=== PATIENT | female | born 1950 | race Caucasian/White ===

== ENCOUNTER 2021-11-21 16:34 | Emergency (ER) | payer MEDICARE, BC, SELFPAY ==
[2021-11-21 16:40] VITALS: BP 145/86; PULSE 80; RESP 20; TEMP 36.4; O2SAT 96; BMI 28.4
[2021-11-21 18:33] VITALS: BP 166/80; PULSE 68; RESP 18; O2SAT 95
--- NOTE | 2021-11-21 19:01 | ED.GENADULT ---
HPI - General Adult General Time Seen by Provider: 19:00 Date Seen: 11/21/21 Chief complaint: Sore Throat Stated complaint: CANNOT BREATHE Time Seen by Provider: 11/21/21 18:39 Source: patient and family History of Present Illness HPI narrative: This 71-year-old female comes in reporting tightness in her throat causing some symptoms of stridor in feeling short of breath. These symptoms began a few hours ago. She has had similar circumstances in the past. Once was a couple years ago and again just last week. I was the doctor that took air for last week and noted that she benefited from racemic epinephrine. She had some stridorous breathing but her lungs were normal. Also last week a CT scan of the soft tissue of the neck was done with contrast showing no obvious findings to explain her symptoms. The patient does not report any fevers. She was discharged with some prescriptions for Protonix and I encouraged use of over counter medicines for treating allergy symptoms. She states she has been taking her medications as prescribed. Related Data Home Medications Medication Instructions Recorded Confirmed albuterol sulfate 90 mcg/actuation 2 inh INHALATION PRN 11/19/21 11/19/21 aerosol inhaler ascorbic acid (vitamin C) 500 mg 500 mg PO DAILY tab 11/19/21 11/21/21 tablet aspirin 81 mg tablet,delayed 81 mg PO QDAY 11/19/21 11/21/21 release budesonide-formoterol HFA 160 2 inh INHALATION BID g 11/19/21 11/21/21 mcg-4.5 mcg/actuation aerosol inhaler calcium carbonate 200 mg calcium 200 mg PO .As Needed PRN 11/19/21 11/21/21 (500 mg) chewable tablet cholestyramine-aspartame 4 gram 4 ea PO DAILY ea 11/19/21 11/19/21 oral powder for susp in a packet fluticasone propionate 50 1 spray INTRANASAL DAILY g 11/19/21 11/19/21 mcg/actuation nasal spray,suspension ibuprofen 200 mg tablet mg PO .Qid Prn 11/19/21 11/19/21 levalbuterol HCl 1.25 mg/3 mL mg INHALATION PRN 11/19/21 11/19/21 solution for nebulization montelukast 10 mg tablet 10 mg PO .Bedtime 11/19/21 11/19/21 potassium chloride 10 mEq 10 meq PO PRN 11/19/21 11/19/21 tablet,extended release(part/cryst) pravastatin 20 mg tablet 20 mg PO .Bedtime tab 11/19/21 11/21/21 triamterene 37.5 1 tab PO DAILY 11/19/21 11/19/21 mg-hydrochlorothiazide 25 mg tablet Allergies Allergy/AdvReac Type Severity Reaction Status Date / Time Cephalosporins Allergy Severe throat Verified 11/18/21 09:56 swelling triamcinolone Allergy Severe throat Verified 11/18/21 09:56 swells shut penicillin V Allergy Mild Hives Verified 11/18/21 09:56 lovastatin Allergy Unknown Hives Verified 11/18/21 09:56 psyllium AdvReac Unknown Verified 11/18/21 09:56 Molds & Smuts Allergy Severe Uncoded 11/18/21 09:56 Erythromycin Allergy Unknown Hives Uncoded 11/18/21 09:56 Review of Systems Status of ROS: Reports: 10 or more systems reviewed and unremarkable except as noted in History and below Narrative: Constitutional: No fevers, no weight gain or loss. Eyes: No discharge. No vision changes. HENT: No congestion, no sore throat, no ear pain. Cardiovascular: No chest pain, no palpitations. Respiratory: No no wheezes, no cough. Tightness in the throat with associated shortness of breath. Gastrointestinal: No abdominal pain, no vomiting, no diarrhea. Genitourinary: No dysuria, no hematuria. Musculoskeletal: Normal range of motion. Skin: No rashes, no pruritis. Neurological: No dizziness, weakness, sensory change, speech change. Endo/Heme/Allergies: No bruising or bleeding. No polydipsia. Pysch: no suicidality, no anxiety, no insomnia. All other systems reviewed and are negative. [facility] Medical History Exacerbation of asthma History of colonic polyps (06/13/10) Surgical History History of cholecystectomy (06/13/10) History of dilation and curettage (06/13/10) Status post cataract extraction Social History Smoking Status: Never smoker Do you use any of these nicotine containing products: None Second hand tobacco smoke exposure: No How often do you have a drink containing alcohol: never AUDIT-C Alcohol total score: 0 Non-prescribed substance use: denies use Exam Narrative: Exam Narrative: Constitutional: Well-developed, well-nourished. HEENT: Normocephalic, atraumatic. Neck: Normal range of motion. Nontender. Supple. Heart: Regular. No murmurs. Normal rate. Intact distal pulses. Lungs: Clear to auscultation. No chest discomfort. No wheezes, rhonchi, or rales. Some mild stridorous breathing. Abdomen: Normal bowel sounds. Nontender. No rebound tenderness. Genitalia: Deferred. Back: No midline tenderness. Normal range of motion. Extremities: Normal range of motion. No injury. Skin: Intact. No rash. Warm. No erythema or pallor. Neurologic: No altered sensation. No weakness. Alert and oriented. Psychiatric: No suicidality. No depression. No insomnia. Some anxiety about her breathing. Nursing notes and vitals signs are reviewed. Const: Vital Signs, click to edit/add: Vital Signs - 24 hr 11/21/21 16:40 11/21/21 18:33 Temperature 97.5 F L Pulse Rate [Right Pulse Oximeter] 80 68 Respiratory Rate 20 18 Blood Pressure [Ri ght Upper Arm] 145/86 H 166/80 H Pulse Oximetry 96 95 Course Course Hospital Course: This patient comes in with some distress with regard to her breathing because of tightness feeling in her neck. Her exam is otherwise rather normal. She received a nebulizer of racemic epinephrine. Vital Signs Vital signs: Initial Vital Signs Temperature 97.5 F L 11/21/21 16:40 Temperature Source Temporal Artery Scan 11/21/21 16:40 Pulse Rate 80 11/21/21 16:40 Respiratory Rate 20 11/21/21 16:40 Blood Pressure 145/86 H 11/21/21 16:40 Blood Pressure Mean 105 11/21/21 16:40 Blood Pressure Position Sitting 11/21/21 16:40 Pulse Oximetry 96 11/21/21 16:40 Oxygen Delivery Method 11/21/21 16:40 Vital Signs Temperature 97.5 F L 11/21/21 16:40 Pulse Rate 80 11/21/21 16:40 Respiratory Rate 20 11/21/21 16:40 Blood Pressure 145/86 H 11/21/21 16:40 Pulse Oximetry 96 11/21/21 16:40 Temperature 97.5 F L 11/21/21 16:40 Pulse Rate 68 11/21/21 18:33 Respiratory Rate 18 11/21/21 18:33 Blood Pressure 166/80 H 11/21/21 18:33 Pulse Oximetry 95 11/21/21 18:33 Medical Decision Making MDM Narrative Medical decision making narrative: This patient comes in with tightness in her breathing as is happened in the past. Her lungs sound clear but she has some straining of her voice and does report some associated anxiety related to these symptoms that are recurrent. She had significant stridor last week and had a full workup. Those results were all reassuring. The patient was improved with epinephrine by a nebulizer last week along with some Ativan. These 2 medicines were administered this week with significant improvement of her symptoms. There certainly is an anxiety component to her symptoms. It given her normal vital signs and exam except for the stridor in her voice and seeing the full workup that was done last week a discussed with the patient about repeating any of these studies. In a process of shared decision making these were declined. The patient does have a follow-up appointment with her primary physician tomorrow. She may benefit from a an upper GI scope for further diagnostic evaluation. She received a prescription for some tablets of Ativan that can be used as needed and directed. Discharge Plan Discharge Clinical Impression: Intermittent stridor Condition: Improved Additional Instructions: Take medication as prescribed. Follow up with MD tomorrow as scheduled. Return if recurrent or worsening symptoms happen. Activity Level: Activity as Tolerated Prescriptions: No Action ibuprofen 200 mg tablet PO .Qid Prn 0RF calcium carbonate 200 mg calcium (500 mg) tablet,chewable 200 mg PO .As Needed PRN0RF ascorbic acid (vitamin C) 500 mg tablet 500 mg PO DAILY 0RF aspirin 81 mg tablet,delayed release (DR/EC) 81 mg PO QDAY 0RF budesonide-formoterol 160-4.5 mcg/actuation HFA aerosol inhaler 2 inh inhalation BID 0RF potassium chloride 10 mEq tablet,ER particles/crystals 10 meq PO PRN0RF cholestyramine-aspartame 4 gram powder in packet 4 ea PO DAILY 0RF fluticasone propionate 50 mcg/actuation spray,suspension 1 spray intranasal DAILY 0RF albuterol sulfate 90 mcg/actuation HFA aerosol inhaler 2 inh inhalation PRN0RF levalbuterol HCl 1.25 mg/3 mL solution for nebulization inhalation PRN0RF pravastatin 20 mg tablet 20 mg PO .Bedtime 0RF montelukast 10 mg tablet 10 mg PO .Bedtime 0RF triamterene-hydrochlorothiazid 37.5-25 mg tablet 1 tab PO DAILY 0RF Rx Instructions: STRENGTH IS 37.5/25 Follow Up/Referrals: Milad Trejo MD [Primary Care Provider] - Stand Alone Forms: [place] Info Instructions
[2021-11-21] MEDS: RACEPINEPHRINE HCL 0.5 ML VIAL.NEB NEB ×2 (19:12→19:57)
[2021-11-21] MEDS: LORazepam 0.5 MG TABLET PO (19:56)
== END 2021-11-21 20:54 ==
PROVIDERS: Emergency Provider Emergency Medicine Emergency Medical Services; PCP Family Medicine
DX: R06.1 Stridor (principal)
CPT/HCPCS: 94640; 99283; 99284; A9270

== ENCOUNTER 2021-12-19 13:44 | Outpatient (CLI) | payer MEDICARE, BC, SELFPAY ==
--- OUTSIDE RECORDS SUMMARY | 2021-11-15 10:05 | XMS_ITS | Continuity of Care Document ---
:1950 Author Care Team Providers Name Role Phone MD Dilshad Trejo Attending Physician MD Dilshad Trejo Primary Care Physician Allergies, Adverse Reactions, Alerts Allergen Type Severity Reaction Last Verified Status Updated Erythromycin Allergy Mild HIVES June Yes Active 2019 Penicillin v Allergy Mild HIVES June Yes Active 2019 Psyllium Adverse Unknown June Yes Active Reaction 2019 Triamcinolone Allergy Severe throat June Yes Active swells shut 2019 Lovastatin Allergy Unknown Hives June Yes Active 2019 Molds & Smuts Allergy Severe February Yes Active 2019 Cephalosporins Allergy Severe THROAT June Yes Activ e SWELLING 2019 Social History Smoking Status Status Start Date End Date Date of Observat ion Ex-smoker (finding) March 3:28pm Observation Status Observation Response Date of Response History provided by Patient June 10, 2019 1 2:00am Where do you live? Own home/apt June 10, 2019 1 2:00am With whom do you live? Spouse June 10 0 12:00am Adult children June 10, 2019 1 2:00am Additional Data Assigned Sex Female Problems Active Problems Medical Problem Onset Date Status History of colon polyps June 13, 2010 Active Asthma June 13, 2010 Active Environmental and seasonal June 13, 2010 Active allergies Obesity with body mass index 30 or Activ e greater Pulmonary nodule Resolved Hyperlipidemia Active Essential hypertension Active Fatty infiltration of liver Active Chronic diarrhea Active Osteopenia Active Diabetes mellitus, type II Active Numbness and tingling of left Active upper extremity Heat exhaustion, unspecified Active vag. hysterectomy without June 13, 2010 Resolved oophorectomy History of dilatation and June 13, 2010 Resolved curettage Removal of nasal polyps June 13, 2010 Resolved Hx of cholecystectomy June 13, 2010 Resolved Knee Scope and Repair Resolved Status post cataract extraction Active Inactive/Resolved Problems Medical Problem Onset Date Status Asthma exacerbation Resolved Medications Medication Status Dose Units Route Directions Qty Days Start End Ins tructions Date Date Albuterol Active 2 PUFF INH Every 4 3 Novembe (Ventolin Hours as r 19, Hfa) 90 Mcg needed 2020 DOSE 11:00am Ascorbic Active 500 MG PO Daily Acid (Vitamin C) 500 Mg TAB Aspirin Active 1 TABLET PO Daily Budesonide-F Active 2 PUFF INH Twice A Day 3 90 Novembe ormoterol r , Fumarate 2020 (Symbicort) 11:00am 160 Mcg/4.5 Mcg INH Calcium Active 500 MG OR As Needed Carbonate (Antacid) (Tums) 500 Mg CHW Cholestyrami Active 4 GM PO Daily 1 Novembe ne Light r , 2020 11:00am Fluticasone Active 1 SPRAY EACH Daily 3 Novembe Propionate NOSTR r , (Nasal) 2020 11:00am Ibuprofen Active 600 MG PO Qid Prn Influenza Active 0.5 ML IM Once 22 February Virus Vacc , Triv Types 2007 A&B 4:52pm (Fluarix) 0.5 Ml INJ Levalbuterol Active 3 MG NEB Every 4 270 Novembe Hcl Hours as r 19, (Xopenex) needed 2020 1.25 Mg/3 Ml 11:00am NEB Metformin Active 750 MG PO Daily 90 Novembe TAKE WI TH Hcl r 19, EVENING MEAL (Metformin 2020 Hcl Er) 750 11:02am Mg TABCR Montelukast Active 10 MG PO Bedtime 90 Novembe Sodium r 19, (Singulair) 2020 10 Mg TAB 11:00am Omeprazole Active 20 MG PO Daily 90 Novembe Magnesium r 19, (Omeprazole) 2020 20 Mg TAB 11:00am Potassium Active 10 MEQ PO Twice A Day 180 Novembe Chloride as needed r 19, Microencaps 2020 (Potassium 11:00am Chloride Er) 10 Meq TAB Pravastatin Active 20 MG PO Bedtime 90 Novembe Sodium r , 2020 11:02am Prednisone Active 20 MG PO Twice A Day 13 1 Tab twice er daily for 5 , days, then 2020 daily for 3 9:16am days. Triamterene/ Active 1 TABLET PO Daily 90 Novembe STR ENGTH IS Hctz r , 37.52020 11:00am Acetaminophe Disconti 1 - 2 TABLET PO Four Times 23 June Ja nuar PRN n/Hydrocodon nued Daily , y e Bitart 2006, (Vicodin) 5 1:31pm 2007 Mg/500 Mg 2:24pm TAB Albuterol Disconti 2 PUFF INH Every 4 (Ventolin nued Hours as r 13th, er Hfa) 90 Mcg needed 2019, DOSE 9:44am 2020 11:00a m Albuterol Disconti 2 PUFF INH Every 4 February (Ventolin nued Hours as 23rd, er Hfa) 90 Mcg needed 2018, DOSE 11:53am 2019 9:44am Albuterol Disconti 2 PUFF INH Every 4 Novemberobe (Ventolin nued Hours as 30, r Hfa) 90 Mcg needed 2017, DOSE 9:21am 2018 11:53a m Albuterol Disconti 2 PUFF INH Every 4 3 November (Ventolin nued Hours as er 7th, 30th, Hfa) 90 Mcg needed 2016 2017 DOSE 2:00pm 9:21am Albuterol Disconti 2 PUFF INH Every 4 3 (Ventolin nued Hours as r 9th, alex Hfa) 90 Mcg needed 2015 11, DOSE 12:52pm 2016 2:00pm Albuterol Disconti 2 PUFF INH Every 4 February (Ventolin nued Hours as 1st, er Hfa) 90 Mcg needed 2015 01, DOSE 4:19pm 2015 12:52p m Albuterol Disconti 2 PUFF INH Every 4 25 May Octobe (Ventolin nued Hours as 19th, r 1st, Hfa) 90 Mcg needed 2014 2014 DOSE 3:40pm 4:19pm Albuterol Disconti 2 PUFF INH Q4-6H Prn 1 Decembe Suryar (Ventolin nued r 6th, y Hfa) 1 Puff 2011, INHA 3:30pm 2014 3:40pm Albuterol Disconti 1 - 2 PUFF INH Every 4-6 1 Decembe Decemb (Ventolin nued Hours as r 2nd, er Hfa) 1 Puff needed 2010 06, INHA 4:07pm 2010 5:41pm Albuterol Disconti 1 - 2 PUFF INH Every 4-6 September (Ventolin nued Hours as 11, er Hfa) 1 Puff needed 2010 06, INHA 3:46pm 2010 4:07pm Albuterol Disconti 90 MCG IN As Needed February 1-2 puffs (Proventil) nued , alex four soheila es 90 Mcg AER 2008, daily, as 9:02pm 2010 needed. Use 6:16pm spacer. Albuterol Disconti 90 MCG IN As Needed December (Proventil) nued , r 1st, 90 Mcg AER 2007 2008 5:30pm 9:02pm Albuterol Disconti 90 MCG IN As Needed October (Proventil) nued , 14th, 90 Mcg AER 2005 2007 4:58pm 1:23pm Albuterol Disconti 90 MCG IN As Needed September (Proventil) nued , , 90 Mcg AER 2005 2005 3:02pm 4:58pm Albuterol Disconti 90 MCG IN As Needed Februa (Proventil) nued ry 90 Mcg AER 2005 2:11pm Albuterol Disconti Februa (Ventolin nued ry Hfa) 90 Mcg , DOSE 2005 2:09pm Azithromycin Disconti 0 PO Daily September BRIE E 500 MG (Zithromax) nued , alex DAY ONE 250 Mg TAB 2010, FOLLOWED BY 3:43pm 2010 250 MG DAILY 9:51am FOR 4 MORE DAYS Azithromycin Disconti 500 MG PO Daily Mayr (Zithromax) nued , y 500 Mg TAB 2006, 3:34pm 2006 2:24pm Budesonide-F Disconti 2 PUFF INH Twice A Day Novem No vemb ormoterol nued , er Fumarate 2019, (Symbicort) 9:44am 2020 160 Mcg/4.5 11:00a Mcg INH m Budesonide-F Disconti 2 PUFF INH Twice A Day 22 February No vemb ormoterol nued , er Fumarate 2019, (Symbicort) 10:54am 2019 160 Mcg/4.5 9:44am Mcg INH Budesonide-F Disconti 2 PUFF INH Twice A Day 1 Oc saurav ormoterol nued y 14, r Fumarate 2020 04, (Symbicort) 12:52pm 2019 160 Mcg/4.5 10:54a Mcg INH m Budesonide-F Disconti 2 PUFF INH Twice A Day 1 February brua ormoterol nued 9, ry Fumarate 2018, (Symbicort) 8:48pm 2019 160 Mcg/4.5 12:52p Mcg INH m Budesonide-F Disconti 2 PUFF INH Twice A Day 1 December obe ormoterol nued , r 9, Fumarate 2018 2018 (Symbicort) 11:18am 8:48pm 160 Mcg/4.5 Mcg INH Calcium/Jing Disconti 2 TAB PO Daily Novemb min D nued er (Calcium , Carbonate/Vi 2020 tamin D) 500 10:27a Mg/200 Unit m TAB Cholecalcife Disconti 2000 UNIT PO Daily November rol (Vitamin nued , D) 2,000 2016 Unit TAB 3:54pm Cholestyrami Disconti 4 GM PO 1-2 Times 90 Decembe Ric h Take other ne nued Daily as r 2nd, , oral (Questran) 4 needed 2010 2012 medica tions Gm POW 4:07pm 4:09pm at least on e hour before this one. Cholestyrami Disconti 4 GM PO 1-3 Times 90 Decembe Dece mb Take other ne nued Daily as r 8th, er oral (Questran) 4 needed 2009 2nd, medica tions Gm POW 2:00pm 2010 at least one 4:07pm hour before this one. Cholestyrami Disconti 4 GM PO 1-3 Times 90 Hcana Decemb Take other ne nued Daily as 29, er oral (Questran) 4 needed 2009 8th, medica tions Gm POW 3:19pm 2009 at least one 2:00pm hour before this one. Cholestyrami Disconti 4 GM PO Daily ne Light nued r 13, er 2020 , 9:44am 2020 11:00a m Cholestyrami Disconti 4 GM PO Daily May ne Light nued , er 2019, 3:40pm 2019 9:44am Clotrimazole Disconti 10 MG PO 5X/Day (Clotrimazol nued r , er e Nathaly) 2019, Mg TROC 9:44am 2020 10:27a m Clotrimazole Disconti 10 MG PO 5X/Day September (Clotrimazol nued , er e Nathaly) 2019, Mg TROC 3:22pm 2019 9:44am Cyclobenzapr Disconti 10 MG PO Bedtime as February emb ine Hcl nued needed , er 2018 9, 10:40am 2019 2:42pm Cyclobenzapr Disconti 10 MG PO Three Times 30 Ja nuar ine Hcl nued A Day er y (Flexeril) , , 10 Mg TAB 2012 2013 2:48pm 8:00am Cyclobenzapr Disconti 10 MG PO Three Times 30 Se ptem ine Hcl nued A Day er 6th, alex (Flexeril) 2012 16, 10 Mg TAB 4:21pm 2012 2:48pm Cyclobenzapr Disconti 10 MG PO Three Times 21 January Sep tem ine Hcl nued A Day , alex (Flexeril) 2012 10, 10 Mg TAB 3:17pm 2012 4:21pm Diphtheria/T Disconti 0.5 ML IM Once May etanus/Acell nu, y Pertussis 2010, (Adacel) 0.5 9:24am 2010 Ml INJ 9:44am Ergocalcifer Disconti 74066 UNIT PO Every 7 May ol (Vitamin nued Days , y D) 50,000 2013, Unt CAP 3:57pm 2014 3:09pm Esomeprazole Disconti 40 MG PO Daily December (Nexium) 40 nued , y Mg CAP 2007, 6:25pm 2008 12:19p m Esomeprazole Disconti 40 MG PO Daily September (Nexium) 40 nued , , Mg CAP 2006 2007 6:43pm 4:32pm Esomeprazole Disconti 40 MG PO Daily September (Nexium) 40 nued y , , Mg CAP 2006 2006 11:42am 6:43pm Esomeprazole Disconti 40 MG PO Daily Octoberua (Nexium) 40 nued , ry Mg CAP 2006 01, 4:58pm 2006 11:42a m Esomeprazole Disconti 40 MG PO Daily 90 August (Nexium) 40 nued , , Mg CAP 2005 2005 5:10pm 4:58pm Esomeprazole Disconti 40 MG PO Daily 90 Februar August (Nexium) 40 nued y , , Mg CAP 2005 2005 10:55am 5:10pm Esomeprazole Disconti 20 MG PO Daily 30 Februar Februa Magnesium nued y , ry (Nexium) 20 2005, Mg CAP 10:51am 2005 10:55a m Esomeprazole Disconti 20 MG PO Daily Februa Magnesium nued ry (Nexium) 20 , Mg CAP 2005 10:51a m Famotidine-C Disconti 1 TAB PO Daily 90 Novembe Novemb alcium nued r 13, er Carbonate-M 2019, (Pepcid 9:44am 2020 Complete) 10 10:27a Mg TAB m Famotidine-C Disconti 1 TAB PO Daily 60 Februar Novemb alcium nued y , er Carbonate-M 2019, (Pepcid 12:32pm 2019 Complete) 10 9:44am Mg TAB Ferrous Disconti 325 MG PO Daily 30 Februar July Sulfate nued y 15, , (Iron 2007 2008 (Ferrous 6:01pm 3:55pm Sulfate)) 325 Mg TAB Fluticasone Disconti 1 SPRAY EACH Daily 3 Novembe Novemb Propionate nued NOSTR r 9, er (Fluticasone 2015, Propionate 12:53pm 2016 (Nasal)) 50 10:12a Mcg/1 [place] m INH Fluticasone Disconti 1 SPRAY EACH Daily 22 February Novemb Propionate nued NOSTR , er (Fluticasone 2015 01, Propionate 4:19pm 2016 (Nasal)) 50 12:53p Mcg/1 [place] m INH Fluticasone Disconti 1 SPRAY EACH Daily 1 Februar Octobe Propionate nued NOSTR y , r 1st, (Fluticasone 2013 2014 Propionate 4:19pm 4:19pm (Nasal)) 50 Mcg/1 [place] INH Fluticasone Disconti 1 SPRAY EACH Daily May Propionate nued NOSTR 14th, 15th, (Fluticasone 2013 2013 Propionate 3:18pm 12:54p (Nasal)) 50 m Mcg/1 [place] INH Fluticasone Disconti 1 SPRAY EACH Daily 1 Decembe Januar Propionate nued NOSTR r 17th, y (Fluticasone 2012 14, Propionate 2:25pm 2013 (Nasal)) 50 3:18pm Mcg/1 [place] INH Fluticasone Disconti 1 SPRAY EACH Daily 1 Decembe Decemb Propionate nued NOSTR r 6th, er (Fluticasone 2011, Propionate 3:30pm 2012 (Nasal)) 50 2:25pm Mcg/1 [place] INH Fluticasone Disconti Februa Propionate nued ry (Flonase) 50 22nd, Mcg/1 [place] 2005 JOSE 2:09pm Fluticasone Disconti 1 SPRAY EACH Daily 3 Novembe Novemb Propionate nued NOSTR r 13th, er (Nasal) 2019, 9:44am 2020 11:00a m Fluticasone Disconti 1 SPRAY EACH Daily 3 Februar Novemb Propionate nued NOSTR y 10th, er (Nasal) 2019 13, 1:40pm 2019 9:44am Fluticasone Disconti 1 SPRAY EACH Daily 3 November Februa Propionate nued NOSTR 30th, ry (Nasal) 2017 10th, 9:21am 2019 1:34pm Fluticasone Disconti 1 SPRAY EACH Daily 3 Novembe Chana Propionate nued NOSTR r 28th, 30th, (Nasal) 2016 2017 10:12am 9:21am Fluticasone Disconti 1 SPRAY NA Daily 30 Decembe Decemb Propionate nued r 2nd, er (Nasal) 2010 06, (Flonase 4:07pm 2010 Nasal [place]) 5:42pm 50 Mcg/[place] JOSE Fluticasone Disconti 1 SPRAY NA Daily 30 Februar Decemb Propionate nued y 23rd, er (Nasal) 2010 06, (Flonase 11:29am 2010 Nasal [place]) 4:07pm 50 Mcg/[place] JOSE Fluticasone Disconti 1 SPRAY NA Daily 25 May Februa Propionate nued , ry (Nasal) 2009, (Flonase 2:38pm 2010 Nasal [place]) 11:29a 50 Mcg/[place] m JOSE Fluticasone Disconti 1 SPRAY NA Daily 25 May Januar Propionate nued , y (Nasal) 2009, (Flonase 8:31am 2009 Nasal [place]) 2:38pm 50 Mcg/[place] JOSE Fluticasone Disconti 1 SPRAY NA Daily 1 Novembe Januar Propionate nued r 1st, y (Nasal) 2007, (Flonase 7:01pm 2009 Nasal [place]) 8:31am 50 Mcg/[place] JOES Fluticasone Disconti 1 SPRAY NA Daily 90 Novem Novemb Propionate nued r 1st, er (Nasal) 2007 05, (Flonase 7:01pm 2007 Nasal [place]) 7:01pm 50 Mcg/[place] JOSE Fluticasone Disconti 1 SPRAY NA Daily Octoberobe Propionate nued , r (Nasal) 2005, (Flonase 4:58pm 2007 Nasal [place]) 3:18pm 50 Mcg/[place] JOSE Fluticasone Disconti 1 SPRAY NA Daily September Propionate nued , , (Nasal) 2005 2005 (Flonase 3:02pm 4:58pm Nasal [place]) 50 Mcg/[place] JOSE Fluticasone Disconti 1 SPRAY NA Daily Februa Propionate nued ry (Nasal) , (Flonase 2005 Nasal [place]) 2:11pm 50 Mcg/[place] JOSE Fluticasone- Disconti 1 PUFF INH Twice A Day 3 November ar Salmeterol nued , y (Advair 2017, Diskus 9:21am 2019 250/50) 250 8:20am Mcg/50 Mcg INH Fluticasone- Disconti 1 PUFF INH Twice A Day [address] Salmeterol nued , (Advair 2018 2018 Diskus 2:58pm 9:44am 500/50) 500 Mcg/50 Mcg INH Fluticasone- Disconti 1 PUFF INH Twice A Day 3 Ju ly Salmeterol nued er , (Advair 2016 2017 Diskus 2:00pm 9:21am 250/50) 250 Mcg/50 Mcg INH Fluticasone- Disconti 1 PUFF INH Twice A Day 3 Novembe Se ptem Salmeterol nued r 9th, alex (Advair 2015 11, Diskus 12:55pm 2016 250/50) 250 2:00pm Mcg/50 Mcg INH Fluticasone- Disconti 1 PUFF INH Twice A Day 1 February No vemb Salmeterol nued 1st, er (Advair 2015 01, Diskus 4:19pm 2015 250/50) 250 12:55p Mcg/50 Mcg m INH Fluticasone- Disconti 1 PUFF INH Twice A Day 1 May Oc saurav Salmeterol nued 19th, r 1st, (Advair 2014 2014 Diskus 3:33pm 4:19pm 250/50) 250 Mcg/50 Mcg INH Fluticasone- Disconti 1 PUFF INH Twice A Day 1 [facility] nuar Salmeterol nued r 6th, y (Advair 2011, Diskus 3:30pm 2014 250/50) 250 3:33pm Mcg/50 Mcg INH Fluticasone- Disconti 1 INHALAT IN Twice A Day 1 [facility] Salmeterol nued ION r 2nd, y (Advair 2010, Diskus 5:41pm 2013 250/50) 250 8:00am Mcg/50 Mcg INH Fluticasone- Disconti 1 INHALAT IN Twice A Day 1 [facility] Salmeterol nued ION r 2nd, er (Advair 2010 06, Diskus 4:07pm 2010 250/50) 250 5:41pm Mcg/50 Mcg INH Fluticasone- Disconti 1 INHALAT IN Twice A Day 1 September cemb Salmeterol nued ION 11th, er (Advair 2010 06, Diskus 3:43pm 2010 250/50) 250 4:07pm Mcg/50 Mcg INH Fluticasone- Disconti 1 INHALAT IN Twice A Day 1 September Salmeterol nued ION er 11th, (Advair 2010 Diskus 2008 3:43pm 250/50) 250 8:07am Mcg/50 Mcg INH Fluticasone- Disconti 1 INHALAT IN Twice A Day 1 September Begin if PFM Salmeterol nued ION y 9th, 3rd, readings (Advair 2006 2006 decreasing. Diskus 11:42am 4:01pm 250/50) 250 Mcg/50 Mcg INH Glucosamine- Disconti 1 CAP PO Daily Decemb Chondroitin nued er (Joint Pain 2nd, Formula) 2010 Cap CAP 3:40pm Glucosamine/ Disconti 3 TAB PO Daily Novemb Chondroitin nued er (Glucosamine , Chondroitin) 2020 TAB 10:27a m Hydrocortiso Disconti 0.2 % EX Twice A Day 28 September Lela mb Use sparingly ne Valerate nued 17th, er until le sions ([place]ort) 2006 12, clear. 0.2 % CRE 6:42pm 2006 3:39pm Influenza A Disconti 0.5 ML IM Once 1 Novembe Novemb (H1n1) nued r 10th, er Monoval 2009 02, Vaccine 9:23am 2008 (Influenza A 9:31am (H1n1) Vaccine) INJ Influenza Disconti 0.7 ML IM Once 1 Novem Novemb Virus Vac nued r 9th, er Split High 2020 01, (Fluzone 3:27pm 2019 High-Dose Pf 4:04pm 2019 0.7 Ml) 1 Inj INJ Influenza Disconti 0.5 ML IM Once Janem Virus Vacc nued er alex Triv Types , , A&B 2008 2008 (Fluarix) 8:25am 8:28am 0.5 Ml INJ Influenza Disconti 0.5 ML IM Once Februaryobe Virus Vacc nued 10th, r Triv Types 2008 02, A&B 3:48pm 2007 (Fluarix) 3:54pm 0.5 Ml INJ Influenza Disconti 0.5 ML IM Once 1 Novembe Octobe Virus Vacc nued r 10th, r Triv Types 2005, A&B 9:29am 2005 (Fluarix) 4:23pm 0.5 Ml INJ Influenza Disconti 0.5 ML IM Once 1 Novembe Novemb Virus nued r 5th, er Vaccine 2017 09, (Fluzone 9:27am 2017 High-Dose 9:39am (65 Yrs And Older) ) 1 Inj INJ Influenza Disconti 0.5 ML IM Once 22 February Octobe Virus nued 4th, r 4th, Vaccine 2010 2010 (Fluzone Pf 10:15am 10:26a [id number] m (0.5 Ml)) 0.5 Ml INJ Influenza Disconti 0.5 ML IM Once 1 Janem Virus nued er 7th, alex Vaccine 2017 7th, Split 1:36pm 2016 (Fluzone 1:45pm High-Dose (65 Yrs And Older) 2015-) 1 Inj INJ Ketorolac Disconti 60 MG IM Once December Tromethamine nued , , 2012 2012 3:20pm 3:29pm Lansoprazole Disconti October (Prevacid) nued , 30 Mg CAPCR 2005 4:31pm Levalbuterol Disconti 1-2 PUFF INH Every 4-6 1 Februar Febr ua (Xopenex nued Hours as y 21st, ry Hfa) 45 Mcg needed 2013 09, INH 12:03pm 2014 3:01pm Levalbuterol Disconti 1.25 MG NEB Q4-6H Prn 24 Decembe Jose ar (Xopenex) nued r 6th, y 1.25 Mg NEB 2011, 3:30pm 2014 3:47pm Levalbuterol Disconti 1-2 PUFF INH Every 4-6 1 Januar (Xopenex nued Hours as y Hfa) 45 Mcg needed , INH 2014 3:09pm Levalbuterol Disconti 1-2 PUFF INH Every 4-6 1 Decembe Febr ua (Xopenex nued Hours as r 30, ry Hfa) 45 Mcg needed 2012, INH 12:12pm 2013 12:03p m Levalbuterol Disconti 1-2 PUFF INH Q4-6H Prn 1 Decembe Dece mb (Xopenex nued r 6th, er Hfa) 45 Mcg 2011, INH 3:30pm 2012 12:12p m Levalbuterol Disconti 1 - 2 PUFF INH Every 4-6 February em (Xopenex nued Hours 14th, alex Hfa) 45 Mcg 2009, INH 8:44am 2010 6:16pm Levalbuterol Disconti 1 - 2 PUFF INH Every 4-6 22 February Octo be (Xopenex nued Hours 8th, r Hfa) 45 Mcg 2008 14th, INH 3:47pm 2009 8:44am Levalbuterol Disconti 1.25 MG IN As Needed 15 January Octob e (Xopenex nued , r 2nd, Concentrate) 2007 2008 1.25 Mg/0.5 5:30pm 3:55pm Ml NEB Levalbuterol Disconti 1.25 MG IN As Needed 15 January Augus t (Xopenex nued 4th, 15th, Concentrate) 2006 2007 1.25 Mg/0.5 1:29pm 11:23a Ml NEB m Levalbuterol Disconti 1 IN Four Times September (Xopenex nued Daily 3rd, Concentrate) 2006 1.25 Mg/0.5 4:01pm Ml NEB Levalbuterol Disconti 1 - 2 PUFF INH Every 4-6 1 uaseptember (Xopenex nued Hours y 9, 3rd, Hfa) 45 Mcg 2006 2006 INH 11:42am 4:01pm Levalbuterol Disconti 3 MG NEB Every 4 270 Novem Novemb Hcl nued Hours as r 13th, er (Xopenex) needed 2019 19, 1.25 Mg/3 Ml 9:44am 2020 NEB 11:00a m Levalbuterol Disconti 1.25 MG NEB Every 4 270 February Novemb Hcl nued Hours as 14, er (Xopenex) needed 2019 13, 1.25 Mg/3 Ml 12:12pm 2019 NEB 9:44am Levalbuterol Disconti 1.25 MG NEB Every 4 270 May Hcl nued Hours as , r (Xopenex) needed 2019 14, 1.25 Mg/3 Ml 3:48pm 2019 NEB 12:12p m Levalbuterol Disconti 1.25 MG NEB Every 4 100 Julyuar Hcl nued Hours as 15, y (Xopenex) needed 2018, 1.25 Mg/3 Ml 12:39pm 2019 NEB 9:08am Levalbuterol Disconti 1.25 MG NEB Every 4 100 November Hcl nued Hours as , , (Levalbutero needed 2015 2018 l Hcl Neb) 3:11pm 3:02pm 1.25 Mg/3 Ml ML Levalbuterol Disconti 1.25 MG NEB Every 4 February Hcl nued Hours as , (Levalbutero needed 2014 2015 l Hcl Neb) 4:19pm 3:11pm 1.25 Mg/3 Ml ML Levalbuterol Disconti 1.25 MG NEB Every 4 May Octobe Hcl nued Hours as , r , (Levalbutero needed 2014 2014 l Hcl Neb) 3:47pm 4:19pm 1.25 Mg/3 Ml ML Levofloxacin Disconti 750 MG PO Daily August (Levaquin) nu, , 750 Mg TAB 2016 2016 11:28am 3:13pm Levofloxacin Disconti 500 MG PO Daily November (Levaquin) nu, er 500 Mg TAB 2006 12, 2:48pm 2006 3:39pm Levofloxacin Disconti 500 MG PO Daily May (Levaquin) , y 500 Mg TAB 2006, 1:31pm 2006 2:24pm Loperamide Disconti 2 MG PO Daily December Hcl (Imodium nu, A-D) 2 Mg 2012 TAB 2:00pm Lovastatin Disconti 20 mg Oral Daily y 2019 8:20am Lovastatin Disconti 20 MG PO Bedtime November nu, alex 2015 11, 4:13pm 2016 1:32pm Lovastatin Disconti 20 MG PO Bedtime February nued , 2014 4:19pm 4:13pm Lovastatin Disconti 20 MG PO Bedtime 90 Februar Octobe nued y , r , 2014 2014 4:44pm 4:19pm Lovastatin Disconti 10 MG PO Bedtime 30 uar Februa nued y , ry 2014, 9:42am 2014 4:44pm Lovastatin Disconti 10 MG PO Bedtime 90 August Februa nued , ry 2014 04, 11:09am 2014 9:42am Lovastatin Disconti 10 MG PO Bedtime 90 Februar Kendra nued y 2013 3:30pm 11:09a m Lovastatin Disconti 10 MG PO Bedtime 30 Februa nued r , ry 2013 10th, 1:18pm 2013 3:30pm Lovastatin Disconti 10 MG PO Bedtime November Novemb nued , er 2012, 5:13pm 2012 1:18pm Lovastatin Disconti 10 MG PO Bedtime August nued , 2012 3:33pm 5:13pm Lovastatin Disconti 10 MG PO Bedtime August nued , 2012 2:01pm 11:14a m Lovastatin Disconti 10 MG PO Bedtime August nued r , 2011 3:30pm 2:01pm Meloxicam Disconti 7.5 MG PO Daily Octobe (Mobic) 7.5 nued r Mg TAB 2005 3:39pm Methylpredni Disconti 1 TAB PO As Directed September DIRECTED solone nued , , ON PACKAGE (Medrol 2020 2020 Dosepak) 4 1:16pm 3:06pm Mg NAHID Methylpredni Disconti 1 TAB PO As Directed October ar DIRECTED solone nued , y ON PACKAGE (Medrol 2018, Dosepak) 4 2:59pm 2019 Mg NAHID 7:43am Methylpredni Disconti 1 TAB PO As Directed July h DIRECTED solone nued , , ON PACKAGE (Medrol 2018 2018 Dosepak) 4 9:20am 2:31pm Mg NAHID Methylpredni Disconti 0 PO As Directed 30 May Ja nuar TAKE solone nued On Pkg , y DIRECTED ON (Medrol 2006, PACKAGE Dose-Nahid) 4 3:44pm 2007 Mg TAB 2:24pm Methylpredni Disconti 125 MG IM Once 1 Februa solone nued y 5th, ry Sodium 2014 09, Succinate 3:21pm 2014 (Solu-Medrol 3:36pm ) 62.5 Mg/ ML Methylpredni Disconti 125 MG IM Once Mayuar solone nued , y Sodium 2014, Succinate 3:33pm 2014 (Solu-Medrol 3:53pm ) 62.5 Mg/ ML Montelukast Disconti 10 MG PO Bedtime 90 Novem Novemb Sodium nued r 15, er (Singulair) 2021 19, 10 Mg TAB 1:35pm 2020 11:00a m Montelukast Disconti 10 MG PO Bedtime 90 Novem Novemb Sodium nued r 13, er (Singulair) 2019 15, 10 Mg TAB 9:44am 2020 1:35pm Montelukast Disconti 10 MG PO Bedtime 90 [place] Novemb Sodium nued 18, er (Singulair) 2019, 10 Mg TAB 3:38pm 2019 9:44am Montelukast Disconti 10 MG PO Bedtime 90 December Sodium nued , , (Singulair) 2018 2019 10 Mg TAB 10:03am 3:38pm Montelukast Disconti 10 MG PO Bedtime 90 November Sodium nued , (Singulair) 2017 2018 10 Mg TAB 9:21am 10:03a m Montelukast Disconti 10 MG PO Bedtime 90 November Sodium nued er , , (Singulair) 2016 2017 10 Mg TAB 2:00pm 9:21am Montelukast Disconti 10 MG PO Bedtime 90 Decemberem Sodium nued , alex (Singulair) 2016 11, 10 Mg TAB 4:08pm 2016 2:00pm Montelukast Disconti 10 MG PO Bedtime 90 November Sodium nued , (Singulair) 2015 2016 10 Mg TAB 4:13pm 4:08pm [facility]i 10 MG PO Bedtime February Sodium nued , (Singulair) 2014 2015 10 Mg TAB 4:19pm 4:13pm [facility]i 10 MG PO Bedtime Mayobe Sodium nued 19th, r 1st, (Singulair) 2014 2014 10 Mg TAB 3:40pm 4:19pm [facility]i 10 MG PO Bedtime 90 Septemberr Sodium nued , y (Singulair) 2013, 10 Mg TAB 9:18am 2014 3:40pm [facility]i 10 MG PO Bedtime 90 uar September Sodium nued y , , (Singulair) 2013 2013 10 Mg TAB 3:30pm 9:18am [facility]i 10 MG PO Bedtime 90 Chana Februa Sodium nued 31st, ry (Singulair) 2012 10th, 10 Mg TAB 5:11pm 2013 3:30pm [facility]i 10 MG PO Bedtime 90 Februar Chana Sodium nued y , 31, (Singulair) 2012 2012 10 Mg TAB 12:42pm 5:11pm [facility]i 10 MG PO Bedtime 90 Decembe Februa Sodium nued r 6th, ry (Singulair) 2011 6th, 10 Mg TAB 3:30pm 2012 12:42p m [facility] Disconti 10 MG PO Bedtime 90 Novembe Februa Sodium nued r 9th, ry (Singulair) 2011 6th, 10 Mg TAB 12:11pm 2012 12:39p m [facility] Disconti 10 MG PO Bedtime 90 [place] Novemb Sodium nued 7th, er (Singulair) 2011 9th, 10 Mg TAB 12:00pm 2011 12:11p m [facility] Disconti 10 MG PO Bedtime 90 November Sodium nued 28, , (Singulair) 2010 2011 10 Mg TAB 9:36am 12:00p m [facility]conti 10 MG PO Bedtime 90 November Sodium nued , , (Singulair) 2009 2010 10 Mg TAB 3:20pm 9:36am [facility]i 10 MG PO Bedtime 90 November Sodium nued , 29, (Singulair) 2008 2009 10 Mg TAB 10:44am 3:20pm [facility]i 10 MG PO Bedtime 90 November Sodium nued 15, 15, (Singulair) 2008 2008 10 Mg TAB 10:43am 12:11p m Montelukast Disconti 10 MG PO Bedtime 90 December Sodium nued , 15, (Singulair) 2007 2008 10 Mg TAB 6:25pm 10:43a m Montelukast Disconti 10 MG PO Bedtime 90 September Sodium nued 17, , (Singulair) 2006 2007 10 Mg TAB 6:43pm 4:32pm Montelukast Disconti 10 MG PO Bedtime 90 October Sodium nued , , (Singulair) 2005 2006 10 Mg TAB 4:58pm 6:43pm Montelukast Disconti 10 MG PO Bedtime September Sodium nued , (Singulair) 2005 2005 10 Mg TAB 2:32pm 4:58pm Montelukast Disconti October Sodium nued , (Singulair) 2005 10 Mg TAB 4:31pm Montelukast Disconti 10 MG PO Bedtime August Sodium nued , (Singulair) 2005 2005 10 Mg TAB 11:30am 11:31a m Montelukast Disconti 10 MG PO Bedtime 21 September Sodium nued , (Singulair) 2005 10 Mg TAB 11:30a m Multiple Disconti 1 EA PO Daily Vitamin nu y (Multivitami , ns) 2019 8:20am Multiple Disconti 2 EA PO Daily Novemb Vitamins W/ nued er Minerals , (Multivitami 2020 n Gummies 10:27a Adul) m Gummies CHW Omeprazole Disconti 20 MG PO Daily Novemberuar nued , 2009, 12:32pm 2010 8:54am Omeprazole Disconti 20 MG PO Daily September nued , 2008 3:51pm 12:32p m Omeprazole Disconti 20 MG PO Daily May nued 2008 12:19pm 3:51pm Omeprazole Disconti 20 MG PO Daily February Magnesium nued , er (Omeprazole) 2020, 20 Mg TAB 11:08am 2020 11:00a m Pneumococcal Disconti 0.5 ML IM Once December Polyvalent nued , Vaccine 2018 2018 (Pneumovax 11:11am 11:25a 23) 25 m Mcg/0.5 Ml INJ Pneumococcal Disconti 0.5 ML IM Once Polyvalent nued er , alex Vaccine 2017 , (Prevnar 13) 1:35pm 2016 0.5 Ml INJ 1:45pm Potassium Disconti 20 MEQ PO Twice A Day Octoberuar Chloride nued , y (K-Dur) 2018, Meq TABCR 10:13pm 2019 8:20am Potassium Disconti 20 MEQ PO Twice A Day 60 December Chloride nued , 142017 7:31pm 11:38a m Potassium Disconti 10 MEQ PO Twice A Day 180 Novembe Novem b Chloride nued as needed r 13, er Microencaps 2019, (Potassium 9:44am 2020 Chloride Er) 11:00a 10 Meq TAB m Potassium Disconti 10 MEQ PO Twice A Day 60 Februar Novem b Chloride nued as needed y 28, er Microencaps 2019, (Potassium 4:44pm 2019 Chloride Er) 9:44am 10 Meq TAB Potassium Disconti 10 MEQ PO Daily as Februa Chloride nued needed ry Microencaps , (Potassium 2019 Chloride Er) 4:44pm 10 Meq TAB Pravastatin Disconti 10 MG PO Bedtime 135 Novembe Novemb Take 1/2 tab Sodium nued r , er of 20mg (Pravachol) 2019, tablet d aily 20 Mg TAB 9:44am 2020 at HS 10:34a m Pravastatin Disconti 10 MG PO Bedtime 45 December T benjie 1/2 tab Sodium nued , er of 20mg (Pravachol) 2019, tablet d aily 20 Mg TAB 12:51pm 2019 at HS 9:44am Pravastatin Disconti 10 MG PO Bedtime 45 December Take 1/2 tab Sodium nued y , , of 20mg (Pravachol) 2019 2019 tablet d aily 20 Mg TAB 2:49pm 12:51p at HS m Pravastatin Disconti 10 MG PO Bedtime 45 December T benjie 1/2 tab Sodium nued , ry of 20mg (Pravachol) 2018, tablet d aily 20 Mg TAB 10:03am 2019 at HS 2:49pm Pravastatin Disconti 10 MG PO Bedtime 45 November Ta ke 1/2 tab Sodium nued , of 20mg (Pravachol) 2017 2018 tablet d aily 20 Mg TAB 9:21am 10:03a at HS m Pravastatin Disconti 10 MG PO Bedtime 45 November T benjie 1/2 tab Sodium nued er , , of 20mg (Pravachol) 2016 2017 tablet d aily 20 Mg TAB 2:00pm 9:21am at HS Pravastatin Disconti 10 MG PO Bedtime 45 Decembe Septem Take 1/2 tab Sodium nued r 2nd, alex of 20mg (Pravachol) 2015 7th, tablet d aily 20 Mg TAB 8:32am 2017 at HS 2:00pm Prednisone Disconti 20 MG PO Twice A Day 13 Sept Sept em 1 Tab twice nued er alex daily for 5 10th, 16th, days, then 2020 2020 daily for 3 8:21am 9:16am days. Prednisone Disconti 10 MG PO Daily 40 September Take 2 tablets daily in the am with food for 7 days then nued , alex one tablet christen ly. 2021 02, 1:12pm 2020 8:21am Prednisone Disconti 60 MG PO Daily September 60 mg QD for 3 days, then 40 mg QD for 3D, then 20 mg QD nued , for 3 days. T benjie with food. 2020 2020 3:24pm 1:12pm Prednisone Disconti 20 MG PO Twice A Day 10 September take with nued , , food 2020 2020 11:44am 1:16pm Prednisone Disconti 40 MG PO Daily With 13 June Febru a Take 40 mg daily for 5 days and then 60 mg at the start of nued Am Meal , ry an asthma ex acerbation. 2019, 9:38am 2019 10:15a m Prednisone Disconti 10-40 MG PO Daily Ud October 40 MG PO DAILY FOR 4 DAYS, THEN nued , , 20 MG PO DAILY FOR 4 DAYS, THEN 2018 2018 10 MG PO DAILY FOR 4 DAYS. 10:13pm 9:44am Prednisone Disconti 20 MG PO Every 7 July nued Morning , 2018 3:10pm 2:24pm Prednisone Disconti 20 MG PO Twice A Day August nued , 2016 11:28am 3:13pm Prednisone Disconti 10-40 MG PO As Directed 18 Februar Octo be 40 MG PO DAILY FOR 5 DAYS, THEN 20 MG PO DAILY FOR 5 DAYS, nued y , r 1st, THEN 10 MG PO DAILY FOR 5 DAYS. 2014 2014 4:44pm 3:54pm Prednisone Disconti 10-40 MG PO As Directed 18 Februar Febr ua 40 MG PO DAILY FOR 5 DAYS, THEN 20 MG PO DAILY FOR 5 DAYS, nued y , ry THEN 10 MG PO DAILY FOR 5 DAYS. 2014, 3:21pm 2014 4:08pm Prednisone Disconti 20 MG PO Daily as Februa nued needed ry 2014 3:01pm Prednisone Disconti 20 MG PO Daily September 1 tab a day nued , alex for 5 days 2010, prn, for 3:43pm 2010 asthma 9:52am exacerbations Prednisone Disconti 20 MG PO Daily 26 September 1 tab a day nued 11, for 5 days 2010 prn, for 3:43pm asthma exacerbations Prednisone Disconti 20 MG PO Daily February as n eeded for nued , asthma 2008 2009 exacerbation 11:18am 2:35pm only. Prednisone Disconti 20 MG PO Daily Decemberem nued 18, alex 2007 4th, 3:51pm 2007 3:23pm Prednisone Disconti 20 MG PO Daily Decemberem nued 18, alex 2007 4th, 3:53pm 2007 3:23pm Prednisone Disconti 10 MG PO Daily May TAKE 1 0 MG nued , FOR 4 DAYS 2006 AND THEN 5 MG 4:01pm FOR 4 DAYS AND THEN D/C. Ranitidine Disconti 150 MG PO Twice A Day 180 Sept Octo be Hcl nued er r , 2018 10:01a 6:18pm m Ranitidine Disconti 150 MG PO Twice A Day Novemberem Hcl nued , alex 2017, 9:21am 2018 6:18pm Ranitidine Disconti 150 MG PO Twice A Day 180 November Hcl nued er 2016 2:00pm 9:21am Ranitidine Disconti 150 MG PO Twice A Day Novemberem Hcl nued , alex 2015 11, 4:13pm 2016 2:00pm Ranitidine Disconti 150 MG PO Twice A Day February Hcl nued , 2014 4:19pm 4:13pm Ranitidine Disconti 150 MG PO Twice A Day 180 Februar Octo be Hcl nued y , r 2014 9:41am 4:19pm Ranitidine Disconti 150 MG PO Twice A Day 180 August Februa Hcl nued , ry 2013 12th, 3:38pm 2014 9:41am Ranitidine Disconti 150 MG PO Twice A Day 60 May Apri l Hcl nued 15, , 2013 2013 12:13pm 4:04pm Ranitidine Disconti 150 MG PO Twice A Day 60 Februar Apri l Hcl nued y , 2013 2:31pm 3:38pm Ranitidine Disconti 150 MG PO Twice A Day 200 November Januar Hcl (Zantac) nued 26, y 150 Mg CAP 2012, 8:06am 2013 8:00am Ranitidine Disconti 150 MG PO Twice A Day 60 Novembe Jose ar Hcl nued r 19, y 2012, 1:17pm 2013 12:13p m Ranitidine Disconti 150 MG PO Twice A Day 180 July Hcl (Zantac) nued 14, , 150 Mg CAP 2012 2012 3:36pm 8:06am Ranitidine Disconti 150 MG PO Twice A Day 180 Decembe Ric h Hcl (Zantac) nued r 6th, 14th, 150 Mg CAP 2011 2012 3:30pm 3:36pm Ranitidine Disconti 150 MG PO Twice A Day 30 February Dece mb Hcl (Zantac) nued 4th, er 150 Mg CAP 2010 2nd, 10:12am 2010 4:07pm Tetanus-Diph Disconti 0.5 ML IM Once 1 Novem Novemb theria nued r 9, er Toxoids (Td 2019 9, (Tetanus/Dip 3:26pm 2019 htheria 4:03pm Toxoid) 1 Ml INJ Triamterene/ Disconti 1 TABLET PO Daily 90 b STRENGTH IS Hctz nued r 13, er 37.52019, 9:44am 2020 11:00a m Triamterene/ Disconti 1 TABLET PO Daily February STRENGTH IS Hctz nued 14th, er 37.52019, 12:12pm 2019 9:44am Triamterene/ Disconti 1 TABLET PO Daily Novemberobe [facility] IS Hctz nued 6th, r 37.52019, 4:56pm 2019 12:12p m Triamterene/ Disconti 1 TABLET PO Daily 90 November S TRENGTH IS Hctz nued er 6th, 37.10/16 4:56pm 2:16pm Triamterene/ Disconti 1 TABLET PO Daily [address] RENGTH IS Hctz nued , alex 37.10/16, 9:21am 2018 2:16pm Triamterene/ Disconti 1 TABLET PO Daily 90 November S TRENGTH IS Hctz nued er , , 37.10/16 2:00pm 9:21am Triamterene/ Disconti 1 TABLET PO Daily December S TRENGTH IS Hctz nued , alex 37.10/16, 4:08pm 2016 2:00pm Triamterene/ Disconti 1 TABLET PO Daily November ST REN[facility] IS Hctz nued , , 37.10/16 4:13pm 4:08pm Triamterene/ Disconti 1 TABLET PO Daily February S TRENGTH IS Hctz nued , , 37.10/16 10:23am 4:13pm Triamterene/ Disconti 1 TABLET PO Daily 23 March Octobe STRENGTH IS Hctz nued , r 37.10/16, 4:19pm 2014 10:23a m Triamterene/ Disconti 1 TABLET PO Daily December S TRENGTH IS Hctz nued , r , 37.10/16 10:20am 4:19pm Triamterene/ Disconti 1 TABLET PO Daily September ST REN[facility] IS Hctz nued , , 37.10/16 9:35am 10:20a m Triamterene/ Disconti 1 TABLET PO Daily 100 Februar September S TRENGTH IS Hctz nued y , , 37.10/16 9:41am 9:35am Triamterene/ Disconti 1 TABLET PO Daily 100 February Februa STRENGTH IS Hctz nued , ry 37.10/16, 3:41pm 2014 9:41am Triamterene/ Disconti 1 TABLET PO Daily July Octobe ST RENGT IS Hctz nued , r 37.10/16, 1:01pm 2013 3:41pm Triamterene/ Disconti 1 TABLET PO Daily 100 November STR ENGTH IS Hctz nued , , 37.52012 5:12pm 1:01pm Triamterene/ Disconti 1 TABLET PO Daily 90 May S TRENGTH IS Hctz nued , , 37.52012 8:47am 5:12pm Triamterene/ Disconti 1 TABLET PO Daily December S TRENGTH IS Hctz nued , y 37.10/17 2011 15, 11:21am 2012 8:47am Triamterene/ Disconti 1 TABLET PO Daily 90 December STRENGTH IS Hctz nued r , , 37.52010 4:07pm 11:21a m Triamterene/ Disconti 1 TABLET PO Daily September [facility] IS Hctz nued , er 37.10/16, 12:42pm 2010 4:07pm Triamterene/ Disconti 1 TABLET PO Daily 100 September TRENGTH IS Hctz nued y , , 37.52009 11:01am 12:42p m Triamterene/ Disconti 1 CAP PO Daily October Hctz nued , y (Dyazide) 2008, 37.5 Mg/25 5:20pm 2010 Mg CAP 8:54am Triamterene/ Disconti 1 CAP PO Daily October Hctz nued er , (Dyazide) 2008 37.5 Mg/25 2007 5:20pm Mg CAP 12:33pm Triamterene/ Disconti 1 CAP PO Daily May Hctz nued , alex (Dyazide) 2007, 37.5 Mg/25 8:58am 2007 Mg CAP 10:11a m Vitamins W/ Disconti 2 TABLET PO Three Times Silvia lipscomb Lipotropics nued A Day er (Lipocomplex , ) TAB 2020 10:27a m Immunizations Immunization Event Date Not Given Dose Combatant Diver Qualified Lot Vac cine Reason Number Number Informatio n Statement (VIS) Deta il COVID-19 Pfizer July 27, PFIZER-BIONTECH [id number] 2020 COVID-19 Pfizer August 17, PFIZER-BIONTECH [id number] 2020 Influenza February 22 Sanofi Pasteur Inc [id number] 2007 Influenza January 24 GlaxoSmithKline [id number] 2008 Influenza February 25 Sanofi Pasteur [id number] 2010 Influenza January 26 [id number] 2014 Influenza February 24, [id number] 2015 Influenza January 28 Sanofi [id number] 2016 Influenza March 31 SANOFI [id number] 2017 Influenza January 30 [id number] 2018 Influenza April 02 SANOFI [id number] 2019 Prevnar Adult January 23 WYETH [id number] 2016 Pneumovax Adult January 232016 Pneumovax Adult December 23 MERCK 2018 Tetanus/Dipther May 25 ia 2010 Tetanus/Dipther March 26 MASS BIOLO ia 2019 Tdap May 25 Sanofi [id number] (adolescent/bella 2010 lt) Medical Equipment Device Date Implanted Device Details TECNIS IOL April 06, 2020 NOEMY: [id number] Issuing Agency: [facility] Device Id: [id number] Expiration Date: 08-29-25 Serial Number: [id number] TECNIS IOL April 27, 2020 NOEMY: [id number] Issuing Agency: [facility] Device Id: [id number] Expiration Date: 07-30-06 Serial Number: [id number] Advance Directives Advance Directive Response Recorded Date/Time Does Pt have Health Care Yes March 01 8:20am Directive? Has patient completed a Yes April 13 3:28pm Health Care Directive? Insurance Providers Guarantor Maikel Garcia Address [address] [facility] [facility] [address] Contact Info. Home Phone: Payer Policy Id Coverage Id Subscriber's Subscriber Id Effective E xpiration Name Date Date [employer] [id number] [id number] Maikel Nick 2018 Plan of Treatment Future Tests Future scheduled test information is unavailable Pending Tests Pending diagnostic test information is unavailable Future Visits Future appointment information is unavailable Referrals to Other Providers Reason for Referral Start Provider Provider Contact Provider Address Referral Date Information Patient scheduled [place], Work Phone: [facility] with our [place] Maikel DPT [address] [place] [address] rehab clinic on [facility] [address] 03/14/19, at 0815. klm Cervical [place], Work Phone: [facility] paraspinous muscle Maikel DPT [address] [facility] 5 1222 Future Procedures Procedure Name Scheduled Date MT Bilat Mammo Scrn Future Medications Future medication information is unavailable Patient Instructions See Additional Instructions Transient Ischemic Attack (ED) Heat Exhaustion (ED)
--- NOTE | 2021-12-19 14:00 | CRLHL7_ITS ---
For Patients: As a result of the Cures Act, medical imaging exams and procedure reports are released immediately into your electronic medical record. You may view this report before your referring provider. If you have questions, please contact your health care provider. BILATERAL MAMMOGRAM WITH COMPUTER-AIDED DETECTION AND TOMOSYNTHESIS 12/19/2021 TECHNIQUE: CC and MLO views were obtained. These mammographic images have been obtained using full-field digital technique. These mammographic images were interpreted with the benefit of computer-aided detection. Breast Tomosynthesis was used in this interpretation. COMPARISON FILM: 11/08/2020, 03/31/2019, 02/16/2018. FINDINGS: The breasts are heterogeneously dense, which may obscure small masses Possible 1 cm asymmetry LEFT breast 2 o???clock position, 5 cm from the nipple. Negative findings RIGHT breast. IMPRESSION: Possible LEFT breast asymmetry. ASSESSMENT: BI-RADS Category 1: Negative RECOMMENDATION: Recommend CC and MLO spot compression view and 90-degree lateral view. Additionally, ultrasound may be needed during the diagnostic evaluation. The [facility] will contact the patient for follow-up. BI-RADS Category 0: Incomplete - Need Additional Imaging evaluation and/or Prior Mammograms for Comparison Juanita Angela M.D. Diagnostic/Breast Radiologist [email or web address] Transcribed: 9:54 am DW/Dictated by: Juanita Angela MD @ 12/20/2021 8:37:00 AM (Electronically Signed)
== END 2021-12-19 13:45 | disposition home or self-care (01) ==
LOC: MAMMO 13:48
PROVIDERS: PCP Family Medicine; Visit Provider Family Medicine
DX: Z12.31 Encounter for screening mammogram for malignant neoplasm of breast (principal); N63.20 Unspecified lump in the left breast, unspecified quadrant; R92.2 Inconclusive mammogram
CPT/HCPCS: 77063; 77067

== ENCOUNTER 2021-12-24 08:17 | Outpatient (CLI) | payer MEDICARE, BC, SELFPAY ==
--- NOTE | 2021-12-24 08:45 | CRLHL7_ITS ---
For Patients: As a result of the Century Cures Act, medical imaging exams and procedure reports are released immediately into your electronic medical record. You may view this report before your referring provider. If you have questions, please contact your health care provider. DIGITAL DIAGNOSTIC LEFT MAMMOGRAM USING TOMOSYNTHESIS AND COMPUTER-AIDED DETECTION LEFT BREAST ULTRASOUND CLINICAL HISTORY: LEFT breast mass/asymmetry. COMPARISON: 12/19/2021. TECHNIQUE: Digital LEFT mammogram in three projections. Tomosynthesis and CAD utilized. Real-time ultrasound imaging of LEFT breast with imaging documentation. Scanning was performed by both the technologist and the radiologist. BREAST COMPOSITION: The breast is heterogeneously dense, which may obscure small masses. FINDINGS: 3D spot compression CC, 3D spot compression MLO and 3D true lateral LEFT breast mammograms submitted. Benign calcifications are present. Several dense areas are present within the LEFT breast without convincing evidence of architectural distortion. Ovoid density within the upper outer quadrant noted. Targeted sonogram upper outer quadrant performed. Several small simple cysts are present. At 12 o`clock 4 cm from the nipple there is a densely shadowing hypoechoic area measuring 4 x 3 x 4 millimeters at mid depth. An additional subtle focus decreased echogenicity is located within the breast at 2 o`clock 4 cm from the nipple measuring 3 x 3 x 4 millimeters at mid depth. IMPRESSION: Two suspicious foci within the LEFT breast, including 12 o`clock 4 cm from the nipple and 2 o`clock 4 cm from the nipple. RECOMMENDATIONS: Ultrasound-guided core needle biopsy of both lesions. BI-RADS Category 4: Suspicious Results and recommendations discussed with the patient. A lay language report of this examination will be provided to the patient. Dictated by Zach Grier MD @ 12/24/2021 9:51:34 AM jj/Dictated by: Zach Grier MD @ 12/24/2021 9:51:00 AM (Electronically Signed)
--- NOTE | 2021-12-24 09:15 | CRLHL7_ITS ---
For Patients: As a result of the Cures Act, medical imaging exams and procedure reports are released immediately into your electronic medical record. You may view this report before your referring provider. If you have questions, please contact your health care provider. LEFT BREAST ULTRASOUND PLEASE SEE DIGITAL DIAGNOSTIC LEFT MAMMOGRAM PERFORMED SAME DAY CRL:kev angulo/Dictated by: Zach Grier MD @ 12/24/2021 9:51:00 AM (Electronically Signed)
== END 2021-12-24 08:18 | disposition home or self-care (01) ==
LOC: MAMMO 08:18
PROVIDERS: PCP Family Medicine; Visit Provider Family Medicine
DX: R92.8 Other abnormal and inconclusive findings on diagnostic imaging of breast (principal); R92.2 Inconclusive mammogram
CPT/HCPCS: 76642; 77065; G0279

== ENCOUNTER 2021-12-27 08:19 | Outpatient (CLI) | payer MEDICARE, BC, SELFPAY ==
--- NOTE | 2021-12-27 11:00 | CRLHL7_ITS ---
For Patients: As a result of the Cures Act, medical imaging exams and procedure reports are released immediately into your electronic medical record. You may view this report before your referring provider. If you have questions, please contact your health care provider. PLEASE SEE ULTRASOUND-GUIDED LEFT BIOPSY PERFORMED SAME DAY CRL:kev angulo/Dictated by: Zach Grier MD @ 12/27/2021 11:46:00 AM (Electronically Signed)
--- NOTE | 2021-12-27 11:00 | CRLHL7_ITS ---
For Patients: As a result of the Century Cures Act, medical imaging exams and procedure reports are released immediately into your electronic medical record. You may view this report before your referring provider. If you have questions, please contact your health care provider. ULTRASOUND-GUIDED BREAST BIOPSY OF TWO SITES AND POST-BIOPSY DIGITAL MAMMOGRAM FOR BIOPSY MARKER PLACEMENT CLINICAL HISTORY: Two indeterminate lesions LEFT breast. COMPARISON STUDIES: Mammogram and ultrasound 12/24/2021. TECHNIQUE: Real-time ultrasound with image documentation was used for targeting the breast lesions. A spring-loaded biopsy system was used to obtain core tissue samples with a 18 gauge needle. Post-biopsy CC and ML digital mammograms were obtained to document position of the biopsy marker. CONSENT and TIME OUT: The procedure, risks, and alternatives were explained to the patient and a consent was signed. [place] Protocol was followed including pre-procedure verification that relevant information/documentation was available, reviewed and properly matched to the patient; consent accurate and complete; and equipment and supplies available. Time Out was conducted just prior to starting procedure to verify the four required elements: patient identity, correct side/site marked (if applicable), procedure, relevant images/results properly labeled and displayed (if applicable). PROCEDURE: All biopsies were performed in a similar manner. The patient was positioned supine on the ultrasound table. The breast was prepped with ChloraPrep. 8 cc 1 percent lidocaine used for local anesthesia. Core samples were obtained. A sterile metal biopsy clip was placed percutaneously to danuta the lesion position within the breast. The specimens were placed in 10% formalin and sent to the Pathology Department. Pressure was held on the biopsy site until all bleeding subsided. The skin incision was closed with Steri-Strips. An ice pack was positioned over the biopsy site. The patient tolerated the procedure well. Post-biopsy instructions were reviewed with the patient, and a written copy was given to her. SITE A: LATERALITY: LEFT breast 12 o`clock 4 cm from the nipple. LESION: Hypoechoic shadowing lesion measuring 4 x 3 x 4 millimeters. SUSPICION: Medium. NUMBER OF SAMPLES: 6. BIOPSY CLIP SHAPE: Coil. PROXIMITY OF CLIP TO TARGET: Within. SITE B: LATERALITY: LEFT breast 2 o`clock 4 cm from the nipple. LESION: Ill-defined hypoechoic lesion adjacent to a simple cyst measuring 3 x 3 x 4 millimeters. SUSPICION: Low. NUMBER OF SAMPLES: 5. BIOPSY CLIP SHAPE: Ribbon. PROXIMITY OF CLIP TO TARGET: Within. DISTANCE BETWEEN: Sites A and B: 2.7 cm. IMPRESSION: Ultrasound-guided breast biopsy of two sites. When the pathology report is available, an addendum to this report will be made. ACR not applicable Dictated by Zach Grier MD @ 12/27/2021 11:45:49 AM jj/Dictated by: Zach Grier MD @ 12/27/2021 11:45:00 AM ----- ADDENDUM ----- Addendum: Both biopsied lesions are benign and negative for atypia and malignancy. There is evidence of chronic inflammation. This is concordant. Recommend routine annual bilateral screening mammography. Dictated by Zach Grier MD @ Dec 27 2021 11:45AM Signed by:?Zach Grier MD @12/27/2021 12:38:14 PM (Electronically Signed)
== END 2021-12-27 08:20 | disposition home or self-care (01) ==
LOC: US 08:21
PROVIDERS: PCP Family Medicine; Visit Provider Family Medicine
DX: N63.20 Unspecified lump in the left breast, unspecified quadrant (principal); N60.32 Fibrosclerosis of left breast; R92.8 Other abnormal and inconclusive findings on diagnostic imaging of breast
CPT/HCPCS: 19083; 19084; 76942; 77065; 88305; A4648; A4649; G0279

== ENCOUNTER 2022-03-07 11:10 | Outpatient (REF) | payer MEDICARE, BC, SELFPAY ==
--- OUTSIDE RECORDS SUMMARY | 2022-03-07 11:17 | XMS_ITS | Encounter Summary ---
:1950 Author Organization [facility] Address [address] [place] [id number] Care Team Providers Name Role Phone Unavailable Primary Care Provider Unavailable Reason for Visit Outpatient (Routine) - Closed Specialty Diagnoses / Procedures Referred By Contact Refer red To Contact Otorhinolaryngology Citlalli Corley M.D. [address] [place] [phone] Referral ID Status Reason Start Date Expiration Date Visits Requ ested Visits Authorized [id number] Closed 01/03/2022 01/03/2023 1 1 Encounter Details Date Type Department Care Team Description 01/22/2022 Office Visit Department of Camille Arredondo Otorhinolaryngology in Tori Cartwright M.D. Pleomorphic [place], [place] [address] [place] [address] (Primary Dx) [address] [place] [phone] Social History Tobacco Use Types Packs/Day Years Used Date Smoking Tobacco: Former Cigarettes 05/1967 - 01/23/1985 Smokeless Tobacco: Never Comments: I was never a heavy smoker. 1 pack would last a week. Alcohol Use Standard Drinks/Week Comments Not Currently 0 (1 standard drink = 0.6 oz pure alcoho l) Alcohol Habits Answer Date Recorded How often do you have a drink containing alcohol? Monthly or less 12/25/2021 How many drinks containing alcohol do you have on a 1 or 2 12/25/2021 typical day when you are drinking? How often do you have six or more drinks on one Never 12/25/2021 occasion? Comment: Not asked Social Isolation Answer Date Recorded In a typical week, how many times do you More than three soheila es a week 12/25/2021 talk on the phone with family, friends, or neighbors? How often do you get together with friends Once a week 12/25/2021 or relatives? How often do you attend buddhist or Not asked amish services? Do you belong to any clubs or [employer] 12/25/2021 organizations such as buddhist groups, unions, fraBid Nerd or athletic groups, or school groups? How often do you attend meetings of the More than 4 times pe r year 12/25/2021 clubs or organizations you belong to? Are you now , , , 12/25/2021 , never or living with a partner? Physical Activity Answer Date Recorded On average, how many days per week do you engage in moderate 0 days 12/25/2021 to strenuous exercise (like walking fast, running, jogging, dancing, swimming, biking, or other activities that cause a light or heavy sweat)? On average, how many minutes do you engage in exercise at No t asked this level? Stress Answer Date Recorded Do you feel stress - tense, restless, nervous, or anxious, N ot at all 12/25/2021 or unable to sleep at night because your mind is troubled all the time - these days? Financial Resource Strain Answer Date Recorded How hard is it for you to pay for the very basics like Not h tennille at all 12/25/2021 food, housing, medical care, and heating? Intimate Partner Violence Answer Date Recorded Within the last year, have you been afraid of your partner o r No 12/25/2021 ex-partner? Within the last year, have you been humiliated or emotionall y No 12/25/2021 abused in other ways by your partner or ex-partner? Within the last year, have you been kicked, hit, slapped, or No 12/25/2021 otherwise physically hurt by your partner or ex-partner? Within the last year, have you been raped or forced to have any No 12/25/2021 kind of sexual activity by your partner or ex-partner? Food Insecurity Answer Date Recorded Within the past 12 months, you worried that your food would Never true 12/25/2021 run out before you got money to buy more. Within the past 12 months, the food you bought just didn't N ever true 12/25/2021 last and you didn't have money to get more. Transportation Needs Answer Date Recorded In the past 12 months, has lack of transportation kept you f rom No 12/25/2021 medical appointments or from getting medications? In the past 12 months, has lack of transportation kept you f rom No 12/25/2021 meetings, work, or getting things needed for daily living? Housing Stability Answer Date Recorded In the last 12 months, was there a time when you were not ab le No 12/25/2021 to pay the mortgage or rent on time? In the last 12 months, how many places have you lived? 1 12/25/2021 In the last 12 months, was there a time when you did not hav e a No 12/25/[address] sleep or slept in a fci (including now)? Education Answer Date Recorded What is the highest level of school Associate degree: amador herrera, 12/25/2021 you have completed or the highest technical, or vocational p rogram degree you have received? Sex Assigned at Date Recorded Female 12/25/2021 1:18 PM CDT documented as of this encounter Progress Notes Tori Arredondo M.D. - 01/22/2022 11:30 AM CDT SUBJECTIVE CHIEF COMPLAINT / REASON FOR VISIT Ms. Thomas is a 71 y.o. female who returns for oncologic follow-up. 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 Left superficial parotidectomy 2. Facial nerve monitoring 01/03/2022 Biopsy/Pathology FINAL DIAGNOSIS A. Parotid gland, left superficial parotidectomy: Pleomorphic adenoma forms a circumscribed 1.5 x 1.4 x 1.0 cm mass.. Margins are negative for tumor. A single periparotid lymph node is benign. Ms. Thomas has been doing well since our last visit. The patient notes no new head and neck symptoms. OBJECTIVE PHYSICAL EXAMINATION General: 71 y.o. female in no acute distress. Ambulates on and off the exam table without difficulty. Incision: Clean, dry, and intact without signs of erythema or drainage at the time of discharge. Glue removed. Neuro: I/ bilaterally, small area of numbness in the patito-incisional and ear lobe region. DIAGNOSTICS See above for pathology ASSESSMENT / PLAN DIAGNOSIS/PLAN: #1 Adenoma Parotid Pleomorphic It was my pleasure to see Ms. Thomas today. She is healing well postoperatively. I discussed with her risks and warning signs symptoms the look for. We discussed the potential for Velasco's syndrome. Sheshares that she does have some 1st bite syndrome but is not particularly bothersome to her at this time it does get better throughout the meal. I am hopeful that this will dissipate but if not I have asked her to reach out to us. We discussed scar management with hydration with Vaseline. Our plan will be as follows: Follow up as needed documented in this encounter Plan of Treatment Not on filedocumented as of this encounter Visit Diagnoses Diagnosis Adenoma Parotid Pleomorphic - Primary documented in this encounter
--- OUTSIDE RECORDS SUMMARY | 2022-03-07 11:17 | XMS_ITS | Encounter Summary ---
:1950 Author Organization [facility] Address [address] [place] [address] Care Team Providers Name Role Phone Unavailable Primary Care Provider Unavailable Encounter Details Date Type Department Care Team Description 01/03/2022 Surgery [facility] OR Tori Arredondo PAROTIDECTOMY [address] [facility] Humberto Cartwright SUPERFICIAL. [place], [place] [address] [facility] [address] [place], [place] [phone] (Wo rk) Social History Tobacco Use Types Packs/Day Years [...] or relatives? How often do you attend quaker or Not asked lutheran services? Do you belong to any clubs or Yes 12/25/2021 organizations such as quaker groups, unions, fraternal or athletic groups, or school groups? How [...] place to sleep or slept in a prison (including now)? Education Answer Date Recorded What is the highest level of school Associate degree: amador herrera, 12/25/2021 you have completed or the highest technical, or vocational kimberly lyons degree you have received? Sex Assigned at Date Recorded Female 12/25/2021 1:18 PM CDT documented as of this encounter Last Filed Vital Signs Vital Sign Reading Time Taken Comments Blood Pressure 136/78 01/03/2022 12:45 PM CDT Pulse 57 01/03/2022 12:50 PM CDT Temperature 36.6 ??C (97.9 ??F) 01/03/2022 11:25 AM CDT Respiratory Rate 15 01/03/2022 12:50 PM CDT Oxygen Saturation 92% 01/03/2022 12:50 PM CDT Inhaled Oxygen Concentration - - Weight 81.9 kg (180 lb 8.9 oz) 01/03/2022 6:54 AM CDT Height 165.1 cm (5' 5) 01/03/2022 6:54 AM CDT Body Mass Index 30.05 01/03/2022 6:54 AM CDT documented in this encounter Discharge Summaries Citlalli Corley M.D. - 01/03/2022 1:59 PM CDT DISCHARGE SUMMARY BRIEF OVERVIEW Hospital: [facility] Discharge Provider: Tori Arredondo M.D. No primary care provider on file. Primary Care Provider Phone Number: None Primary Care Provider Fax Number: None Admission Date: 01/03/2022 Discharge Date: 01/03/2022 PRINCIPAL DIAGNOSIS Mass Parotid SECONDARY DIAGNOSES Principal Problem: Mass Parotid Active Problems: Hypertension Essential Primary Hyperlipidemia Resolved Problems: * No resolved hospital problems. * Surgery Information This Encounter Past Procedures (01/04/2021 to Today) Date Procedures Providers Location 01/03/2022 PAROTIDECTOMY SUPERFICIAL., MONITORING FACIAL NERVE. Tori Arredondo M.D.Jesus Song M.D.Citlalli Corley M.D.Santhosh Figueroa M.D. RST ROMB OR DISCHARGE DISPOSITION Home or Self Care [1] OUTPATIENT FOLLOW UP For appointment details refer to your Patient Appointment Guide. TEST RESULTS PENDING AT DISCHARGE Pending Labs Order Current Status Surgical Pathology, Frozen Lab Preliminary result DETAILS OF HOSPITAL STAY REASON FOR ADMISSION Mass Parotid HOSPITAL COURSE Mrs. Thomas is s/p superficial parotidectomy on 01/03/2022. She was able to discharge to home on the day of surgery. CONSULTS ORDERED DURING THIS ADMISSION None CONDITION AT DISCHARGE stable Discharge instructions were provided to the patient and caregiver(s). documented in this encounter Medications at Time of Discharge Medication Sig Dispensed Refills Start Date End Date acetaminophen (TYLENOL) 500 Take 2 tablets 0 12/23 mg tablet (1,000 mg total) by mouth every 6 (six) hours as needed for pain. albuterol 90 mcg/actuation 2 sprays qid prn 0 07/2004 inhaler aspirin 81 mg chewable Take 1 tablet daily 0 05/2009 tablet fluticasone propionate 2 puffs bid prn 0 06/03/19 05 (FLONASE) 50 mcg/actuation nasal spray ibuprofen (ADVIL,MOTRIN) Take 3 tablets (600 0 200 mg tablet mg total) by mouth every 6 (six) hours as needed for pain. Take with food. levalbuterol (XOPENEX) 1.25 Inhale. 0 mg/3 mL nebulizer solution LORazepam (ATIVAN) 0.5 mg TAKE ONE TABLET BY 0 tablet MOUTH EVERY 6-8 HOURS NEEDED FOR ANXIETY. montelukast (SINGULAIR) 10 Take 10 mg by mouth 0 10/01/2021 mg tablet at bedtime. oxyCODONE (ROXICODONE) 5 mg Take 1 tablet (5 mg 10 tablet 0 01/03/2022 immediate release total) by mouth tabletIndications: Acute every 4 (four) hours Pain as needed for severe pain or score 7-10 of 10 Indication: Acute Pain. pantoprazole (PROTONIX) 40 Take 40 mg by mouth 0 12/11/2021 mg EC tablet daily. potassium chloride Take 10 mEq by mouth 0 022 (KLOR-CON M) 10 mEq ER 2 (two) times a day tablet as needed. pravastatin (PRAVACHOL) 20 Take 20 mg by mouth 0 11/21/2021 mg tablet at bedtime. Symbicort 160-4.5 Inhale 2 puffs 2 0 10/22/2021 mcg/actuation inhaler (two) times a day. triamterene-hydroCHLOROthia Take 1 tablet by 0 zide (MAXZIDE-25) 37.5-25 mouth daily. mg per tablet documented as of this encounter Progress Notes Patel Grady, Pharm.D., R.Ph. - 01/03/2022 6:23 AM CDT Images from the original note were not included. Admission Medication History Note Adherence issues: No concerns Medication list source: Patient Medication related information: none noted Prior to Admission Medications Med List Status: Pharmacy Complete Set By: Patel Grady, Pharm.D., R.Ph. at 01/03/2022 6:23 AM Taking? Last Dose Informant Start Date End Date LT albuterol 90 mcg/actuation inhaler -- 02/24/05 -- 2 sprays qid prn aspirin 81 mg chewable tablet -- 05/25/09 -- Take 1 tablet daily fluticasone propionate (FLONASE) 50 mcg/actuation nasal spray -- 06/03/04 -- 2 puffs bid prn levalbuterol (XOPENEX) 1.25 mg/3 mL nebulizer solution -- -- -- Inhale. LORazepam (ATIVAN) 0.5 mg tablet -- 11/22/21 -- TAKE ONE TABLET BY MOUTH EVERY 6-8 HOURS NEEDED FOR ANXIETY. montelukast (SINGULAIR) 10 mg tablet -- 10/01/21 -- Take 10 mg by mouth at bedtime. pantoprazole (PROTONIX) 40 mg EC tablet -- 12/11/21 -- Take 40 mg by mouth daily. potassium chloride (KLOR-CON M) 10 mEq ER tablet -- 12/02/21 -- Take 10 mEq by mouth 2 (two) times a day as needed. pravastatin (PRAVACHOL) 20 mg tablet -- 11/21/21 -- Take 20 mg by mouth at bedtime. Symbicort 160-4.5 mcg/actuation inhaler -- 10/22/21 -- Inhale 2 puffs 2 (two) times a day. triamterene-hydroCHLOROthiazide (MAXZIDE-25) 37.5-25 mg per tablet 01/02/2022 12/17/21 -- Take 1 tablet by mouth daily. documented in this encounter OR Notes Op Note - Tori Arredondo M.D. - 01/03/2022 8:27 AM CDT Pre-op Diagnosis Mass Parotid Post-op Diagnosis Mass Parotid A professional nursing assistant actively participated and was necessary for one or more of the following: opening,exposure and visualization during the case, maintaining hemostasis, wound closure resulting in its safe and expeditious completion. Findings As expected. Complications None Operative Note Narrative Procedure: 1. Left superficial parotidectomy 2. Facial nerve monitoring Operative report: A modified face lift incision with the posterior limb at the hair line was marked out and injected with 1% lidocaine with 1:100,000 epinephrine. A 4 lead facial monitor was used and functional. An incision was made through the skin and subSMAS flaps were elevated to the anterior aspect of the parotid gland. The mass was identified in the Superficial lobe of parotid (includes tail of parotid). The sternocleidomastoid was exposed and the great auricular nerve was identified and preserved. A ESGS 1+2 -superficial parotidectomy was performed. The superficial temporal vessels were not ligated. The parotid duct was identified and was ligated. The main trunk of the facial nerve was identified, and branches of the facial nerve were identified. All branches were preserved. in removal of the lesion, therewas not any concern for violation of the tumor. To achieve complete resection, no additional structures required resection. The tissue was then sent to pathology for evaluation and was consistent with a pleomorphic adenoma completely excised. At the termination of this portion of the procedure, the facial nerve was intact and stimulatable. The wound bed was irrigated and hemostasis was obtained. A 10 flat channel drain was placed exiting posteriorly toward the hair line and secured with a silk suture. The wound was then closed in layered fashion using 4-0 Vicryl and Dermabond. The patient was then turned back over to anesthesia for recovery and extubation. Jamia Arredondo M.D. documented in this encounter Miscellaneous Notes Result Encounter Note - Citlalli Corley M.D. - 01/08/2022 5:55 PM CDT I have reviewed the final pathology report and the identified diagnosis is consistent with the patient's clinical presentation. Result Encounter Note - Citlalli Corley M.D. - 01/08/2022 5:55 PM CDT I shared the patient's final pathology with her. 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 documented in this encounter Plan of Treatment Scheduled Referrals Name Type Priority Associated Order Schedule Diagnoses Otorhinolaryngology Post Op Outpatient Routine Expected: (clinic) Referral 01/17/2022 (Approximate), Expires: 01/03/2025 documented as of this encounter Procedures Procedure Name Priority Date/Time Associated Comments Diagnosis SURGICAL PATHOLOGY, Routine 01/03/2022 10:24 Mass Parotid Resu lts for this FROZEN LAB AM CDT procedure are i n the results section. MONITORING FACIAL 01/03/2022 7:17 AM Mass Parotid NERVE CDT PAROTIDECTOMY 01/03/2022 7:17 AM Mass Parotid SUPERFICIAL CDT ADULT OXYGEN THERAPY Routine 01/03/2022 6:47 AM CDT documented in this encounter Results Surgical Pathology, Frozen Lab (01/03/2022 10:24 AM CDT) Component Value Ref Test Analysis Performed Pathologis t Range Method Time At Signature 01/08/2022 [facility] 1:03 PM CDT Participated in [facility], 01/08/2022 [facility] the [facility] -Pathology 1:03 PM Interpretation Fellow CDT Report Landen Bradford M.D. 01/08/2022 [facility] electronically 1:03 PM signed by CDT I verify that I have examined all relevant slides/materials for the specimen(s) and rendered or confirmed the diagnosis. Frozen A. Parotid gland, left superficial parotidectomy: 01/08/2022 [facility] Intraoperative Pleomorphic adenoma forming a 1.5 x 1.4 x 1.0 cm mas s. ??The 1:03 PM Report surgical margins are negative. ?? A single intraparotid CDT lymph node is benign. Signed by Landen Bradford M.D. 01/03/2022 3:33 PM Gross Description A. Received fresh labeled left superficial parot id is a 01/08/2022 STMA 6.2 x 5.9 x 1.5 cm portion of parotid gland which is inked 1:03 PM and margins are submitted perpendicularly. ??There is a 1.5 CDT x 1.4 x 1 cm palacios-white solid mass that grossly is confined to the gland, abutting the surgical resection margin. Possible intraparenchymal and periglandular lymph nodes are identified. ??Nurse Sexual Assault tissue submitted for frozen and permanent sections. ??Grossed by Milvia Donovan M.D. -Pathology Resident. Block Summary A Left superficial parotid STMA A1 Mass to margin 1:03 PM A2 Mass to margin-frozen CDT A3 Mass A4 Mass-frozen A5 Possible intraparenchemal lymph nodes 1(A1)-frozen A6 Possible intraparenchemal lymph nodes 1(A2)-frozen A7 Mass 2 Interpretation FINAL DIAGNOSIS 01/08/2022 STMA 1:03 PM A. Parotid gland, left superficial parotidectomy: CDT Pleomorphic adenoma forms a circumscribed 1.5 x 1.4 x 1.0 cm mass.. ??Margins are negative for tumor. ??A single periparotid lymph node is benign. Specimen (Source) Anatomical Collection Method Collection Time Re ceived Time Location / / Volume Laterality Tissue (Neck, 01/03/2022 10:24 Left) AM CDT Narrative This result has an attachment that is no t available. Tori Arredondo M.D. LAB SURG PATH ORDERABLES Performing Organization Address City/State/ZIP Code Phon e Number [facility] - [address] [place], [place] [address] [facility] [place] [address] [facility] [address] documented in this encounter Visit Diagnoses Diagnosis Mass Parotid Hypertension Essential Primary Hyperlipidemia Mass Parotid documented in this encounter Admitting Diagnoses Diagnosis Mass Parotid documented in this encounter Administered Medications Inactive Administered Medications - up to 3 most recent administrations Medication Order MAR Action Action Date Dose Rate Site fentaNYL injection 25 mcg Given 01/03/2022 11:44 AM CDT 25 mcg (SUBLIMAZE) 25 mcg, intravenous, Every 2 min PRN, moderate pain or score 4-6 of 10, severe pain or score 7-10 of 10, Starting on Thu01/03/22 at 0646, PACU (only), Up to maximum total dose of 100 mcg lidocaine-EPINEPHrine 1 %-1:100,000 injection Given 01/04/20 8:01 AM CDT 8 mL (XYLOCAINE W/EPI) As needed, Starting on Thu01/03/22 at 0801, Intra-Op metoprolol tablet 12.5 mg (LOPRESSOR) 12.5 mg, oral, Once as needed, if patien t did not take their last scheduled dose of beta edvin prior to arrival, Starting on Thu01/03/22 at 0643, For 1 dose, Pre-Op, Do not give if patient does not take scheduled beta bl ockers, if patient is receiving intravenous vasopressors or inotropes, if he art rate is less than 50 beats per minute, if systolic blood pres sure is less than 90 mmHg or if diastolic blood pressure is less than 40 mmHg, or if patient has an allergy to metoprolol. sodium chloride 0.9 % injection 10 mL 10 mL, intravenous, As needed, line care , Starting on Thu01/03/22 at 0643, Pre-Op, Peripheral Intravenous Catheter and Rapid Infusion Cat heter, prior to blood sampling, post blood transfusion or post blood samplin g sodium chloride 0.9 % injection 3 mL 3 mL, intravenous, As needed, line care, Starting on Thu01/03/22 at 0643, Pre-Op, Prior to and following infusion and betw een multiple consecutive infusions: sodium chloride 0.9 % injection sodium chloride 0.9 % injection 3 mL 3 mL, intravenous, Every 12 hours scheduled, First dos e on Thu01/03/22 at 0900, Pre-Op, Peripheral Intravenous Catheter and Rapid Infu kacie Catheter, when no infusion to maintain patency documented in this encounter Active and Recently Administered Medications Times are shown in CDT. Scheduled Medication Order 01/01/2022 01/02/2022 01/03/2022 acetaminophen tablet 1,000 mg (TYLENOL) (COMPLETED) 0722 (Given - Provider: Dalia Haywood R.N.) 1,000 mg, oral, Once, On Thu01/03/22 at 0730, For 1 dose, Pre-Op acetaminophen tablet 1,000 mg (TYLENOL) (COMPLETED) 1331 (Given - Provider: Vicky Horne RVanessaNVanessa) 1,000 mg, oral, Once, On Thu01/03/22 at 1345, For 1 dose ibuprofen tablet 600 mg (ADVIL,MOTRIN) (COMPLETED) 1331 (Given - Provider: Vicky Horne R.NVanessa) 600 mg, oral, Once, On Thu01/03/22 at 13 45, For 1 dose, Take with food or milk if GI disturbances occur with use. phenylephrine bolus from bag 100 mcg (SABRINA-SYNEPHRINE) 0645 (Due) 100 mcg, intravenous, Once, On Thu01/03/22 at 0645, For 1 dose, Intra-Op sodium chloride 0.9 % injection 3 mL 0900 (Due) 3 mL, intravenous, Every 12 hours schedu led, First dose on Thu01/03/22 at 0900, Pre-Op, Peripheral Intravenous Catheter and Rapid Infusion Catheter, when no infusion to maintain patency vancomycin in NaCl 0.9% IVPB 1,250 mg (COMPLETED) 0800 (Given - Provider: Leonor Mcclelland R.N.)1100 (Anesthesia Volume Adjustment - Provider: Leonor Mcclelland R.N.) 1,250 mg (rounded from 1,228.5 mg = 15 m g/kg ? 81.9 kg), intravenous, at 175 mL/hr, Administer over 90 Minutes, Once, On Thu01/03/22 at 0730, For 1 dose, Pre-Op, Drug Monitoring Program: Pharmacist to adjust medication dosing based on indica tion and drug clearance factors., Indications: Prophylaxis, surgical, surgery (parotidectomy; allergic to cephalosporins) Continuous Medication Order 01/01/2022 01/02/2022 01/03/2022 lactated ringers 1045 (Due) 20 mL/hr, intravenous, Continuous, Start ing on Thu01/03/22 at 1045, PACU & Post-Op lactated ringers 1045 (Due) 20 mL/hr, intravenous, Continuous, Start ing on Thu01/03/22 at 1045, PACU & Post-Op phenylephrine 80 mcg/mL in NaCl 0.9% 250 mL infusion (CANCELED) 0814 (New Bag - Provider: Leonor Mcclelland R.N.)0932 (Rate/Dose Change - Provider: Leonor Mcclelland R.N.)0943 (Rate/Dose Change - Provider: Leonor Mcclelland R.N.)1028 (Rate/Dose Change - Provider: Leonor Mcclelland R.N.) 0-1 mcg/kg/min ? 82 kg (0-61.5 mL/hr), intravenous, Continuous, Starting on Thu01/03/22 at 0645, Intra-Op, 20 mg in 250 mL, Patient Type: Standard, initiate at: Other, Rate: Per Provider, Titrate at: O 1101 (Stoppe d - Provider: Leonor Mcclelland R.N.) ther, Titrate: Per Provider, Goal: Other, Goal: Per Provider PRN Medication Order 01/01/2022 01/02/2022 01/03/2022 fentaNYL injection 25 mcg (SUBLIMAZE) 1144 (Given - Provider: Ying Leigh R.N.) 25 mcg, intravenous, Every 2 min PRN, mo derate pain or score 4-6 of 10, severe pain or score 7-10 of 10, Starting on Thu01/03/22 at 0646, PACU (only), Up to maximum total dose of 100 mcg lidocaine-EPINEPHrine 1 %-1:100,000 injection (XYLOCAINE W/EPI) (CANCELED) 08 (Given - Provider: Jesus Song M.D. - Comment: Injected into left neck) As needed, Starting on Thu01/03/22 at 0801, Intra-Op metoprolol tablet 12.5 mg (LOPRESSOR) 12.5 mg, oral, Once as needed, if patien t did not take their last scheduled dose of beta edvin prior to arrival, Starting on Thu01/03/22 at 0643, For 1 dose, Pre-Op, Do not give if patient does not ta ke scheduled beta blockers, if patient i s receiving intravenous vasopressors or inotropes, if heart rate is less than 50 beats per minute, if systolic blood pressure is less than 90 mmHg or if diastolic blood pressure is less than 40 mmHg, or if patient has an allergy to metoprolol. oxyCODONE IR tablet 5 mg (ROXICODONE) 5 mg, oral, Once as needed, moderate abraham n or score 4-6 of 10, severe pain or score 7-10 of 10, Starting on Thu01/03/22 at 1148, For 1 dose, PACU (only) sodium chloride 0.9 % injection 10 mL 10 mL, intravenous, As needed, line care , Starting on Thu01/03/22 at 0643, Pre- Op, Peripheral Intravenous Catheter and Rapid Infusion Catheter, prior to blood sampling, post blood transfusion or post blood sampling sodium chloride 0.9 % injection 3 mL 3 mL, intravenous, As needed, line care, Starting on Thu01/03/22 at 0643, Pre- Op, Prior to and following infusion and between multiple consecutive infusions: sodium chloride 0.9 % injection documented in this encounter
--- OUTSIDE RECORDS SUMMARY | 2022-03-07 11:17 | XMS_ITS | Encounter Summary ---
:1950 Author Organization [facility] Address [address] [place] [id number] Care Team Providers Name Role Phone Unavailable Primary Care Provider Unavailable Reason for Visit Reason Comments Allergy Testing Outpatient (Routine) - Closed Specialty Diagnoses / Procedures Referred By Contact Refer red To Contact Diagnoses Mass Parotid Tori Arredondo M.D. [facility] Procedures Penicillin Skin Test [address] [place] [phone] Referral ID Status Reason Start Date Expiration Date Visits Requ ested Visits Authorized [id number] Closed 12/31/2021 12/31/2022 1 1 Encounter Details Date Type Department Care Team Description 01/01/2022 Clinical Support Division of Allergic Tori Arredondo M.D. [address] [place] [phone] Mass Parotid Diseases in [place] [address] [place] [phone] [place] [address] [place] [phone] Social History Tobacco Use Types Packs/Day Years [...] or relatives? How often do you attend hindu or Not asked mandaen services? Do you belong to any clubs or Yes 12/25/2021 organizations such as hindu groups, unions, fraternal or athletic groups, or [...] place to sleep or slept in a halfway (including now)? Education Answer Date Recorded What is the highest level of school Associate degree: amador herrera, 12/25/2021 you have completed or the highest technical, or vocational [facility] degree you have received? Sex Assigned at Date Recorded Female 12/25/2021 1:18 PM CDT documented as of this encounter Procedure Notes Genesis Medina, RVanessaN. - 01/01/2022 12:45 PM CDTAssociated Order(s): ALI PENICILLIN SKIN TEST Images from the original note were not included. Penicillin and other antibiotic skin test Flowsheet Row Clinical Support from 01/01/2022 in Division of Allergic Diseases in [place], [place] Penicillin and other antibiotics (Prick) P - Prick control 0 H - Histamine 6mg/ml prick 5x5 Wheal, 10x10 Flare 2 - Diluent without preservative (Prick) 0 3 - Benzylpencilloyl (PrePen) (Major determinant) 0 4 - New Mix Penicillin G (Prick) 0 5 - Alkaline Hydrolysis (Prick) (Minor determinant) 0 Cefazolin ordered? Yes 7 - Cefazolin (Prick) 0 Ampicillin ordered? Yes 8 - Ampicillin (Prick) 0 Penicillin and other antibiotics (ID) 2 - Diluent without preservative (ID) 0 3 - Benzylpencilloyl (PrePen) (ID) (Major determinant) 0 4 - New Mix Penicillin G (ID) 0 5 - Alkaline Hydrolysis (ID) (Minor determinant) 0 7 - Cefazolin (ID) 3.3 mg/ml = 0 [33 mg/ml= 0] 8 - Ampicillin (ID) 0 documented in this encounter Plan of Treatment Not on filedocumented as of this encounter Procedures Procedure Name Priority Date/Time Associated Comments Diagnosis ALI PENICILLIN SKIN Routine 01/01/2022 12:45 PM Mass Parotid R esults for this TEST CDT procedure are i n the results section. documented in this encounter Results Penicillin Skin Test (01/01/2022 12:45 PM CDT) Narrative MMODAL - 01/01/2022 12:45 PM CDT [place] ? 01/01/2022 ??1:24 PM Penicillin and other antibiotic skin norma t ?? Flowsheet Row Clinical Support from 01/01 in Division of Allergic Diseases in [place], [facility] a Penicillin and other antibiotics (Prick) ?? P - Prick control 0 H - Histamine 6mg/ml prick 5x5 Wheal, 10 x10 Flare 2 - Diluent without preservative (Prick) 0 3 - Benzylpencilloyl (PrePen) (Major det erminant) 0 4 - New Mix Penicillin G (Prick) 0 5 - Alkaline Hydrolysis (Prick) (Minor d eterminant) 0 Cefazolin ordered? Yes 7 - Cefazolin (Prick) 0 Ampicillin ordered? Yes 8 - Ampicillin (Prick) 0 Penicillin and other antibiotics (ID) ?? 2 - Diluent without preservative (ID) 0 3 - Benzylpencilloyl (PrePen) (ID) (Roma r determinant) 0 4 - New Mix Penicillin G (ID) 0 5 - Alkaline Hydrolysis (ID) (Minor dete rminant) 0 7 - Cefazolin (ID) 3.3 mg/ml = 0 ??[33 m g/ml= 0] 8 - Ampicillin (ID) 0 Tori Arredondo M.D. PROCEDURE/MINOR SURGICAL ORD ERABLES Performing Organization Address City/State/ZIP Code Phon e Number MMOD[place] NA documented in this encounter Visit Diagnoses Diagnosis Mass Parotid documented in this encounter
--- OUTSIDE RECORDS SUMMARY | 2022-03-07 11:17 | XMS_ITS | Encounter Summary ---
:1950 Author Organization [facility] Address [address] [place] [address] Care Team Providers Name Role Phone Unavailable Primary Care Provider Unavailable Reason for Visit Reason Comments OSM Encounter Details Date Type Department Care Team Description 12/23/2021 Clinical Department of ASAD Arredondo Otorhinolaryngology in [place], [place] [address] [facility] [address] [place] [address] [place], [place] [phone] Social History Tobacco Use Types Packs/Day Years Used Date Smoking Tobacco: Never Assessed Alcohol Habits Answer Date Recorded How often [...] or relatives? How often do you attend episcopal or Not asked scientologist services? Do you belong to any clubs or Yes 12/25/2021 organizations such as episcopal groups, unions, fraternal or athletic groups, or [...] place to sleep or slept in a [place] health care facility (including now)? Sex Assigned at Date Recorded Female 12/25/2021 1:18 PM CDT documented as of this encounter Miscellaneous Notes Telephone Encounter - Radha Farnsworth - 12/25/2021 4:12 PM CDT Imaging received and viewable in userfox. Report uploaded to chart and viewable in Document Viewer dated 12/25/2021. Radha Telephone Encounter - Radha Farnsworth - 12/25/2021 8:47 AM CDT Faxed request to [facility] at [phone]. Requested CT imaging from 10/2021. Thanks Radha Telephone Encounter - Zaida Arce - 12/23/2021 4:17 PM CDT Provider patient is scheduled to see: Dr. Arredodno Appointment Date: 12/31/2021 Primary Indication:Parotid Mass 1) Has the Patient had Imaging Completed? Yes If yes, what types of imaging? Select all that apply: CT What are the approximate dates that this imaging was completed? 10/2021 Does the patient/referrer know what facility? Yes If yes, where was the imaging completed (at minimum, the City and State)? [facility] Does the patient/referrer know the phone number? Yes If yes, please provide: [phone] 2) Has the patient had any additional testing/procedures completed, such as Pathology Slides?? Unknown If yes, Select all that apply: None What are the approximate dates that this testing was completed? na Does the patient/referrer know what facility? No If yes, where was the testing completed (at minimum, the City and State)? na Does the patient/referrer know the phone number? Unknown If yes, please provide:NA 3) Did the Providers triage response indicated that Pathology Slides are required for review? No Only CT scan Request for OSM was sent to the following Facilities([place] include the fax number): Had not sent a request As OSM is received, please make sure to note this communication so that everyone is aware of anything that we might still be missing. documented in this encounter Plan of Treatment Not on filedocumented as of this encounter Visit Diagnoses Not on filedocumented in this encounter
--- OUTSIDE RECORDS SUMMARY | 2022-03-07 11:17 | XMS_ITS | Encounter Summary ---
:1950 Author Organization [facility] Address [address] [place] [address] Care Team Providers Name Role Phone Unavailable Primary Care Provider Unavailable Reason for Visit Reason Comments Pre-visit Intake Encounter Details Date Type Department Care Team Description 12/26/2021 Clinical Communication Visit Review in Pr e-visit Intake [address] [id number] Social History Tobacco Use Types Packs/Day Years Used Date Smoking Tobacco: Former Cigarettes Quit : 1984 Smokeless Tobacco: Never Tobacco Cessation: Counseling Given: Not Answered Alcohol Habits Answer Date Recorded How often [...] or relatives? How often do you attend adventist or Not asked shinto services? Do you belong to any clubs or Yes 12/25/2021 organizations such as adventist groups, unions, fraternal or athletic groups, or [...] place to sleep or slept in a care home (including now)? Education Answer Date Recorded What is the highest level of school Associate degree: amador herrera, 12/25/2021 you have completed or the highest technical, or vocational kimberly lyons degree you have received? Sex Assigned at Date Recorded Female 12/25/2021 1:18 PM CDT documented as of this encounter Plan of Treatment Not on filedocumented as of this encounter Visit Diagnoses Not on filedocumented in this encounter
--- OUTSIDE RECORDS SUMMARY | 2022-03-07 11:17 | XMS_ITS | Encounter Summary ---
:1950 Author Organization [facility] Address [address] [place] [address] Care Team Providers Name Role Phone Unavailable Primary Care Provider Unavailable Reason for Referral Outpatient (Routine) - Closed Specialty Diagnoses / Procedures Referred By Contact Refer red To Contact Otorhinolaryngology Citlalli Corley M.D. [address] [place] [address] Referral ID Status Reason Start Date Expiration Date Visits Requ ested Visits Authorized [id number] Closed 01/03/2022 01/03/2023 1 1 Encounter Details Date Type Department Care Team Description 01/03/2022 Hospital Encounter [facility] OR Braeden Arredondo Parotid (Primary Dx); [address] [place] [address] Tori Cartwright M.D. Mass Parotid [place], [place] [address] [place] [phone] [place], [place] [phone] Social History Tobacco Use Types Packs/Day Years [...] or relatives? How often do you attend mosque or Not asked baptist services? Do you belong to any clubs or Yes 12/25/2021 organizations such as mosque groups, unions, fraternal or athletic groups, or [...] place to sleep or slept in a [facility] (including now)? Education Answer Date Recorded What is the highest level of school Associate degree: amador herrera, 12/25/2021 you have completed or the highest technical, or vocational p eloy degree you have received? Sex Assigned at Date Recorded Female 12/25/2021 1:18 PM CDT documented as of this encounter Last Filed Vital Signs Vital Sign Reading Time Taken Comments Blood Pressure 137/75 01/03/2022 1:40 PM CDT Pulse 60 01/03/2022 1:40 PM CDT Temperature 36.5 ??C (97.7 ??F) 01/03/2022 1:40 PM CDT Respiratory Rate 15 01/03/2022 12:50 PM CDT Oxygen Saturation 98% 01/03/2022 1:40 PM CDT Inhaled Oxygen Concentration - - Weight 81.9 kg (180 lb 8.9 oz) 01/03/2022 6:54 AM CDT Height 165.1 cm (5' 5) 01/03/2022 6:54 AM CDT Body Mass Index 30.05 01/03/2022 6:54 AM CDT documented in this encounter Discharge Summaries Citlalli Corley M.D. - 01/03/2022 1:59 PM CDT DISCHARGE SUMMARY BRIEF OVERVIEW Hospital: [facility] Discharge Provider: Tori Arredondo M.D. No primary [...] PAROTIDECTOMY SUPERFICIAL., MONITORING FACIAL NERVE. Tori Arredondo M.D.Schmidtman, Daniel C, M.D.Wallerius, Katherine P, M.D.Goates, Andrew J, M.D. [facility] OR DISCHARGE DISPOSITION Home [...] Mass Parotid Post-op Diagnosis Mass Parotid A commercial assistant actively participated and was necessary for [...] 01/08/2022 [facility] 1:03 PM CDT Participated in Page Rip, 01/08/2022 [facility] -Pathology 1:03 PM Interpretation Fellow CDT Report [...] intraparenchymal and periglandular lymph nodes are identified. ??Feeder Tender tissue submitted for frozen and permanent sections. [...] Organization Address City/State/ZIP Code Phon e Number [facility] - [address] [place], [place] [address] [place] [address] [facility] [address] documented in this encounter Visit Diagnoses Diagnosis Mass Parotid Hypertension Essential Primary Hyperlipidemia documented in this encounter Admitting Diagnoses Diagnosis Mass Parotid documented in this encounter Administered Medications Inactive Administered Medications - up to 3 most recent administrations Medication Order MAR Action Action Date Dose Rate Site acetaminophen tablet 1,000 mg Given 01/03/2022 7:22 AM CDT 1,000 mg (TYLENOL) 1,000 mg, oral, Once, On Thu01/03/22 at 0730, For 1 dose, Pre-Op acetaminophen tablet 1,000 mg (TYLENOL) Given 01/03/2022 1:31 PM CDT 1,000 mg 1,000 mg, oral, Once, On Thu01/03/22 at 1345, For 1 dose fentaNYL injection 25 mcg (SUBLIMAZE) Given 01/03/2022 11:44 AM CDT 25 mcg 25 mcg, intravenous, Every 2 min PRN, moderate pain or score 4-6 of 10, severe pain or score 7-10 of 10, Starting on Thu01/03/22 at 0646, PACU (only), Up to maximum total dose of 100 mcg ibuprofen tablet 600 mg (ADVIL,MOTRIN) Given 01/03/2022 1:31 PM CDT 600 mg 600 mg, oral, Once, On Thu01/03/22 at 1345, For 1 dose, Take with food or milk if GI disturbances occur with use. metoprolol tablet 12.5 mg (LOPRESSOR) 12.5 mg, [...] (COMPLETED) 0722 (Given - Provider: Dalia Haywood RLinnea) 1,000 mg, oral, Once, On Thu01/03/22 at 0730, For 1 dose, Pre-Op acetaminophen tablet 1,000 mg (TYLENOL) (COMPLETED) 1331 (Given - Provider: Vicky Horne R.N.) 1,000 mg, oral, Once, On Thu01/03/22 at 1345, For 1 dose ibuprofen tablet 600 mg (ADVIL,MOTRIN) (COMPLETED) 1331 (Given - Provider: Vicky Horne R.N.) 600 mg, oral, Once, On Thu01/03/22 at [...] lidocaine-EPINEPHrine 1 %-1:100,000 injection (XYLOCAINE W/EPI) (CANCELED) 0801 (Given - Provider: Jesus Song M.D. - [...]
--- OUTSIDE RECORDS SUMMARY | 2022-03-07 11:17 | XMS_ITS | Encounter Summary ---
:1950 Author Organization [facility] Address [address] [place] [address] Care Team Providers Name Role Phone Unavailable Primary Care Provider Unavailable Encounter Details Date Type Department Care Team Description 12/31/2021 Hospital Encounter Department of Tori Arredondo Laboratory Medicine and Humberto Cartwright Pathology, [address] [phone] [place] [address] [place] [address] Social History Tobacco Use Types Packs/Day Years Used Date Smoking Tobacco: Former Cigarettes Quit : 1984 Smokeless Tobacco: Never Alcohol Habits Answer Date Recorded How often [...] or relatives? How often do you attend confucianism or Not asked samaritan services? Do you belong to any clubs or Yes 12/25/2021 organizations such as confucianism groups, unions, fraternal or athletic groups, or [...] PM CDT documented as of this encounter Medications at Time of Discharge [...] per tablet documented as of this encounter Plan of Treatment Not on filedocumented as of this encounter Procedures Procedure Name Priority Date/Time Associated Diagnosis Comme nts CBC WITH Routine 12/31/2021 11:24 AM Mass Parotid Results for this DIFFERENTIAL, B CDT procedure ar e in the results section. BASIC METABOLIC Routine 12/31/2021 11:24 AM Mass Parotid Resul ts for this PANEL, S/P CDT procedure are i n the results section. documented in this encounter Results CBC with Differential, Blood (12/31/2021 11:24 AM CDT) P athologist Signature Hemoglobin 13.5 11.6 - 12/31/2021 DTL 15.0 g/dL 12:08 PM CDT Hematocrit 41.9 35.5 - 12/31/2021 DTL 44.9 % 12:08 PM CDT Erythrocytes 4.75 3.92 - 12/31/2021 DTL 5.13 12:08 PM CDT x10(12)/L MCV 88.2 78.2 - 12/31/2021 DTL 97.9 fL 12:08 PM CDT RBC Distrib Width 12.4 12.2 - 12/31/2021 DTL 16.1 % 12:08 PM CDT Platelet Count 290 157 - 371 12/31/2021 DTL x10(9)/L 12:08 PM CDT Leukocytes 7.5 3.4 - 9.6 12/31/2021 DTL x10(9)/L 12:08 PM CDT Neutrophils 4.31 1.56 - 12/31/2021 DTL 6.45 12:08 PM CDT x10(9)/L Lymphocytes 2.42 0.95 - 12/31/2021 DTL 3.07 12:08 PM CDT x10(9)/L Monocytes 0.51 0.26 - 12/31/2021 DTL 0.81 12:08 PM CDT x10(9)/L Eosinophils 0.16 0.03 - 12/31/2021 DTL 0.48 12:08 PM CDT x10(9)/L Basophils 0.05 0.01 - 12/31/2021 DTL 0.08 12:08 PM CDT x10(9)/L Specimen Anatomical Collection Method Collection Time Receive d Time (Source) Location / / Volume Laterality Blood (Blood, 12/31/2021 11:24 12/31/2021 Venous) AM CDT 11:58 AM CDT Tori Arredondo M.D. LAB BLOOD ADD-ON Performing Organization Address City/State/ZIP Code Phon e Number [facility] - [address] [place] [address] [facility] [place] [address] [facility] [address] [facility] Basic Metabolic Panel (12/31/2021 11:24 AM CDT) P athologist Signature Potassium, S 3.7 3.6 - 5.2 12/31/2021 DTL mmol/L 12:28 PM CDT Sodium, S 141 135 - 145 12/31/2021 DTL mmol/L 12:28 PM CDT Chloride, S 102 98 - 107 12/31/2021 DTL mmol/L 12:28 PM CDT Bicarbonate, S 27 22 - 29 12/31/2021 DTL mmol/L 12:28 PM CDT Anion Gap 12 7 - 15 12/31/2021 DTL 12:28 PM CDT BUN (Blood Urea 10 6 - 21 12/31/2021 DTL Nitrogen), S mg/dL 12:28 PM CDT Creatinine 0.78 0.59 - 12/31/2021 DTL 1.04 mg/dL 12:28 PM CDT eGFR-Non 77 >=60 12/31/2021 DTL Black/ mL/min/BSA 12:28 PM CDT Pakistani Comment: ----ADDITIONAL INFORMATION---- Estimated GFR calculated using the 2009 CKD_EPI creatinine equation. eGFR-Black/ 89 >=60 mL/min/BSA 2021 12:28 PM CDT DTL Comment: ----ADDITIONAL INFORMATION---- Estimated GFR calculated using the 2009 CKD_EPI creatinine equation. Calcium, Total, S 9.4 8.8 - 10.2 mg/dL 12/31/2021 12:2 8 PM CDT DTL Glucose, S 99 70 - 140 mg/dL 12/31/2021 12:28 PM CDT DTL Specimen Anatomical Collection Method Collection Time Receive d Time (Source) Location / / Volume Laterality Blood (Blood, 12/31/2021 11:24 12/31/2021 Venous) AM CDT 12:05 PM CDT Tori Arredondo M.D. LAB BLOOD ADD-ON Performing Organization Address City/State/ZIP Code Phon e Number [facility] - [address] [place], [place] [address] [facility] [place] [address] [facility] [address] documented in this encounter Visit Diagnoses Diagnosis Mass Parotid documented in this encounter Additional Health Concerns Infection Onset Date Last Indicated Resolved Time COVID19 Pending 12/31/2021 12/31/2021 12/31/2021 5:56 PM CDT documented as of this encounter
--- OUTSIDE RECORDS SUMMARY | 2022-03-07 11:17 | XMS_ITS | Encounter Summary ---
:1950 Author Organization [facility] Address [address] [place] [address] Care Team Providers Name Role Phone Unavailable Primary Care Provider Unavailable Encounter Details Date Type Department Care Team Description 12/31/2021 Ancillary Procedure Department of Otorhinolaryngology Social History Tobacco Use Types Packs/Day Years [...] or relatives? How often do you attend yazidi or Not asked taoist services? Do you belong to any clubs or Yes 12/25/2021 organizations such as yazidi groups, unions, fraternal or athletic groups, or [...] highest level of school Associate degree: amador davidrene, 12/25/2021 you have completed or the highest technical, or vocational p eloy degree you have received? Sex Assigned at Date Recorded Female 12/25/2021 1:18 PM CDT documented as of this encounter Plan of Treatment Not on filedocumented as of this encounter Procedures Procedure Name Priority Date/Time Associated Comments Diagnosis OTORHINOLARYNGOLOGY IMAGE Routine 12/31/2021 9:15 Results for this EXAM AM CDT procedure are i n the results section. documented in this encounter Results Direct Laryngoscopy-Otorhinolaryngology Image Exam (12/31/2021 9:15 AM CDT) Specimen (Source) Anatomical Collection Method Collection Time Re ceived Time Location / / Volume Laterality 12/31/2021 9:12 AM CDT Narrative [facility] - 12/31/2021 11:05 AM CDT This order has been created and auto-finalized to support the import of images acquired without order. The clini oscar documentation to support these images can be found on the encounter gary t produced images. Provider Not In System IMG NON RAD IMAGING PROCEDUR ES Performing Organization Address City/State/ZIP Code Phon e Number [facility] NA documented in this encounter Visit Diagnoses Not on filedocumented in this encounter
--- OUTSIDE RECORDS SUMMARY | 2022-03-07 11:17 | XMS_ITS | Encounter Summary ---
:1950 Author Organization [facility] Address [address] [place] [id number] Care Team Providers Name Role Phone Unavailable Primary Care Provider Unavailable Reason for Visit Outpatient (Routine) - Closed Specialty Diagnoses / Procedures Referred By Contact Refer red To Contact Allergy and Immunology Diagnoses Mass Parotid Tori Arredondo, [facility] [address] [place] [id number] Referral ID Status Reason Start Date Expiration Date Visits Requ ested Visits Authorized [id number] Closed 12/31/2021 12/31/2022 1 1 Encounter Details Date Type Department Care Team Description 01/01/2022 Comprehensive Visit Division of Nash [facility]apata Aller gy Drug Initial (Primary Dx); Allergic Diseases [facility] Mass Parotid; in [place] [address] [address] [facility] Allergy Food Initial [place], [place] [address] [place] [id number] [place], [place] [phone] (Work) [phone] Social History Tobacco Use Types Packs/Day Years [...] or relatives? How often do you attend jewish or Not asked methodist services? Do you belong to any clubs or Yes 12/25/2021 organizations such as jewish groups, unions, fraWirescan or athletic groups, or school groups? How [...] place to sleep or slept in a correction (including now)? Education Answer Date Recorded What is the highest level of school Associate degree: amador herrera, 12/25/2021 you have completed or the highest technical, or vocational p rogram degree you have received? Sex Assigned at Date Recorded Female 12/25/2021 1:18 PM CDT documented as of this encounter Consult Notes Nash Zapata M.D. - 01/01/2022 1:30 PM CDT SUBJECTIVE CHIEF COMPLAINT / REASON FOR VISIT Referred by: Tori Arredondo M.D. Gypsy is a 71 y.o. female who I am seeing at the request of Tori Arredondo M.D. who presentsfor evaluation of penicillin unspecified allergy. HISTORY OF PRESENT ILLNESS #1 Penicillin allergy The patient reports an allergy to penicillin unspecified. The patient took the antibiotic by mouth. The reaction occurred 40 years ago. The symptoms of the allergic reaction are hives and no other symptoms consistent with a more severe drug hypersensitivity reaction such as but not limited to DRESS, SJS, AGEP etc. . The symptoms started (time) unknown after consumption/administration of antibiotic. The symptoms resolved (time) > 48 hours. The allergic reaction treatment included diphenhydramine. The patient was evaluated or treated at home. The patient has not taken penicillin unspecified since the original reaction. Cephalosporin use history: The patient does have a history of a cephalosporin allergy. cephalosporin unspecified shortness of breath, wheezing, and she felt that her throat was being choked from the inside. However she did not experience any hives. She does not know what she had taken inregards to the cephalosporin. She had been in the emergency room for an asthma flare and was given galina of some type of cephalosporin. We have reviewed outside records and I could not find it. The patient has not taken a cephalosporin since the penicillin reaction. Past Medical History: Diagnosis Date Anxiety Generalized Disorder 05/25/1987 Asthma NOS 1950 Cataract 10/24/2019 Diabetes Mellitus NOS 05/25/2019 Gallbladder Disorder 10/23/2000 Gastroesophageal Reflux Disease NOS 05/25/2014 Hyperlipidemia 05/25/2014 Hypertension NOS 05/25/2014 Liver Disease 05/25/2014 Migraine Headache 05/25/1987 Osteopenia 5 Pneumonia 05/25/1987 Polyp Colon 05/25/2017 Allergies Allergen Reactions Mold Extracts Anaphylaxis Mold, mildew, smuts Triamcinolone Anaphylaxis and Other (see comments) Cephalosporins Anaphylaxis, Hives, Shortness of breath and Itching Erythromycin Hives and Itching Lovastatin Hives, Itching and Rash Penicillin V Hives, Shortness of breath and Itching Psyllium Hives, Itching and Rash Current Outpatient Medications on File Prior to Visit Medication Sig Dispense Refill albuterol 90 mcg/actuation inhaler 2 sprays qid prn aspirin 81 mg chewable tablet Take 1 tablet daily fluticasone propionate (FLONASE) 50 mcg/actuation nasal spray 2 puffs bid prn levalbuterol (XOPENEX) 1.25 mg/3 mL nebulizer solution Inhale. LORazepam (ATIVAN) 0.5 mg tablet TAKE ONE TABLET BY MOUTH EVERY 6-8 HOURS NEEDED FOR ANXIETY. montelukast (SINGULAIR) 10 mg tablet Take 10 mg by mouth at bedtime. pantoprazole (PROTONIX) 40 mg EC tablet Take 40 mg by mouth daily. potassium chloride (KLOR-CON M) 10 mEq ER tablet Take 10 mEq by mouth 2 (two) times a day as needed. pravastatin (PRAVACHOL) 20 mg tablet Take 20 mg by mouth at bedtime. Symbicort 160-4.5 mcg/actuation inhaler Inhale 2 puffs 2 (two) times a day. triamterene-hydroCHLOROthiazide (MAXZIDE-25) 37.5-25 mg per tablet Take 1 tablet by mouth daily. No current facility-administered medications on file prior to visit. OBJECTIVE There were no vitals taken for this visit. PHYSICAL EXAM Physical Exam ASSESSMENT / PLAN Diagnoses and all orders for this visit: Allergy Drug Initial Mass Parotid - Allergy and Immunology - Penicillin allergy consult (clinic) Allergy Food Initial #1 Personal history of penicillin allergy Penicillin skin test interpretations: The patient's penicillin skin test to the major and minor determinants was negative. The patient's skin test to amoxicillin was negative. The patient's chances of developing an IgE mediated reaction topenicillin is less than 5 percent, which is close to the general population. Our penicillin skin test does not predict for non IgE mediated adverse reactions to penicillins. Discussions: I discussed the penicillin skin test findings with the patient. We discussed the role of an oral challenge to penicillins after negative penicillin skin tests. We discussed the factors to consider in the decision to proceed or defer an oral challenge including the type of allergic reaction to penicillin, history of other drug allergies, co-morbidities such as asthma, time from the original reaction to penicillin, and the clinical need for penicillin currently and in the future. We also discussed therisks, benefits and alternatives to doing an oral challenge to penicillins. After an extensive and robust discussion with patient's questions answered regarding proceeding or deferring an oral challenge to penicillin, we came up with our decision as documented below. The patient's documentation and history does report an adverse reaction to cephalosporins. We discussed that we do not have a skin test that has been validated to completely rule out a cephalosporin allergy. It is encouraging that the patient's cefazolin skin test is negative. I think it important part of the history will be trying to figure out which type of cephalosporins she had received. Moreover the patient has a history of asthma which would predispose her to a higher risk of complications during an oral challenge. In summary, the patient and I discussed their unique clinical situation and the best clinical decision regarding the penicillin allergy and in addition, the role and use of cephalosporins currently andin the future. After all these discussions and questions answered, we came up with the following agreed recommendations. Recommendations: 1. Regarding the oral challenge to penicillins, the patient is willing to take a penicillin. Howevernay would like to take the 1st dose under medical supervision including her primary care provider . 2. May use penicillins BUT avoid cephalosporins 3. She will try to obtain outside records to determine which type of cephalosporin she had received.Until then she would like to avoid. #2 Question food allergies The patient also ask questions in regards to possible food allergies. She reports sometimes eating causing her to have some itchiness of the hands and possible rash. This occurs approximately 3-5 hoursafter consumption. She was not able to identify specific cause of these rashes including identifyingspecific food. Recommendation: 1. I have asked her to keep a food diary. She will record all the food consumption from the point ofher reaction and 6 hours before. I think this will help us determine further whether skin testing orspecific IgE testing to certain foods will be beneficial. I discussed the recommendations and answered all the questions to the best of my ability and the patient expressed understanding and agreement with our plan. Gypsy expressed their understanding and agreement with the plan. I answered all their questions tothe best of my abilities. Total time spent on this patient's case including face to face time but not including time spent on the diagnostic procedure is 25 minutes. The time spent with patient included counseling and discussion and/or coordination of care as described above. Patient Education Ready to learn, no apparent learning barriers were identified; learning preferences include listening. Explained diagnosis and treatment plan; patient expressed understanding of the content. documented in this encounter Plan of Treatment Not on filedocumented as of this encounter Visit Diagnoses Diagnosis Allergy Drug Initial - Primary Mass Parotid Allergy Food Initial documented in this encounter
--- OUTSIDE RECORDS SUMMARY | 2022-03-07 11:17 | XMS_ITS | Encounter Summary ---
:1950 Author Organization [facility] Address [address] [place] [address] Care Team Providers Name Role Phone Unavailable Primary Care Provider Unavailable Reason for Referral Outpatient (Routine) - Closed Specialty Diagnoses / Procedures Referred By Contact Refer red To Contact Diagnoses Tori Trujillo M.D. [facility] Procedures Penicillin Skin Test [address] [place], [place] [phone] Referral ID Status Reason Start Date Expiration Date Visits Requ ested Visits Authorized [id number] Closed 12/31/2021 12/31/2022 1 1 Outpatient (Routine) - Closed Specialty Diagnoses / Procedures Referred By Contact Refer red To Contact Allergy and Immunology Diagnoses Mass Parotid Tori Arredondo [place] M.D. [address] [place] [address] Referral ID Status Reason Start Date Expiration Date Visits Requ ested Visits Authorized [id number] Closed 12/31/2021 12/31/2022 1 1 Outpatient (Routine) - Closed Specialty Diagnoses / Procedures Referred By Contact Refer red To Contact Anesthesiology Diagnoses [place] Parotid Tori Arredondo M.D. [facility] [address] [place] [address] Referral ID Status Reason Start Date Expiration Date Visits Requ ested Visits Authorized [id number] Closed 12/31/2021 12/31/2022 1 1 Outpatient (Routine) - Closed Specialty Diagnoses / Procedures Referred By Contact Refer red To Contact Diagnoses Tori Trujillo M.D. [facility] Procedures ECG 12 Lead [address] [place] [address] Referral ID Status Reason Start Date Expiration Date Visits Requ ested Visits Authorized [id number] Closed 12/31/2021 12/31/2022 1 1 Reason for Visit Outpatient (Routine) - Closed Specialty Diagnoses / Procedures Referred By Contact Refer red To Contact Otorhinolaryngology Diagnoses Krishna Tolentino [facility] [address] [place] [address] Referral ID Status Reason Start Date Expiration Date Visits Requ ested Visits Authorized [id number] Closed 12/17/2021 12/17/2022 1 1 Encounter Details Date Type Department Care Team Description 12/31/2021 Comprehensive Visit Department of Bra[place] Arredondo Otorhinolaryngology in Tori Cartwright [place], [place] [address] [facility] [address] [place] [address] [place], [place] [phone] Social History Tobacco Use Types Packs/Day Years [...] or relatives? How often do you attend latter day or Not asked gnosticist services? Do you belong to any clubs or Yes 12/25/2021 organizations such as latter day groups, unions, fraternal or athletic groups, or [...] documented as of this encounter Consult Notes Citlalli Corley M.D. - 12/31/2021 8:45 AM CDT REF PROVIDER: The patient sought evaluation today by self-referral. The patient was referred for evaluation today by their local shafting worker. SUBJECTIVE CHIEF COMPLAINT/PURPOSE OF VISIT: Left parotid mass HISTORY OF PRESENT ILLNESS: Ms. Thomas is a 71 y.o. year old female with history of asthma, HTN, HLD, who presents for evaluation of a left parotid mass. On November 14, 2021 she was acutely short of breath and was evaluated in herlocal ED. According to the patient, the differential included acute asthma exacerbation versus possible upper airway edema. She improved from a respiratory perspective and is currently at her baseline.Her local ENT performed a mirror exam that, per report, demonstrated evidence of reflux. He started her on Protonix daily with Pepcid before bedtime as well as lifestyle changes. She has an EGD scheduled with local GI on January 10, 2022. During her previous evaluation in the ED for the shortness of breath, she received a CT neck. This demonstrated a 1.4 cm nodule in the left superficial parotid gland. She says she has felt a bump belowher left ear for several years but has not thought anything of it. It has never been painful, it hasnot changed or grown in size, no overlying skin changes. She denies any facial asymmetry or numbness. RISK FACTORS: - Denies prior head or neck cancer. - Denies a history of radiation treatment. - Past smoker: smoked 0.2 packs per day for 16 years, quit 1984. - Denies a history of alcohol use - Denies a history of marijuna use - No personal skin cancer history - Immunosuppression: None - Family history: Negative - Other risk factors: None ROS: The following systems were negative: Constitutional, Skin, Neurologic, Eyes, ENT, CV, Respiratory, GI, , Musculoskeletal, Hematologic, Psych ANTICOAGULATION: Aspirin 81 mg DIAGNOSTICS REVIEW: CT neck 11/14/2021: 1.4 cm nodule in the left superficial parotid gland CURRENT MEDICATIONS: Reviewed and updated in the EMR. ALLERGIES: Allergies Allergen Reactions Mold Extracts Anaphylaxis Mold, mildew, smuts Triamcinolone Anaphylaxis and Other (see comments) Cephalosporins Anaphylaxis, Hives, Shortness of breath and Itching Erythromycin Hives and Itching Lovastatin Hives, Itching and Rash Penicillin V Hives, Shortness of breath and Itching Psyllium Hives, Itching and Rash . PAST MEDICAL HISTORY: No past medical history on file. SURGICAL HISTORY: No past surgical history on file. SOCIAL HISTORY: Social History Socioeconomic History Marital status: Spouse name: Not on file Number of children: Not on file Years of education: Not on file Highest education level: Associate degree: occupational, technical, or vocational program Occupational History Not on file Tobacco Use Smoking status: Former Types: Cigarettes Quit date: 1984 Years since quittin.6 Smokeless tobacco: Never Vaping Use Vaping Use: never used Substance and Sexual Activity Alcohol use: Not on file Drug use: Not on file Sexual activity: Not on file Other Topics Concern Not on file Social History Narrative Not on file Social Determinants of Health Financial Resource Strain: Low Risk Difficulty of Paying Living Expenses: Not hard at all Food Insecurity: No Food Insecurity Worried About Running Out of Food in the Last Year: Never true Ran Out of Food in the Last Year: Never true Transportation Needs: No Transportation Needs Lack of Transportation (Medical): No Lack of Transportation (Non-Medical): No Physical Activity: Unknown Days of Exercise per Week: 0 days Minutes of Exercise per Session: Not on file Stress: No Stress Concern Present Feeling of Stress : Not at all Social Connections: Unknown Frequency of Communication with Friends and Family: More than three times a week Frequency of Social Gatherings with Friends and Family: Once a week Attends Muslim Services: Not on file Active Member of Clubs or Organizations: Yes Attends Club or Organization Meetings: More than 4 times per year Marital Status: Intimate Partner Violence: Not At Risk Fear of Current or Ex-Partner: No Emotionally Abused: No Physically Abused: No Sexually Abused: No Housing Stability: Low Risk Unable to Pay for Housing in the Last Year: No Number of Places Lived in the Last Year: 1 Unstable Housing in the Last Year: No FAMILY HISTORY: No family history on file. OBJECTIVE PHYSICAL EXAM: General: 71 y.o. year old female, in no acute distress. Ambulates on and off the exam table without difficulty. Eyes: EOMI. Ears: Pinna normal, canal patent, TM intact and middle ear space well aerated. Hearing aids bilaterally. Neuro: I/ bilaterally, sensation intact to light touch on the bilaterally. Oral Cavity: no masses or ulcers. Dentition is intact. Tongue protrusion is normal. OP: No masses or ulcers. Bradner tonsilsare present and are 1+. Parotid/Neck: There is a 1 cm mobile, soft, nontender mass in the left tail of parotid. Skin: No rashes or lesions. Nose: Patent, mucosa is moist, no masses, lesions or mucopurulence noted. ULTRA SOUND TECHNICIAN: No masses. Torus tubarius normal. Symmetric fossa of Rosenmuller. PROCEDURE NOTE Procedure: Flexible laryngoscopy, fiberoptic, diagnostic Details: After topical decongestion and anesthesia with lidocaine and afrin, the flexible laryngoscope was inserted on the right side. The nasal cavity, nasopharynx, oropharynx, and hypopharynx were evaluated and normal. The patient tolerated the procedure well. ASSESSMENT / PLAN DIAGNOSIS/PLAN: #1 Mass Parotid It was my pleasure to see Mrs. Thomas and her today. On recent CT neck (11/14/2021) she wasincidentally found to have a 1.4 cm left superficial parotid mass that has not been biopsied. We discussed that 80% of masses in the parotid are benign, the most common of which is pleomorphic adenoma,which does have a risk of becoming malignant. She has a remote smoking history where she smoked 0.2 packs per day for 17 years and quit in 1984. We discussed the benefits and alternatives of obtaining a needle biopsy and the patient is interested in proceeding with surgery. We discussed the risks and benefits of surgery. The risks would include scar formation and the potential for temporary or permanent numbness and facial nerve injury. In the event a neck dissection was necessary, there is a risk of temporary or permanent hypoglossal nerve injury, lingual nerve injury, and accessory nerve injury. We discussed the potential for other neurovascular injury as well as the risk for bleeding, infection and sialocele. We discussed the potential for Velasco's Syndrome, Firsy bitesyndrome and the risk for recurrence despite adequate surgery. She understands that in the event of malignancy there is the potential need for adjuvant therapy as well. Finally, we discussed the possibility of an abdominal dermal fat graft in the event a total parotidectomy were necessary. She will stop her Aspirin 81 mg, which she takes for general prophylaxis, before surgery. Our plan will be as follows: Proceed to the OR on 01/03/22 for left superficial parotidectomy, possible total parotidectomy, possible abdominal fat graft Testing: Pre-op COVID test Medications: None Consults: Allergy testing (hx of penicillin allergy), ALEX PATIENT EDUCATION Ready to learn, no apparent learning barriers were identified; learning preferences include listening. Explained diagnosis and treatment plan; patient expressed understanding of the content. Associated attestation - Tori Arredondo M.D. - 12/31/2021 2:26 PM CDT I personally spent over half of a total 45 minutes face to face with the patient in counseling and discussion and/or coordination of care as described above. #1 Mass Parotid Our plan will be as follows: Proceed to the OR on 01/03/22 for left superficial parotidectomy, possible total parotidectomy, possible abdominal fat graft Testing: Pre-op COVID test Medications: None Consults: Allergy testing (hx of penicillin allergy), ALEX documented in this encounter Plan of Treatment Scheduled Referrals Name Type Priority Associated Order Schedule Diagnoses Preoperative Outpatient Referral Routine Mass Parotid Expected : Evaluation ALEX 12/31/2021 consult (clinic) (Approximat e), Expires: 04/02/2023 Allergy and Outpatient Referral Routine Mass Parotid Expected : Immunology - 12/31/2021 Penicillin allergy (Approxim ate), consult (clinic) Expires: 04/02/2023 documented as of this encounter Results Penicillin Skin Test (01/01/2022 12:45 PM CDT) Narrative MMODAL - 01/01/2022 12:45 PM CDT Genesis Medina R.N. ? 01/01/2022 ??1:24 PM Penicillin and other antibiotic skin norma t ?? Flowsheet Row Clinical Support from 01/01 in Division of Allergic Diseases in [facility] a Penicillin and other antibiotics (Prick) [...] Code Phon e Number MMODAL MMODAL NA SARS Coronavirus 2, Molecular Detection, PCR, Varies Asymptomatic (12/31/2021 1:21 PM CDT) Patholo gist Method Time Signature COVID-19, Swab, 12/31/2021 DTL PCR, Source Nasopharynx 5:55 PM CDT COVID-19, Undetected Undetected 12/31/2021 DTL PCR, Result 5:55 PM CDT Comment: SARS-CoV-2 RNA absent. This result does not rule out COVID-19 in the patient, as the sensitivity of the test depends o n the timing of the specimen collection and quality of the specimen. Result should be correlated with patient's history and clinical presentat ion. ----ADDITIONAL INFORMATION---- This RT-PCR test using the MegaBits SARS-Co V-2 Assay ( [employer].) performed on the MegaBits Two Module System has received Emergency Use Authorization (EUA) by the U.S. Food and Drug Administration, and is modified from the non profit job titles's instructions with a bridging study. Performance characteristics were verifie d by [facility] in a manner consistent with CLIA requirements. Visit the CDC website: https://www.cdc.g ov/coronavirus/ for the most recent guidelines on Dempsey virus testing. Fact Sheet for Healthcare Providers: https://www.fda.gov/media/828829/downloa d Fact Sheet for Patients: https://www.fda.gov/media/249627/downloa d Specimen Anatomical Collection Method Collection Time Receive d Time (Source) Location / / Volume Laterality Varies 12/31/2021 1:21 PM 2 1:47 (Nasopharynx) CDT PM CDT Tori Arredondo M.D. LAB MICROBIOLOGY - GENERAL O ZAHRAERABLES Performing Organization Address City/State/ZIP Code Phon e Number [facility] - [address] [place], [place] [address] [facility] [place] [address] [facility] [address] [facility] ECG 12 Lead (12/31/2021 1:01 PM CDT) athologist Signature Ventricular Rate 75 BPM MUSE ECG/Min AL Interval 170 ms MUSE QRSD Interval 96 ms MUSE QT Interval 394 ms MUSE QTC Interval 439 ms MUSE P [place] 64 degrees MUSE R [place] 95 degrees MUSE T Wave [place] 68 degrees MUSE Specimen Anatomical Collection Method Collection Time Receive d Time (Source) Location / / Volume Laterality 12/31/2021 1:01 PM 1:15 CDT PM CDT Impressions MUSE - 12/31/2021 1:16 PM CDT Sinus rhythm Premature ventricular complexes Rightward axis No previous ECGs available Reviewed by TAMARA Yeung Narrative This result has an attachment that is no t available. Procedure Note Diogo Baires M.D. - 12/31/2021Fo rmatting of this note might be different from the original. IMPRESSION: Sinus rhythm Premature ventricular complexes Rightward axis No previous ECGs available Reviewed by TAMARA Yeung Tori Arredondo M.D. ECG ORDERABLES Performing Organization Address City/State/ZIP Code Phon e Number MUSE MUSE NA CBC with Differential, Blood (12/31/2021 11:24 AM [...] Organization Address City/State/ZIP Code Phon e Number [facility] - [address] [place], [place] [address] [facility] [place] [address] [facility] [address] [facility] Basic Metabolic Panel (12/31/2021 11:24 [...] 12/31/2021 DTL Black/ mL/min/BSA 12:28 PM CDT [place] Comment: ----ADDITIONAL INFORMATION---- Estimated GFR calculated using [...] Organization Address City/State/ZIP Code Phon e Number [facility] - [address] [place], [place] [address] [facility] [place] [address] [facility] [address] documented in this encounter Visit Diagnoses Diagnosis Mass Parotid Mass Parotid documented in this encounter
--- OUTSIDE RECORDS SUMMARY | 2022-03-07 11:17 | XMS_ITS | Encounter Summary ---
:1950 Author Organization [facility] Address [address] [place] [address] Care Team Providers Name Role Phone Unavailable Primary Care Provider Unavailable Encounter Details Date Type Department Care Team Description 01/03/2022 Anesthesia Event RST ROMB MAIN OR Abdoul Swartz M.D. [address] [place] [phone] [place] [address] Leonor Mcclelland R.N. [address] [place] [phone] [place] [address] Anesthesia Record Procedure Summary Procedure Name Responsible Anesthesia Start Anesthesia Stop Anesthesiologist Time Time PAROTIDECTOMY Abdoul Swartz M.D. 01/03/22 0737 01/03/22 1128 SUPERFICIAL. (Left: Neck) Events Date Time Event Comment 01/03/2022 0721 0737 An Start Machine/Equipmen t Checked Infection Precautions Foll owed Procedure/Site Verified NPO Sta tus Verified Supine Standard ASA Mon itors Applied 0742 An Induction 0744 An Intubation 0755 Turnover to Proceduralist 0827 Proc Start 1105 Proc Fin 1109 Turnover to ANE Staff 1116 Airway Removal Criteria Met 1116 Extubation/Airway Removed 1116 an stop data 1128 An End I completed my h andoff to the receiving staff during [facility] we 1. Identified the patient 2. Ident ified the responsible provider 3. Revi ewed the pertinent medical history 4. Discussed the surgical course 5. Review ed intra-op anesthesia management and i ssues during anesthesia 6. Set expectati ons for post-procedure period 7. Allowe d opportunity for questions and ac knowledgement of understanding. Name Total fentanyl injection 50 mcg/mL 50 mcg lidocaine 2% (mg) injection 80 mg propofol 10 mg/mL 200 mg propofol 10 mg/mL infusion 1,887.8 mg succinylcholine 20 mg/mL injection 100 mg phenylephrine 100 mcg/mL injection 50 mcg ePHEDrine PF 5 mg/mL syringe injection 5 mg ondansetron 4 mg/2 mL injection 4 mg remifentaniL 20 mcg/mL in NaCl 0.9% 100 mL infusion (U LTIVA) 3.44 mg vancomycin in NaCl 0.9% IVPB 1,250 mg 1,250 mg phenylephrine 80 mcg/mL in NaCl 0.9% 250 mL infusion 2 .19 mg dexamethasone 4 mg/mL injection 4 mg albuterol HFA inhaler 90 mcg/act 6 puff Lactated Ringers Free Drip 500 mL lactated ringers free drip 700 mL Agents No agents on file. Blood No blood administrations on file. Lines, Drains, and Airways Type Details Placement Removal Wound 01/03/22; 0831; N; 01/03/22 0831 by Incision; Neck; Left; Carleen Mccarthy dermabond R.N. Closed/Suction Drain 01/03/22; 1034; Left; 01/03/22 1034 by Neck; Bulb; (7 flat) Carleen Mccarthy, R.N. Peripheral IV Placement Date: 01/03/22; 01/03/22 0700 by 01/03 1350 by Placement Time: 0700; Lilia Buhcanan A laina D, Catheter Size: 20 G; R.N. Orientation: Right; Location: Hand; Site Prep: Chlorhexidine (Preferred); Technique: Anatomical landmarks (VCR); Inserted by: ROGERIO; Insertion Attempts: 1; Removal Date: 01/03/22; Removal Time: 1350 ETT Placement Date: 01/03/22; 01/03/22 0744 by 01/03 1116 by Placement Time: 0744 Leonor Mcclelland, Leonor Augustin (created via procedure R.N. L, R.N. documentation); Mask Ventilation: Not attempted; Type: Standard ETT; Single Lumen Tube Size: 7 mm; Cuffed: Yes; Location: Oral; Grade View: Grade 1; Insertion Attempts: 1; Placement Verification: Bilateral breath sounds, Positive ETCO2, Symmetrical chest wall movement; Airway Comment: RSI ; Removal Date: 01/03/22; Removal Time: 1116 Peripheral IV Placement Date: 01/03/22; 01/03/22 0748 by 01/03 1350 by Placement Time: 0748; Leonor Mcclelland, Tung puga, Vicky Morrell, Catheter Size: 20 G; R.N. R.N. Orientation: Left; Location: Forearm; Removal Date: 01/03/22; Removal Time: 1350 documented in this encounter Social History Tobacco Use Types Packs/Day Years [...] or relatives? How often do you attend zoroastrianism or Not asked jainism services? Do you belong to any clubs or Yes 12/25/2021 organizations such as zoroastrianism groups, unions, fraternal or athletic groups, or [...] a [place] (including now)? Education Answer Date Recorded What is the highest level of school Associate degree: amador sharon, 12/25/2021 you have completed or the highest technical, or vocational p [place] degree you have received? Sex Assigned at Date Recorded Female 12/25/2021 1:18 PM CDT documented as of this encounter OR Notes Anesthesia Postprocedure Evaluation - Manuel Bee M.D. - 01/03/2022 1:31 PM CDT Patient: Gypys Thomas Procedure Summary Date: 01/03/22 Room / Location: [place] [address] / [facility] in [place], [place] Anesthesia Start: 736 Anesthesia Stop: 1127 Procedures: PAROTIDECTOMY SUPERFICIAL. (Left: Neck) MONITORING FACIAL NERVE. (Left) Diagnosis: Mass Parotid (Mass Parotid [K11.8].) Providers: Tori Arredondo M.D. Responsible Provider: Abdoul Swartz M.D. Anesthesia Type: general ASA Status: 3 Anesthesia Type: general Last vitals Vitals Value Taken Time BP 136/78 01/03/22 1245 Temp Pulse 60 01/03/22 1330 Resp 15 01/03/22 1247 SpO2 98 % 01/03/22 1330 Vitals shown include unvalidated device data. Please reference Vitals flowsheet for most recent vital signs. Anesthesia Post Evaluation Patient Disposition: dismissal Cardiovascular status: hemodynamics (HR & BP) acceptable Respiratory status: patent airway with spontaneous effort Temperature: normothermic Oxygen requirements: room air Level of consciousness: awake Pain score: pain adequately controlled and/or at baseline Post Op nausea/vomiting: none Hydration status: euvolemic Anesthesia Procedure Notes - Leonor Mcclelland R.N. - 01/03/2022 8:04 AM CDT Associated Order(s): Airway Airway Date/Time: 01/03/2022 7:44 AM Performed by: Leonor Mcclelland R.N. Authorized by: Abdoul Swartz M.D. Patient location during procedure: OR / Procedure Area PROCEDURE DETAILS: Mask difficulty assessment: not attempted Final airway type: video laryngoscope Laryngeal Manipulation: no Final best view of glottic structures - Cormack/Lehane Score: grade 1 ETT location: oral VL device: glide scope [place] scope blade size: 3 Adult tube size: 7 Adult ETT distance at teeth/gum: 22 Oral tube type: standard ETT Cuffed: yes Number of attempt to successful placement: 1 Airway confirmation: bilateral breath sounds, positive ETCO2 and bilateral chest rise Other previous techniques attempted: none Additional Comments RSI PRE PROCEDURE DETAILS: Pre evaluation for airway management: procedure Urgency: elective Preop assessment of probable difficulty: no difficulty anticipated Preoxygenation: bag valve mask SEDATION / ANESTHESIA Anesthesia method: anesthesia POST PROCEDURE DETAILS: Procedure outcome: successful Airway event: no complications Anesthesia Preprocedure Evaluation - Abdoul Swartz M.D. - 01/03/2022 7:20 AM CDT Preprocedure Anesthesia & H&P Assessment Procedure Summary Date/Time: 01/03/22 0745 Procedures: PAROTIDECTOMY SUPERFICIAL. (Left: Neck) PAROTIDECTOMY, TOTAL. (Left) NECK DISSECTION. (Left) MONITORING FACIAL NERVE. (Left) HARVEST FAT GRAFT ABDOMEN. (Abdomen) Diagnosis: Mass Parotid [K11.8] Pre-op diagnosis: Mass Parotid [K11.8]. Location: [address] 01 [facility] / [facility] in [place], [place] Providers: Tori Arredondo M.D. Pertinent components of the patient's history including current problem list, medical history, surgical history, family history, social history, medications and allergies were reviewed. Present illnessand pre-op diagnosis were confirmed. The planned surgery / procedure was verified with the patient /legal guardian. The patient's general health condition remains unchanged RELEVANT COMORBID CONDITIONS CV (+) Hypertension Essential Primary RESP (+) Asthma (HCC) GENETICS (+) Hyperlipidemia OBJECTIVE PHYSICAL EXAMINATION Airway (HEENT) Mallampati: I TM Distance: >3 FB Neck ROM: Full Mouth Opening: >3 cm Upper Lip Bite Test Class: I Cardiovascular Rhythm: Regular Rate: Normal Cardiovascular Assessment: cardiovascular normal Functional Capacity: >4 METS Pulmonary Pulmonary Assessment: Clear General / Constitutional Constitutional Assessment: Normal General State of Health:: healthy appearing and calm ASSESSMENT / PLAN ANESTHESIA PLAN ASA: 3 Anesthesia Plan: general Patient seen and allergies reviewed, anesthesia plan and risks discussed directly with patient /legal guardian or through an transport rn. The use of blood products not discussed Approval to Proceed: approved for anesthesia documented in this encounter Plan of Treatment Not on filedocumented as of this encounter Procedures Procedure Name Priority Date/Time Associated Comments Diagnosis LDA ANE ENDOTRACHEAL Routine 01/03/2022 7:44 AM R esults for this AIRWAY CDT procedure are i n the results section. documented in this encounter Results LDA ANE ENDOTRACHEAL AIRWAY (01/03/2022 7:44 AM CDT) Narrative Leonor Mcclelland R.N. - 01/03/2022 7 :44 AM CDT Leonor Mcclelland R.N. ? 01/03/2022 ??8:08 AM Airway Date/Time: 01/03/2022 7:44 AM Performed by: Leonor Mcclelland R.N. Authorized by: Abdoul Swartz M.D. Patient location during procedure: OR / Procedure Area PROCEDURE DETAILS: Mask difficulty assessment: not attempte d Final airway type: video laryngoscope Laryngeal Manipulation: no ?? Final best view of glottic structures - Cormack/Lehane Score: grade 1 ETT location: oral VL device: glide scope [place] scope blade size: 3 Adult tube size: 7 Adult ETT distance at teeth/gum: 22 Oral tube type: standard ETT Cuffed: yes Number of attempt to successful placemen t: 1 Airway confirmation: bilateral breath so unds, positive ETCO2 and bilateral chest rise Other previous techniques attempted: non e Additional Comments RSI ?? PRE PROCEDURE DETAILS: Pre evaluation for airway management: pr ocedure Urgency: elective Preop assessment of probable difficulty: no difficulty anticipated Preoxygenation: bag valve mask SEDATION / ANESTHESIA Anesthesia method: anesthesia POST PROCEDURE DETAILS: ? Procedure outcome: successful ?? Airway event: no complications Abdoul Swartz M.D. ANESTHESIA ORDERABLES documented in this encounter Visit Diagnoses Not on filedocumented in this encounter Administered Medications Inactive Administered Medications - up to 3 most recent administrations Medication Order MAR Action Action Date Dose Rate Site albuterol 90 mcg/actuation Given 01/03/2022 8:15 AM CDT 6 puffs inhaler inhalation, As needed, Starting on Thu01/03/22 at 0815, Anesthesia Intra-op dexAMETHasone injection (DECADRON) Given 01/03/2022 8:14 AM CDT 4 mg intravenous, As needed, Starting on Thu01/03/22 at 0814, Anesthesia Intra-op ePHEDrine (PF) injection Given 01/03/2022 7:50 AM CDT 5 mg intravenous, As needed, Starting on Thu01/03/22 at 0750, Anesthesia Intra-op fentaNYL injection (SUBLIMAZE) Given 01/03/2022 10:35 AM CDT 25 mcg intravenous, As needed, Starting on Thu01/03/22 at 1015, Anesthesia Intra-op Given 01/03/2022 10:15 AM CDT 25 mcg lactated ringers New Bag 01/03/2022 7:42 AM CDT intravenous, Continuous Infusion: Per Instructions PRN, Starting on Thu01/03/22 at 0742, Anesthesia Intra-op lactated ringers New Bag 01/03/2022 7:48 AM CDT intravenous, Continuous Infusion: Per Instructions PRN, Starting on Thu01/03/22 at 0748, Anesthesia Intra-op lidocaine (PF) (cardiac) injection Given 01/03/2022 7:42 AM CDT 80 mg intravenous, As needed, Starting on Thu01/03/22 at 0742, Anesthesia Intra-op ondansetron (PF) injection (ZOFRAN) Given 01/03/2022 10:36 AM CDT 4 mg intravenous, As needed, Starting on Thu01/03/22 at 1036, Anesthesia Intra-op phenylephrine 80 Rate/Dose Change 01/03/2022 10:28 0.1 mcg/kg/min 6.1 5 mL/hr mcg/mL in NaCl 0.9% AM CDT 250 mL infusion 0-1 mcg/kg/min ? 82 kg (0-61.5 mL/hr), intravenous, Continuous, Starting on Thu01/03/22 at 0645, Intra-Op, 20 mg in 250 mL, Patient Type: Standard, initiate at: Other, Rate: Per Provider, Titrate at: Other, Titrate: Per Provider, Goal: Other, Goal: Per Provider Rate/Dose Change 01/03/2022 9:43 AM CDT 0.15 mcg/kg/min 9.225 mL/hr Rate/Dose Change 01/03/2022 9:32 AM CDT 0.1 mcg/kg/min 6.15 mL/hr phenylephrine injection Given 01/03/2022 8:31 AM CDT 50 mcg intravenous, As needed, Starting on Thu01/03/22 at 0831, Anesthesia Intra-op propofol 10 mg/mL infusion Rate/Dose 01/03/2022 75 mcg/kg/min 36.855 (DIPRIVAN) Change 10:39 AM CDT mL/hr intravenous, Continuous Infusion: Per Instructions PRN, Starting on Thu01/03/22 at 0742, Anesthesia Intra-op Rate/Dose Change 01/03/2022 10:24 AM CDT 100 mcg/kg/min 49.14 mL/hr Rate/Dose Change 01/03/2022 8:20 AM CDT 125 mcg/kg/min 61.425 mL/hr propofoL injection (DIPRIVAN) Given 01/03/2022 7:43 AM CDT 200 mg intravenous, As needed, Starting on Thu01/03/22 at 0743, Anesthesia Intra-op remifentaniL 20 mcg/mL in NaCl New Bag 01/03/2022 7:42 AM 0.2 mcg/kg/min 49.14 mL/hr 0.9% 100 mL infusion (ULTIVA) CDT intravenous, Continuous Infusion: Per Instructions PRN, Starting on Thu01/03/22 at 0742, Anesthesia Intra-op succinylcholine (PF) injection (ANECTINE ) Given 01/03/2022 7:44 AM CDT 100 mg intravenous, As needed, Starting on Thu01/03/22 at 0744, Anesthesia Intra-op vancomycin in NaCl 0.9% IVPB 1,250 mg Given 01/03/2022 8:00 AM CDT 1,250 mg 1,250 mg (rounded from 1,228.5 mg = 15 mg/kg ? 81.9 kg), intravenous, at 175 mL/hr, Administer over 90 Minutes, Once, On Thu01/03/22 at 0730, For 1 dose, Pre-Op, Drug Monitoring Program: Pharmacist to adjust medication dosing based on indication and drug clearance factors., Indications: Prophylaxis, surgical, surgery (parotidectomy; allergic to cephalosporins) documented in this encounter
--- OUTSIDE RECORDS SUMMARY | 2022-03-07 11:17 | XMS_ITS | Clinical Summary ---
:1950 Author Organization [facility] Address [address] [place] [address] Care Team Providers Name Role Phone Unavailable Primary Care Provider Unavailable Source Comments Patient records contain information from all sites at [facility]. For routine questions regarding patient records, call [phone] during business hours, M-F 8:00 AM - 5:00 PM Central Time. Record requests for emergency care only can be directed to [phone] at any time.[facility] Allergies Active Allergy Reactions Severity Noted Date Comments Cephalosporins Anaphylaxis, Hives, Shortness Medium 0 of breath, Itching Erythromycin Hives, Itching Medium 08/08/2014 Lovastatin Hives, Itching, Rash Medium 12/26/2021 Mold Extracts Anaphylaxis High 08/08/2014 Mold, mildew, smuts Psyllium Hives, Itching, Rash Medium 05/25/2014 Triamcinolone Anaphylaxis, Other (see High 05/25/1999 comments) Medications Medication Sig Dispensed Refills Start Date End Date Status albuterol 90 2 sprays qid prn 0 02/24/2005 Active mcg/actuation inhaler fluticasone propionate 2 puffs bid prn 0 06/03/2004 Active (FLONASE) 50 mcg/actuation nasal spray aspirin 81 mg chewable Take 1 tablet 0 05/25/2009 Active tablet daily levalbuterol (XOPENEX) Inhale. 0 Active 1.25 mg/3 mL nebulizer solution montelukast (SINGULAIR) Take 10 mg by 0 10/01/2021 Active 10 mg tablet mouth at bedtime. pantoprazole (PROTONIX) Take 40 mg by 0 12/11/2021 Active 40 mg EC tablet mouth daily. potassium chloride Take 10 mEq by 0 12/02/2021 Active (KLOR-CON M) 10 mEq ER mouth 2 (two) tablet times a day as needed. pravastatin (PRAVACHOL) Take 20 mg by 0 11/21/2021 Active 20 mg tablet mouth at bedtime. triamterene-hydroCHLORO Take 1 tablet by 0 2 Active thiazide (MAXZIDE-25) mouth daily. 37.5-25 mg per tablet LORazepam (ATIVAN) 0.5 TAKE ONE TABLET 0 11/22/2021 Active mg tablet BY MOUTH EVERY 6-8 HOURS NEEDED FOR ANXIETY. Symbicort 160-4.5 Inhale 2 puffs 2 0 10/22/2021 Active mcg/actuation inhaler (two) times a day. acetaminophen (TYLENOL) Take 2 tablets 0 01/03/2022 Active 500 mg tablet (1,000 mg total) by mouth every 6 (six) hours as needed for pain. ibuprofen Take 3 tablets 0 01/03/2022 Acti ve (ADVIL,MOTRIN) 200 mg (600 mg total) by tablet mouth every 6 (six) hours as needed for pain. Take with food. oxyCODONE (ROXICODONE) Take 1 tablet (5 10 tablet 0 01/03/2022 Active 5 mg immediate release mg total) by tabletIndications: mouth every 4 Acute Pain (four) hours as needed for severe pain or score 7-10 of 10 Indication: Acute Pain. 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 (Primary Dx) 01/03/2022 Surgery Tim Padilla, PAROTIDECTOMY MARIEL Alberts. Humberto 01/03/2022 Anesthesia Event Abdoul Swartz M.D. Brinkman, Brianna L, R.N. 01/03/2022 Hospital Encounter Braeden Arredondo Paro tid (Primary Dx); Tori Cartwright Mass Mane Paul 01/01/2022 Comprehensive Visit Allergy and Immunology Patrick Zapata Allergy Drug Initial (Primary Dx); Humberto Wheatley Mass Parotid; Allergy Food In itial 01/01/2022 Clinical Support Allergy and Immunology Chay Arredondo ass Parotid Humberto Alberts Jaylin A, R.N. 01/01/2022 Comprehensive Visit Anesthesiology Sid Arredondo ension Essential Primary (Primary Dx); Tori Cartwright, Mass Parotid; Humberto Asthma ([facility]); Abhishek Stroud Preanesthetic M edical Exam Humberto Nick 12/31/2021 Hospital Encounter Laboratory Medicine iTm Padilla Ma ss Parotid Tori Cartwright M.D. 12/31/2021 Ancillary Procedure 12/31/2021 Comprehensive Visit Otorhinolaryngology Chay Arredondo ass Parotid Tori Cartwright M.D. 12/31/2021 Orders Only Allergy and Immunology Nash Zapata gy Ellyn Wheatley M.D. Personal Histor y (Primary Dx) 12/26/2021 Clinical Admitting/Central Pre-visit Intake Communication Scheduling 12/23/2021 Clinical Otorhinolaryngology ASAD Arredondo Communication Tori Cartwright M.D. 12/23/2021 Clinical Admitting/Central Prescheduling Appointme nt Communication Scheduling , Provider 12/17/2021 Community Orders Braeden Mati gissell Jain (Primary Dx) Humberto from Last 3 Months Family History Medical History Relation Name Comments Asthma Father Dano Colon cancer Father Dano 1985 Other cancer Father Dano 1997 Possible stomach/esophage al was cause of Coronary artery disease Father's Brother Sharan 1978 Prostate cancer Father's Brother Sharan 1980 Anxiety disorder Mother Nara Dementia Mother Nara 1996 Other cancer Mother's Sister Dee Stomach cancer Pancreatic cancer Paternal Grandmother Maria A 1979 Relation Name Status Comments Father Dano Father's Brother Sharan Mother Nara Mother's Sister Dee Paternal Grandmother Maria A Social History Tobacco Use Types Packs/Day Years Used Date Smoking Tobacco: Former Cigarettes 05/1967 - 01/23/1985 Smokeless Tobacco: Never Tobacco Cessation: Counseling Given: Not Answered Comments: I was never a heavy smoker. [...] or relatives? How often do you attend jainism or Not asked presybeterian services? Do you belong to any clubs or Yes 12/25/2021 organizations such as jainism groups, unions, fraternal or athletic groups, or [...] place to sleep or slept in a residential (including now)? Education Answer Date Recorded What is the highest level of school Associate degree: amador herrera, 12/25/2021 you have completed or the highest technical, or vocational p eloy degree you have received? Sex Assigned at Date Recorded Female 12/25/2021 1:18 PM CDT Last Filed Vital Signs Vital Sign Reading [...] Mass Index 30.05 01/03/2022 6:54 AM CDT Plan of Treatment Health Maintenance Due Date Last Done Comments Bone Density Scan (Osteoporosis 1950 Screen) CT Colonography 1950 Cologuard 1950 Colonoscopy 1950 Colorectal Cancer Surveillance 1950 Hepatitis C Screening 1950 Lipid (Cholesterol) Screening 1950 Mammogram 1950 Zoster Vaccines (1 of 2) 2001 Depression Screening (Annual 05/25/2021 PHQ-2) COVID-19 Vaccine (5 - Booster for 11/04/2021 09/09/2021, , Pfizer series) 08/17/2020, Additional history exists Influenza Vaccine (#1) 2022 03/04/2021, 04/02/2020, 02/21/2019, Additional history exists Creatinine Level 12/31/2022 12/31/2021 Potassium Level 12/31/2022 12/31/2021 Sodium Level 12/31/2022 12/31/2021 Office Visit for Blood Pressure 01/01/2023 01/01/2022 Check / Re-check Fasting Glucose for Diabetes 12/31/2024 12/31/2021 Screening DTaP,Tdap,and Td Vaccines (3 - Td 04/02/2030 04/02/2020, or Tdap) Pneumococcal vaccine (65+ years) Completed 12/23/2018, 11/2016 Fall Risk Screen (Annual) Completed 01/03/2022 Medical Devices Implanted Type Area Hand Button Splitter Device Shelf Model / Identifier Expiration Serial / Date Lot Breast Implant Breast Breast Implant Description: 2 very small titanium piece s from breast biopsy Procedures Procedure Name Priority Date/Time Associated Comments Diagnosis SURGICAL PATHOLOGY, FROZEN Routine 01/03/2022 10:24 Mass Parot id Results for this LAB AM CDT procedure are i n the results section. LDA ANE ENDOTRACHEAL AIRWAY Routine 01/03/2022 7:44 Results for this AM CDT procedure are i n the results section. MONITORING FACIAL NERVE 01/03/2022 7:17 Mass Parotid AM CDT PAROTIDECTOMY SUPERFICIAL 01/03/2022 7:17 Mass Parotid AM CDT ADULT OXYGEN THERAPY Routine 01/03/2022 6:47 AM CDT ALI PENICILLIN SKIN TEST Routine 01/01/2022 12:45 Mass Parotid Results for this PM CDT procedure are i n the results section. SARS CORONAVIRUS 2, Routine 12/31/2021 1:21 Mass Parotid Resul ts for this MOLECULAR DETECTION, PCR, PM CDT pr ocedure are in VARIES the results section. ECG Routine 12/31/2021 1:01 Mass Parotid Results for this PM CDT procedure are i n the results section. CBC WITH DIFFERENTIAL, B Routine 12/31/2021 11:24 Mass Parotid Results for this AM CDT procedure are i n the results section. BASIC METABOLIC PANEL, S/P Routine 12/31/2021 11:24 Mass Parot id Results for this AM CDT procedure are i n the results section. OTORHINOLARYNGOLOGY IMAGE Routine 12/31/2021 9:15 Results for this EXAM AM CDT procedure are i n the results section. from Last 3 Months Results Surgical Pathology, Frozen Lab (01/03/2022 10:24 AM CDT) Component Value Ref Test Analysis Performed Pathologis t Range Method Time At Signature 01/08/2022 STMA 1:03 PM CDT Participated in [facility], 01/08/2022 [facility] the [facility] -Pathology 1:03 PM Interpretation Fellow CDT Report Landen Bradford M.D. 01/08/2022 [facility] electronically 1:03 PM signed by CDT I [...] intraparenchymal and periglandular lymph nodes are identified. ??Knitting Machine Operator Helper tissue submitted for frozen and permanent sections. [...] Organization Address City/State/ZIP Code Phon e Number [facility] - [address] [place], [place] [address] [place] [address] [facility] [address] LDA ANE ENDOTRACHEAL AIRWAY (01/03/2022 7:44 AM CDT) Narrative Leonor Mcclelland R.N. - 01/03/2022 7 :44 AM CDT Leonor Mcclelland R.N. ? 01/03/2022 ??8:08 AM Airway Date/Time: 01/03/2022 7:44 AM Performed by: Leonor Mcclelland R.N. Authorized by: Sheridan, Abdoul C, M.D. Patient location during procedure: OR / Procedure Area PROCEDURE DETAILS: Mask difficulty assessment: not attempte d Final airway type: video laryngoscope Laryngeal Manipulation: no ?? Final best view of glottic structures - Cormack/Lehane Score: grade 1 ETT location: oral VL device: glide scope Graham scope blade size: 3 Adult tube size: [...] no complications Abdoul Swartz M.D. ANESTHESIA ORDERABLES Penicillin Skin Test (01/01/2022 12:45 PM CDT) Narrative MMODAL - 01/01/2022 12:45 PM CDT Genesis Medina R.N. ? 01/01/2022 ??1:24 PM Penicillin and other antibiotic skin norma t ?? Flowsheet Row Clinical Support from 01/01 in Division of Allergic Diseases in [facility] a Penicillin and other antibiotics (Prick) ?? [...] PROCEDURE/MINOR SURGICAL ORD ERABLES Performing Organization Address City/[facility] Phon e Number MMODAL MMODAL NA SARS Coronavirus 2, Molecular Detection, PCR, Varies Asymptomatic (12/31/2021 1:21 PM CDT) [facility] Method Time Signature COVID-19, Swab, 12/31/2021 DTL [...] ----ADDITIONAL INFORMATION---- This RT-PCR test using the [employer]ends SARS-Co V-2 Assay ( KOALA.CH) performed on the LivBlends Two Module System has received Emergency Use Authorization (EUA) by the U.S. Food and Drug Administration, and is modified from the machine riveter's instructions with a bridging study. Performance characteristics were verifie d by [facility] in a manner consistent with CLIA requirements. Visit the CDC website: https://www.cdc.g ov/coronavirus/ for the most recent guidelines on Dempsey virus testing. Fact Sheet for Healthcare Providers: https://www.fda.gov/media/889664/downloa d Fact Sheet for Patients: https://www.fda.gov/media/861856/downloa d Specimen Anatomical Collection Method Collection Time Receive d Time (Source) Location / / Volume Laterality Varies 12/31/2021 1:21 PM 2 1:47 (Nasopharynx) CDT PM CDT Tori Arredondo M.D. LAB MICROBIOLOGY - GENERAL O RDERABLES Performing Organization Address City/[facility] Phon e Number [facility] - [address] [place], [place] [address] [facility] [place] [address] [facility] [address] ECG 12 Lead (12/31/2021 1:01 PM CDT) athologist Signature Ventricular Rate 75 BPM MUSE ECG/Min UT Interval 170 ms MUSE QRSD Interval 96 ms MUSE QT Interval 394 ms MUSE QTC Interval 439 ms MUSE P [place] 64 degrees MUSE R [place] 95 degrees MUSE T Wave [place] 68 degrees MUSE Specimen Anatomical Collection Method Collection Time Receive d Time (Source) Location / / Volume Laterality 12/31/2021 1:01 PM 2 1:15 CDT PM CDT Impressions MUSE - [...] with Differential, Blood (12/31/2021 11:24 AM CDT) athologist Signature Hemoglobin 13.5 11.6 - 12/31/2021 [...] Organization Address City/State/ZIP Code Phon e Number [facility] - [address] [place] [address] [facility] [place] [address] [facility] 200 [facility] Basic Metabolic Panel (12/31/2021 11:24 AM CDT) [...] 12/31/2021 DTL Black/ mL/min/BSA 12:28 PM CDT Syrian Comment: ----ADDITIONAL INFORMATION---- Estimated GFR calculated using [...] Organization Address City/State/ZIP Code Phon e Number [facility] - [address] [place], [place] [address] [facility] [place] [address] [facility] [address] Direct Laryngoscopy-Otorhinolaryngology Image Exam (12/31/2021 9:15 AM [...] Code Phon e Number IIMS IIMS NA from Last 3 Months Insurance Payer Benefit Plan Subscriber ID Effective Phone Address Typ e / Group Dates MEDICARE MEDICARE A [id number] 2016-Pre [address] [place] [address] [employer] [place] [id number] 2016-Pres [phone] [address]ER X Cost Share BLUE SHIELD BLUE COST ent [phone] [place] [address]
--- OUTSIDE RECORDS SUMMARY | 2022-03-07 11:17 | XMS_ITS | Encounter Summary ---
:1950 Author Organization [facility] Address [address] [place] [address] Care Team Providers Name Role Phone Unavailable Primary Care Provider Unavailable Reason for Visit Outpatient (Routine) - Closed Specialty Diagnoses / Procedures Referred By Contact Refer red To Contact Anesthesiology Diagnoses Mass Parotid Tori Arredondo M.D. [facility] [address] [place] [phone] Referral ID Status Reason Start Date Expiration Date Visits Requ ested Visits Authorized [id number] Closed 12/31/2021 12/31/2022 1 1 Encounter Details Date Type Department Care Team Description 01/01/2022 Comprehensive Visit Preoperative Mark Arredondo M.D. [address] [place] [phone] Hypertension Essential Primary (Primary Dx); Evaluation Center in Abhishek Stroud M.D. [address] [place] [phone] Mass Parotid; [place], [place] Asthma (HCC); [address] [facility] [place]anesthetic [place] [phone] Social History Tobacco Use Types Packs/Day Years [...] or relatives? How often do you attend judaism or Not asked sikh services? Do you belong to any clubs or Yes 12/25/2021 organizations such as judaism groups, unions, fraternal or athletic groups, or [...] place to sleep or slept in a custodial (including now)? Education Answer Date Recorded What is the highest level of school Associate degree: amador herrera, 12/25/2021 you have completed or the highest technical, or vocational p eloy degree you have received? Sex Assigned at Date Recorded Female 12/25/2021 1:18 PM CDT documented as of this encounter Last Filed Vital Signs Vital Sign Reading Time Taken Comments Blood Pressure 109/64 01/01/2022 9:33 AM CDT Pulse 70 01/01/2022 9:33 AM CDT Temperature 35.7 ??C (96.3 ??F) 01/01/2022 9:15 AM CDT Respiratory Rate - - Oxygen Saturation 98% 01/01/2022 9:33 AM CDT Inhaled Oxygen Concentration - - Weight 82 kg (180 lb 12.4 oz) 01/01/2022 9:15 AM CDT Height 164 cm (5' 4.57) 01/01/2022 9:15 AM CDT Body Mass Index 30.49 01/01/2022 9:15 AM CDT documented in this encounter H&P Notes Abhishek Stroud M.D. - 01/01/2022 9:30 AM CDT REASON FOR VISIT: Preoperative Medical Evaluation REFERRING PHYSICIAN: Tori Arredondo M.D. 01/03/2022: PAROTIDECTOMY SUPERFICIAL; Tori Arredondo M.D. Surgery Specific Risk Classification: Low Risk SUBJECTIVE HISTORY OF PRESENT ILLNESS Gypsy Thomas is a 71 y.o. female who is here for preanesthetic medical examination prior to the planned procedure as listed above. The following portions of the patient's history were reviewed and updated as appropriate: allergies,current medications, medical history, social history, surgical history and problem list. REVIEW OF SYSTEMS Constitutional: Positive for fatigue and loss of appetite. Skin: Positive for breast lump. ENT: Positive for persistent hoarse voice. Gastrointestinal: Positive for abdominal (belly) pain or cramping, heartburn and difficulty swallowing. Psychiatric/Behavioral: Positive for feeling nervous, anxious, or on edge in past two weeks. The following systems were negative: Eyes, Respiratory, Cardiovascular, Genitourinary, Hematologic, Musculoskeletal, Neurological Cardiac Risk Scoring: OBJECTIVE OBJECTIVE PHYSICAL EXAMINATION General/Constitutional Constitutional Assessment: Overweight General State of Health: Healthy appearing Airway (HEENT) Mallampati: II TM Distance: >3 FB Neck ROM: Full Mouth Opening: > 3 cm Upper Lip Bite Test: II Dental Assessment: Dentition intact Cardiovascular Rhythm: Regular Rate: Normal Cardiovascular Assessment: Normal Pulmonary Pulmonary Assessment: Clear and non labored Neurological Neurologic Assessment: Alert Musculoskeletal MSK Assessment: Normal Gait: Normal Ambulate with: None Psychiatric Psychiatric Assessment: Calm Dermatology Skin Assessment: normal ASSESSMENT / PLAN Anesthesia: Patient denies previous anesthesia related complications. Airway Hx (aka airway management): nl #1 Mass Parotid Surgery planned #2 Asthma (HCC) Well controlled She will stay on her usual inhalers. Exam is benign #3 Hypertension Essential Primary Good control. We will hold her diuretic the morning of the procedure. ECG yesterday is essentially normal. On a very small K+ supplement and K+ level normal #4 Preanesthetic Medical Exam Anesthesia and monitoring discussed. Lab yesterday normal. OKA Reviewed with patient the Checklist for Surgical Patients [id number]. Written and verbal instructions given on medication management before surgery. RECOMMENDATIONS: Patient medically optimized for planned procedure: Yes Further Recommendations: see above documented in this encounter Plan of Treatment Not on filedocumented as of this encounter Visit Diagnoses Diagnosis Hypertension Essential Primary - Primary Mass Parotid Asthma (HCC) Preanesthetic Medical Exam documented in this encounter
--- OUTSIDE RECORDS SUMMARY | 2022-03-07 11:18 | XMS_ITS | Encounter Summary ---
:1950 Author Organization [facility] Address [address] [place] [address] Care Team Providers Name Role Phone Unavailable Primary Care Provider Unavailable Reason for Referral Outpatient (Routine) - Closed Specialty Diagnoses / Procedures Referred By Contact Refer red To Contact Otorhinolaryngology Diagnoses Mass Parotid Krishna Ma [place] [facility] M.D. [address] [place] [address] Referral ID Status Reason Start Date Expiration Date Visits Requ ested Visits Authorized [id number] Closed 12/17/2021 12/17/2022 1 1 Encounter Details Date Type Department Care Team Description 12/17/2021 [facility], Mass Parotid (Primary AND CLINICS Krishna Jain M.D. Dx) 1999 [facility] [address] [place] [address] [place], [place] [phone] Social History Tobacco Use Types Packs/Day Years [...] or relatives? How often do you attend scientology or Not asked taoist services? Do you belong to any clubs or Yes 12/25/2021 organizations such as scientology groups, unions, fraternal or athletic groups, or [...] place to sleep or slept in a snf (including now)? Sex Assigned at Date Recorded Female 12/25/2021 1:18 PM CDT documented as of this encounter Plan of Treatment Scheduled Referrals Name Type Priority Associated Order Schedule Diagnoses Otolaryngology Referral Outpatient Referral Routine Mass Parot id Expected: 12/17/2021 (Approximate), Expires: 03/19/2023 documented as of this encounter Visit Diagnoses Diagnosis Mass Parotid - Primary documented in this encounter
--- OUTSIDE RECORDS SUMMARY | 2022-03-07 11:18 | XMS_ITS | Encounter Summary ---
:1950 Author Organization [facility] Address [address] [place] [address] Care Team Providers Name Role Phone Unavailable Primary Care Provider Unavailable Reason for Visit Reason Comments Appointment Encounter Details Date Type Department Care Team Description 12/23/2021 Clinical Communication Central Appointment Linda palma Appointment Office in [address] [phone] Social History Tobacco Use Types Packs/Day Years [...] you attend latter day or Not asked confucianism services? Do you belong to any clubs [...] or slept in a correction (including now)? Sex Assigned at Date Recorded Female 12/25/2021 1:18 PM CDT documented as of this encounter Miscellaneous Notes Telephone Encounter - Mariano Arce - 12/23/2021 4:15 PM CDT Disregard my previous message. Patient is scheduled. mariano Telephone Encounter - Benita Lechuga - 12/23/2021 2:41 PM CDT Good afternoon, Mrs. Thomas was referred by her local provider to ENT. When it's possible could she receive a callback to finish the request? Her information has been updated and she can be reached at [phone]. Thank you, [employer] for Referring Providers documented in this encounter Plan of Treatment Not on filedocumented as of this encounter Visit Diagnoses Not on filedocumented in this encounter Additional Health Concerns Infection Onset Date Last Indicated Resolved Time COVID19 Pending 12/31/2021 12/31/2021 12/31/2021 5:56 PM CDT documented as of this encounter
--- OUTSIDE RECORDS SUMMARY | 2022-03-07 11:19 | XMS_ITS | Clinical Summary ---
:1950 Author Organization [employer] [facility] [place] [address] Care Team Providers Name Role Phone Citlalli Roldan MD Primary Care Provider Allergies Active Allergy Reactions Severity Noted Date Comments Cephalosporins Throat Swelling/Closing 08/08/2014 Erythromycin Hives 08/08/2014 Mold Extracts Throat Swelling/Closing 08/08/2014 Penicillin V Hives 08/08/2014 Triamcinolone Throat Swelling/Closing 08/08/2014 Medications Medication Sig Dispensed Refills Start End Date Status Date FLONASE 50 2 puffs bid 1 mdi 5 Active MCG/ACTUATION NASL prn 5 SPRA ADVAIR DISKUS 100 Inhale 1 puff ? 0 Active MCG-50 MCG/DOSE INHL twice daily 5 DSDV for lungs, rinsing mouth after use SINGULAIR 10 MG TAB one tab qd 30 5 Active 5 VENTOLIN 90 2 sprays qid 1 mdi 5 Activ e MCG/ACTUATION prn 5 AEROSOL INHALER RANITIDINE HCL ORAL Take 150 mg by 0 Active mouth 2 times daily. [id number]- Take 3 Tabs by 0 Active VIT C-HYAL ORAL mouth once daily. ASPIRIN (ASPIR-81 Take 81 mg by 0 Active ORAL) mouth once daily. MULTIVIT Take 1 Cap by 0 Active &MINERALS/FERROUS mouth once FUM (MULTI VITAMIN daily. ORAL) TRIAMTERENE-HYDROCHL Take by mouth. 0 Active OROTHIAZID ORAL cholecalciferol Take 2,000 0 Act batsheva (VITAMIN D-3) 2,000 Units by mouth unit capsule once daily. ascorbic acid Take 500 mg by 0 A ctive (VITAMIN C) 500 mg mouth once tablet daily. LEVALBUTEROL Inhale 45 mcg 0 Act batsheva TARTRATE (XOPENEX by mouth. HFA INHL) levalbuterol Inhale 1 Neb 0 Acti ve (XOPENEX) 1.25 mg/3 via a mL nebulizer nebulizer solution every 4 hours if needed. acetaminophen Take 1,000 mg 0 Ac tive (TYLENOL EXTRA by mouth every 2 STRGTH) 500 mg 6 hours if tablet needed. Symbicort 160-4.5 INHALE 2 PUFFS 0 Active mcg/actuation BY MOUTH TWICE 2 (160-4.5 mcg each A DAY actuation) inhaler ibuprofen (ADVIL; Take 600 mg by 0 Active MOTRIN) 200 mg mouth every 6 2 tablet hours if needed. pantoprazole Take 40 mg by 0 Act batsheva (PROTONIX) 40 mg mouth once 2 delayed-release daily. tablet potassium chloride Take 10 mEq by 0 Active (K-DUR, KLOR-CON mouth. 2 M10) 10 mEq tablet pravastatin Take 20 mg by 0 Acti ve (PRAVACHOL) 20 mg mouth at 2 tablet bedtime. lovastatin (MEVACOR) Take 20 mg by 0 02/07 Discontinued 20 mg tablet mouth at 22 (*Medic ation bedtime. adjustment ) Active Problems Problem Noted Date THRUSH 08/30/2004 ASTHMA WITH ACUTE EXACERBATION 07/15/2004 INCONTINENCE STRESS - FEMALE 02/06/2003 HYPERLIPIDEMIA 07/27/2002 EXAMINATION, PREOPERATIVE NEC 11/03/2000 ASTHMA, MILD PERSISTENT 11/03/2000 STATE, FEMALE CLIMACTERIC 11/03/2000 Encounters Date Type Specialty Care Team Description 03/04/2022 Telephone Solo Pollock Proced ure MD 02/07/2022 Office Visit Solo Pollock Consul t (October ED visit - stridor pharyng itis, feels like something is in throat, referre d by ENT) 02/07/2022 Travel 12/27/2021 Lab Requisition Unknown, Doctor 12/27/2021 Lab Requisition Unknown, Doctor from Last 3 Months Immunizations Name Administration Dates Next Due Influenza, IIV3 (Age >=3 years) 04/08/2004, 03/31/2001 Family History Medical History Relation Name Comments Genetic Other mom angina , dad colon ca which was dx at age 60 yrs old. . gr andmother paternal pancreatic ca maternal grandfa ther heart problems also and father asthmatic, Relation Name Status Comments Other Social History Tobacco Use Types Packs/Day Years Used Date Former Smoker 0 Quit: 12/1984 Smokeless Tobacco: Never Used Tobacco Cessation: Counseling Given: Yes Sex Assigned at Date Recorded Not on file COVID-19 Exposure Response Date Recorded In the last 10 days, have you been in contact with No / Unsu re 02/07/2022 1:17 PM CDT someone who was confirmed or suspected to have Coronavirus/COVID-19? Obstetrics History Last Filed Vital Signs Vital Sign Reading Time Taken Comments Blood Pressure 127/67 02/07/2022 1:32 PM CDT Pulse 75 02/07/2022 1:32 PM CDT Temperature 36.4 ??C (97.6 ??F) 08/30/2004 12:00 AM CDT Respiratory Rate 12 11/03/2000 12:00 AM CDT Oxygen Saturation 98% 02/07/2022 1:32 PM CDT Inhaled Oxygen Concentration - - Weight 81.2 kg (179 lb) 02/07/2022 1:32 PM CDT Height 167.6 cm (5' 6) 11/03/2000 12:00 AM CDT Body Mass Index - - Plan of Treatment Upcoming Encounters Date Type Specialty Care Team Description 03/10/2022 Procedure Only Solo Pollock MD [address] Jared borrero CROMWELL MD 5 [phone] (Wo rk) Health Maintenance Due Date Last Done Comments Pneumococcal series for age 65+ (1 1957 - PCV) Tdap 1962 Depression screening for age 12+ 1963 BMI (ht and wt on same day) for 1969 age 18+ Hepatitis C screening for age 1003/05/1969 18-79 Tetanus booster 1971 Zoster (shingles) series for age 1003/05/2001 50+ (1 of 2) Mammogram for age 45-75 02/03/2004 02/02/2003, 07/18/2002, 07/08/2002, Additional history exists Lipids for age 45-75 07/28/2007 07/27/2002, 07/27/2002, 07/06/2002, Additional history exists Colonoscopy through age 75 02/11/2014 02/12/2004 DEXA/DXA scan for age 65+ 2016 Medicare Wellness for age 65+ 2016 COVID-19 vaccine series (5 - 11/04/2021 09/09/2021, 021, Booster for Pfizer series) 08/17/2020, Additiona l history exists Influenza for age 65+ 01/23/2022 04/08/2004, 03/31/2001 Procedures Procedure Name Priority Date/Time Associated Diagnosis Comme nts LAB TRACKING EVENT Routine 12/27/2021 10:50 AM CDT LAB TRACKING EVENT Routine 12/27/2021 10:40 AM CDT PATH BREAST CORE Routine 12/27/2021 10:40 AM Resu lts for this BIOPSY CDT procedure are i n the results section. from Last 3 Months Results LAB TRACKING EVENT (12/27/2021 10:50 AM CDT)Only the most recent of2 results within the time period is included. Specimen Anatomical Collection Method Collection Time Receive d Time (Source) Location / / Volume Laterality Other (Other) Client Collect / 12/27/2021 10:50 2021 8:19 Unknown AM CDT PM CDT Doctor Unknown LAB BILL ONLY Performing Organization Address City/State/ZIP Code Phon e Number [facility] [address] [place] [address] LABORATORY-CENTRAL 1999 LABORATORY PATH BREAST CORE BIOPSY (12/27/2021 10:40 AM CDT) Component Value Ref Test Analysis Performed At [facility] gist Range Method Time Signature Case Report Pathology Report ?Case: [id number] ? 12/30/2021 JAKI Authorizing Provider: ??Unkn own, Doctor ?Collected: ? 12/27/2021 1040 ? 12:06 PM HEAL TH Ordering Location: ? [facility] CENTRAL LAB ?Received: ?12/27/20212025 ? CDT TATIANNA CALI Pathologist: ? Zach Davila MD ? ENTRAL Specimens: ?? A) - Left Emani st Core Ultrasound Biopsy ? LABORATORY ? B) - Left Breast Core Ultrasound Biopsy ? Final A) LEFT BREAST, 12:00, 4 CM FROM NIPPLE, ULTRASOUND- IDED CORE BIOPSY: 12/30/2021 [facility] Electronically Diagnosis 1. Fibrosis, lymphohistiocyt ic inflammation, and foreign-body giant cell reaction with cholesterol clefts, consistent with duct rupture 12:06 PM HEALTH signed by Guerita, 2. Negative for atypia and malignancy CD T LABORATORY-C Chanel Frost MD ENTRAL for Zach Davila B) LEFT BREAST, 2:00, 4 CM FROM NIPPLE, ULTRASOUND-GUIDED CORE BIOPSY: EDUARDO Chin MD on 1. Fibrosi, lymphohistiocyti c inflammation, and foreign-body giant cell reaction with cholesterol clefts, consistent with duct rupture 12/30/2021 at 2. Negative for atypia and malignancy 12:06 PM Comment A-B) This is an image-guided breast biopsy. The pathologic findings should be correlated with radiologic and clinical findings prior to treatment decisions. 12/30/2021 [facility] 12:06 PM HEALTH Case seen in consultation with Dr. Dexter. CDT LABORATORY-C ENTRAL LABORATORY Clinical A) 4 x 3 x 4 mm solid, hypoe choic, indistinct, irregular mass, with shadow, of the left breast at 12:00, 4 cm from the nipple 12/30/2021 [facility] Information 12:06 PM HEALTH B) 3 x 3 x 4 mm solid, hypoe choic, indistinct, irregular mass of the left breast at 2:00, 4 cm from the nipple CDT LABO RATORY-C ENTRAL LABORATORY Gross A) Label: ??Patient's name and Left breast 12:00 12/30/2021 [facility] Description Description: 4 Fibrofatty core biopsies 12:06 PM HEALTH Size: 0.3-0.5 cm in length by 0.2 cm in diameter CDT LABORATORY-C Ink color: Black ENTRAL The specimen is submitted in toto in one cassette. LABORATORY Cold ischemic time: Less gary n 60 minutes, meets current ASCO/CAP guidelines. ?? The specimen was fixed in formalin for a minimum of 6 hours and not longer than 72 hours. B) Label: ??Patient's name and left breast 2:00 Description: 4 Fibrofatty core biopsies Size: 0.2-0.7 cm in length by 0.2 cm in diameter Ink color: Blue The specimen is submitted in toto in one cassette. Cold ischemic time: Less gary n 60 minutes, meets current ASCO/CAP guidelines. ?? The specimen was fixed in formalin for a minimum of 6 hours and not longer than 72 hours. Edgardo Hooks 12/27/2021 9:10 PM Microscopic The final diagnosis is based on microscopic examination of appropriate sections of all specimens. 12/30/2021 RAD[facility] BARAJAS Description 12:06 PM HEALTH A) The presence of black ink is confirmed on tissue sectio ns. CDT LABORATORY-C ENTRAL B) The presence of blue ink is confirmed on tissue sections. LABORATORY Additional 12/30/2021 [facility] Information Interpreted at [facility], Central Laboratory - [address] [place] [address], [place] [address] 12:06 PM HEALTH CDT LABORATORY-C ENTRAL LABORATORY Specimen (Source) Anatomical Collection Method Collection Time Re ceived Time Location / / Volume Laterality Other (Left Breast 12/27/2021 10:40 12/27 8:26 Core Ultrasound AM CDT PM CDT Biopsy) Specimen 12/27/2021 10:50 12/27/2021 8:29 (specimen) (Left AM CDT PM CDT Breast Core Ultrasound Biopsy) Doctor Unknown PATHOLOGY/CYTOLOGY Performing Organization Address City/State/ZIP Code Phon e Number [facility] [address] 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
[2022-03-07 13:06] LABS: SARS PCR* Negative SARS-CoV-2 (Negative)
== END 2022-03-07 11:11 | disposition home or self-care (01) ==
LOC: NPINS 11:10
PROVIDERS: PCP Family Medicine; Visit Provider Internal Medicine Gastroenterology
DX: Z20.822 Contact with and (suspected) exposure to COVID-19 (principal)
CPT/HCPCS: 87635

== ENCOUNTER 2022-03-10 07:50 | Outpatient (CLI) | payer MEDICARE, BC, SELFPAY ==
--- OUTSIDE RECORDS SUMMARY | 2022-03-10 07:52 | XMS_ITS | Clinical Summary ---
:1950 Author Organization [facility] Address [address] [place] [address] Care Team Providers Name Role Phone Unavailable Primary Care Provider Unavailable Source Comments Patient records contain information from all sites at [facility]. For routine questions regarding patient records, call [phone] during business hours, M-F 8:00 AM - 5:00 PM Central Time. Record requests for emergency care only can be directed to [phone] at any time.[facility] Allergies Active Allergy Reactions Severity Noted Date [...] Overview: Added automatically from request for [place] hedii [id number] Hypertension Essential Primary 12/31/2021 Hyperlipidemia 12/31/2021 Asthma 11/03/2000 Encounters Date Type Specialty Care Team Description 01/22/2022 Office Visit Otorhinolaryngology Tim Padilla, Adenoma Parotid Geraldo Alberts M.D. (Primary Dx) 01/03/2022 Surgery Tim Padilla, PAROTIDECTOMY MARIEL Alberts. Humberto 01/03/2022 Anesthesia Event Abdoul Swartz M.D. Brinkman, Brianna L, R.N. 01/03/2022 Hospital Encounter Braeden Arredondo Paro tid (Primary Dx); Tori Cartwright Mass Parotid Humberto 01/01/2022 Comprehensive Visit Allergy and Immunology Patrick Zapata Allergy Drug Initial (Primary Dx); Humberto Wheatley Mass Parotid; Allergy Food In itial 01/01/2022 Clinical Support Allergy and Immunology Chay Arredondo ass Parotid Humberto Alberts Jaylin A, R.N. 01/01/2022 Comprehensive Visit Anesthesiology Sid Arredondo ension Essential Primary (Primary Dx); Tori Cartwright Mass Parotid; Humberto Asthma ([facility]); Abhishek Stroud Preanesthetic M edical Exam Humberto Nick 12/31/2021 Hospital Encounter Laboratory Medicine Tim Padilla Ma ss Parotid Tori Cartwright M.D. [...] Scheduling , Provider 12/17/2021 Community Orders Braeden Ma (Primary Dx) Humberto from Last 3 Months [...] more drinks on one Never 12/25/2021 occasion? Social Isolation Answer Date Recorded In a typical week, how many times do you More than three soheila es a week 12/25/2021 talk on the phone with family, friends, or neighbors? How often do you get together with friends Once a week 12/25/2021 or relatives? How often do you attend rastafarian or Not asked orthodoxy services? Do you belong to any clubs or Yes 12/25/2021 organizations such as rastafarian groups, unions, fraternal or athletic groups, or [...] Completed 01/03/2022 Medical Devices Implanted Type Area Calculus Teacher Device Shelf Model / Identifier Expiration Serial [...] 01/08/2022 [facility] 1:03 PM CDT Participated in [facility], [facility] -Pathology 1:03 PM Interpretation Fellow CDT Report Landen Bradford M.D. 01/08/2022 [facility] electronically 1:03 PM signed by CDT I [...] intraparenchymal and periglandular lymph nodes are identified. ??Petroleum Geologist tissue submitted for frozen and permanent sections. [...] Organization Address City/State/ZIP Code Phon e Number [facility] - [address] [place], [place] [address] [facility] [place] [address] Laboratories-[facility] [address] LDA ANE ENDOTRACHEAL AIRWAY [...] ETT location: oral VL device: glide scope [place] scope blade size: 3 Adult tube size: [...] 01/01 in Division of Allergic Diseases in [place] a Penicillin and other antibiotics (Prick) [...] PROCEDURE/MINOR SURGICAL ORD ERABLES Performing Organization Address City/[facility] Phon e Number MMODAL MMODAL NA SARS Coronavirus 2, Molecular Detection, PCR, Varies Asymptomatic (12/31/2021 1:21 PM CDT) [facility] Method Time Signature COVID-19, Swab, 12/31/2021 DTL [...] ----ADDITIONAL INFORMATION---- This RT-PCR test using the [employer] SARS-Co V-2 Assay ( Socogame) performed on the [employer] Systems Two Module System has received Emergency Use Authorization (EUA) by the U.S. Food and Drug Administration, and is modified from the technical planner's instructions with a bridging study. Performance characteristics were verifie d by [facility] in a manner consistent with CLIA requirements. Visit the CDC website: https://www.cdc.g ov/coronavirus/ for the most recent guidelines on Dempsey virus testing. Fact Sheet for Healthcare Providers: https://www.fda.gov/media/019240/downloa d Fact Sheet for Patients: https://www.fda.gov/media/568834/downloa d Specimen Anatomical Collection Method Collection Time Receive d Time (Source) Location / / Volume Laterality Varies 12/31/2021 1:21 PM 2 1:47 (Nasopharynx) CDT PM CDT Tori Arredondo M.D. LAB MICROBIOLOGY - GENERAL O RDERABLES Performing Organization Address City/[facility] Phon e Number [facility] - [address] [place], [place] [address] [facility] [place] [address] [facility] [address] ECG 12 Lead (12/31/2021 1:01 PM CDT) athologist Signature Ventricular Rate 75 BPM MUSE ECG/Min DE Interval 170 ms MUSE QRSD Interval 96 ms MUSE QT Interval 394 ms MUSE QTC Interval 439 ms MUSE P Ovid 64 degrees MUSE R Ovid 95 degrees MUSE T Wave Ovid 68 degrees MUSE Specimen Anatomical Collection Method [...] Organization Address City/State/ZIP Code Phon e Number [facility] - [address] [place] [address] [facility] [place] [address] [facility] [address] [facility] Basic Metabolic Panel (12/31/2021 11:24 AM [...] 12/31/2021 DTL Black/ mL/min/BSA 12:28 PM CDT Japanese Comment: ----ADDITIONAL INFORMATION---- Estimated GFR calculated using [...] Organization Address City/State/ZIP Code Phon e Number [facility] - [address] [place], [place] [address] [facility] [place] [address] Laboratories[facility] [address] Direct Laryngoscopy-Otorhinolaryngology Image Exam [...] e / Group Dates MEDICARE MEDICARE A [id number] 2016-Pre [address] Medicare [place] [address] BLUE CROSS [place] [id number] 2016-Pres [phone] [address] X Cost Share BLUE SHIELD BLUE COST ent [phone] [place] [address]
--- OUTSIDE RECORDS SUMMARY | 2022-03-10 07:52 | XMS_ITS | Encounter Summary ---
:1950 Author Organization [facility] Address [address] [place] [address] Care Team Providers Name Role Phone Unavailable Primary Care Provider Unavailable Encounter Details Date Type Department Care Team Description 01/03/2022 Anesthesia Event RST ROMB MAIN OR Abdoul Swartz M.D. [address] [place] [address] [phone] [address] [facility] Leonor Mcclelland, RVanessaNVanessa [address] [place] [phone] [place] [phone] Anesthesia Record Procedure Summary [...] h andoff to the receiving staff during [facility] ch we 1. Identified the patient [...] 1034 by Neck; Bulb; (7 flat) Carleen cMcarthy, R.N. Peripheral IV Placement Date: 01/03/22; 01/03/22 0700 by 01/03 1350 by Placement Time: 0700; Lilia Buchanan A laina D, Catheter Size: 20 G; [...] or relatives? How often do you attend temple or Not asked sabianism services? Do you belong to any clubs or Yes 12/25/2021 organizations such as temple groups, unions, fraternal or athletic groups, or [...] place to sleep or slept in a retirement (including now)? Education Answer Date Recorded What is the highest level of school Associate degree: amador herrera, 12/25/2021 you have completed or the highest technical, or vocational p eloy degree you have received? Sex Assigned at Date Recorded Female 12/25/2021 1:18 PM CDT documented as of this encounter OR Notes Anesthesia Postprocedure Evaluation - Manuel Bee M.D. - 01/03/2022 1:31 PM CDT Patient: Gypsy Thomas Procedure Summary Date: 01/03/22 Room / Location: [place] [address] / [facility] in [place], [place] Anesthesia Start: 736 Anesthesia Stop: 1127 [...] Airway Date/Time: 01/03/2022 7:44 AM Performed by: KrystinLeonor osorio R.N. Authorized by: Abdoul Swartz M.D. Patient location during procedure: OR / Procedure Area PROCEDURE DETAILS: Mask difficulty assessment: not attempted Final airway type: video laryngoscope Laryngeal Manipulation: no Final best view of glottic structures - Cormack/Lehane Score: grade 1 ETT location: oral VL device: glide scope [place] scope blade size: 3 Adult tube size: [...] [K11.8] Pre-op diagnosis: Mass Parotid [K11.8]. Location: [address] 01 [facility] / [facility] in [place], [place] Providers: Tori Arredondo M.D. Pertinent components [...] with patient /legal guardian or through an interpreter deaf. The use of blood products not discussed [...] ETT location: oral VL device: glide scope [place] scope blade size: 3 Adult tube size: [...]
--- OUTSIDE RECORDS SUMMARY | 2022-03-10 07:52 | XMS_ITS | Encounter Summary ---
:1950 Author Organization [facility] Address [address] [place] [address] Care Team Providers Name Role Phone Unavailable Primary Care Provider Unavailable Reason for Visit Outpatient (Routine) - Closed Specialty Diagnoses / Procedures Referred By Contact Refer red To Contact Otorhinolaryngology Citlalli Corley M.D. [address] [place] [phone] Referral ID Status Reason Start Date Expiration Date Visits Requ ested Visits Authorized [id number] Closed 01/03/2022 01/03/2023 1 1 Encounter Details Date Type Department Care Team Description 01/22/2022 Office Visit Department of Camille Arredondo Otorhinolaryngology in Tor[place] Cartwright [place]. [place] [address] [place] [address] (Primary Dx) [address] [place] [phone] Social History Tobacco Use Types Packs/Day Years [...] or relatives? How often do you attend mormonism or Not asked yazdanism services? Do you belong to any clubs or Yes 12/25/2021 organizations such as mormonism groups, unions, [employer] or athletic groups, or school groups? How [...] place to sleep or slept in a mcfp (including now)? Education Answer Date Recorded What is the highest level of school Associate degree: amador herrera, 12/25/2021 you have completed or the highest technical, or vocational p oscarram degree you have received? Sex Assigned at [...] single periparotid lymph node is benign. Ms. Drentlaw has been doing well since our last [...]
--- OUTSIDE RECORDS SUMMARY | 2022-03-10 07:53 | XMS_ITS | Encounter Summary ---
:1950 Author Organization [facility] Address [address] [place] [address] Care Team Providers Name Role Phone Unavailable Primary Care Provider Unavailable Reason for Visit Outpatient (Routine) - Closed Specialty Diagnoses / Procedures Referred By Contact Refer red To Contact Anesthesiology Diagnoses Mass Parotid Tori Arredondo M.D. [facility] [address] [place] [phone] Referral ID Status Reason Start Date Expiration Date Visits Requ ested Visits Authorized [id number] Closed 12/31/2021 12/31/2022 1 1 Encounter Details Date Type Department Care Team Description 01/01/2022 Comprehensive Visit Preoperative Mark Arredondo M.D. [address] [place] [address] [phone] Hypertension Essential Primary (Primary Dx); Evaluation Center in Abhishek Stroud M.D. [address] [place] [phone] Mass Parotid; [place], [place] Asthma (HCC); [address] [facility] [place] [phone] Social History Tobacco Use Types Packs/Day Years [...] or relatives? How often do you attend spiritism or Not asked church services? Do you belong to any clubs or Yes 12/25/2021 organizations such as spiritism groups, unions, fraternal or athletic groups, or [...] place to sleep or slept in a assisted (including now)? Education Answer Date Recorded What [...] with patient the Checklist for Surgical Patients [id number]. Written and verbal instructions given on medication management before surgery. RECOMMENDATIONS: Patient medically optimized for planned procedure: Yes Further Recommendations: see above documented in this encounter Plan of Treatment Not on filedocumented as of this encounter Visit Diagnoses Diagnosis Hypertension Essential Primary - Primary Mass Parotid Asthma (HCC) Preanesthetic Medical Exam documented in this encounter
--- OUTSIDE RECORDS SUMMARY | 2022-03-10 07:53 | XMS_ITS | Encounter Summary ---
:1950 Author Organization [facility] Address [address] [place] [address] Care Team Providers Name Role Phone Unavailable Primary Care Provider Unavailable Encounter Details Date Type Department Care Team Description 01/03/2022 Surgery RST [facility] OR Tori Arredondo PAROTIDECTOMY [address] [facility] Humberto Cartwright SUPERFICIAL. [place], [place] [address] [facility] [address] [place], [place] [phone] (Wo rk) Social History Tobacco Use Types [...] or relatives? How often do you attend islam or Not asked caodaism services? Do you belong to any clubs or Yes 12/25/2021 organizations such as islam groups, unions, fraternal or athletic groups, or [...] place to sleep or slept in a group home (including now)? Education Answer Date Recorded [...] PM CDT DISCHARGE SUMMARY BRIEF OVERVIEW Hospital: [facility] Discharge Provider: Tori Arredondo M.D. [...] Sig Dispensed Refills Start Date End Date albuterol 90 mcg/actuation 2 sprays qid prn 0 07/2004 inhaler aspirin 81 mg chewable Take 1 tablet daily 0 05/2009 tablet fluticasone propionate 2 puffs bid prn 0 06/03/19 05 (FLONASE) 50 mcg/actuation nasal spray levalbuterol (XOPENEX) 1.25 Inhale. 0 mg/3 mL nebulizer solution LORazepam (ATIVAN) 0.5 mg TAKE ONE TABLET BY 0 tablet MOUTH EVERY 6-8 HOURS NEEDED FOR ANXIETY. montelukast (SINGULAIR) 10 Take 10 mg by mouth 0 10/01/2021 mg tablet at bedtime. pantoprazole (PROTONIX) 40 Take 40 mg by [...] (MAXZIDE-25) 37.5-25 mouth daily. mg per tablet acetaminophen (TYLENOL) 500 Take 2 tablets 0 12/23 mg tablet (1,000 mg total) by mouth every 6 (six) hours as needed for pain. ibuprofen (ADVIL,MOTRIN) Take 3 tablets (600 0 200 mg tablet mg total) by mouth every 6 (six) hours as needed for pain. Take with food. oxyCODONE (ROXICODONE) 5 mg Take 1 tablet (5 mg 10 tablet 0 01/03/2022 immediate release total) by mouth tabletIndications: Acute every 4 (four) hours Pain as needed for severe pain or score 7-10 of 10 Indication: Acute Pain. documented as of this encounter Progress Notes Patel Grady, Sohail.D., R.Ph. - 01/03/2022 6:23 AM CDT Images [...] Mass Parotid Post-op Diagnosis Mass Parotid A airplane first officer actively participated and was necessary for one [...] 01/08/2022 STMA 1:03 PM CDT [facility] ST[facility] the [facility] -Pathology 1:03 PM [...] intraparenchymal and periglandular lymph nodes are identified. ??Retail Department Reset tissue submitted for frozen and permanent sections. [...] City/State/ZIP Code Phon e Number [facility] - [address] [place], [place] [address] [facility] [place] [address] Laboratories-[facility] [address] documented in this [...] 1331 (Given - Provider: Vicky Horne RVanessaNVanessa) 600 mg, oral, Once, On Thu01/03/22 at [...] Mcclelland R.N.)1100 (Anesthesia Volume Adjustment - Provider: Mary BanksNVanessa) 1,250 mg (rounded from 1,228.5 mg = [...]
--- OUTSIDE RECORDS SUMMARY | 2022-03-10 07:53 | XMS_ITS | Encounter Summary ---
:1950 Author Organization [facility] Address [address] [place] [address] Care Team Providers Name Role Phone Unavailable Primary Care Provider Unavailable Reason for Visit Reason Comments Appointment Encounter Details Date Type Department Care Team Description 12/23/2021 Clinical Communication Central Appointment Linda palma Appointment Office in [facility] [address] [place], [place] [address] Social History Tobacco Use Types Packs/Day Years [...] or relatives? How often do you attend pentecostal or Not asked episcopal services? Do you belong to any clubs or Yes 12/25/2021 organizations such as pentecostal groups, unions, fraternal or athletic groups, or [...] place to sleep or slept in a penitentiary (including now)? Sex Assigned at Date Recorded [...] updated and she can be reached at [phone]. Thank you, Online Services for Referring Providers documented in this encounter Plan of Treatment Not on filedocumented as of this encounter Visit Diagnoses Not on filedocumented in this encounter Additional Health Concerns Infection Onset Date Last Indicated Resolved Time COVID19 Pending 12/31/2021 12/31/2021 12/31/2021 5:56 PM CDT documented as of this encounter
--- OUTSIDE RECORDS SUMMARY | 2022-03-10 07:53 | XMS_ITS | Encounter Summary ---
:1950 Author Organization [facility] Address [address] [place] [address] Care Team Providers Name Role Phone Unavailable Primary Care Provider Unavailable Reason for Visit Reason Comments Allergy Testing Outpatient (Routine) - Closed Specialty Diagnoses / Procedures Referred By Contact Refer red To Contact Diagnoses Mass Parotid Tori Arredondo M.D. [facility] Procedures Penicillin Skin Test [address] [place] [phone] Referral ID Status Reason Start Date Expiration Date Visits Requ ested Visits Authorized [id number] Closed 12/31/2021 12/31/2022 1 1 Encounter Details Date Type Department Care Team Description 01/01/2022 Clinical Support Division of Allergic Tori Arredondo M.D. [address] [place] [phone] Mass Parotid Diseases in [place], [place], RVanessaN. [address] [place] [phone] [place] [address] [place] [phone] Social History Tobacco Use Types Packs/Day [...] or relatives? How often do you attend synagogue or Not asked sabianism services? Do you belong to any clubs or Yes 12/25/2021 organizations such as synagogue groups, unions, fraternal or athletic groups, or [...] place to sleep or slept in a nursing home (including now)? Education Answer Date Recorded What is the highest level of school Associate degree: amador herrera, 12/25/2021 you have completed or the highest technical, or vocational [facility] degree you have received? Sex Assigned at Date Recorded Female 12/25/2021 1:18 PM CDT documented as of this encounter Procedure Notes Genesis [place], RVanessaN. - 01/01/2022 12:45 PM CDTAssociated Order(s): ALI PENICILLIN SKIN TEST Images from the original note were not included. Penicillin and other antibiotic skin test Flowsheet Row Clinical Support from 01/01/2022 in Division of Allergic Diseases in [place], [place] Penicillin and other antibiotics (Prick) P [...] 01/01 in Division of Allergic Diseases in [place], [facility] a Penicillin and other antibiotics (Prick) ?? [...]
--- OUTSIDE RECORDS SUMMARY | 2022-03-10 07:53 | XMS_ITS | Encounter Summary ---
:1950 Author Organization [facility] Address [address] [place] [address] Care Team Providers Name Role Phone Unavailable Primary Care Provider Unavailable Reason for Referral Outpatient (Routine) - Closed Specialty Diagnoses / Procedures Referred By Contact Refer red To Contact Otorhinolaryngology Citlalli Corley M.D. 200 [place] [address] Referral ID Status Reason Start Date Expiration Date Visits Requ ested Visits Authorized [id number] Closed 01/03/2022 01/03/2023 1 1 Encounter Details Date Type Department Care Team Description 01/03/2022 Hospital Encounter RST [facility] MAIN OR Braeden Arredondo Parotid (Primary Dx); 1216 [facility] Tori Cartwright M.D. Mass Parotid [place], [place] [address] [place] [phone] [place], [place] [phone] Social History Tobacco Use Types Packs/Day Years [...] do you attend mormonism or Not asked jewish services? Do you belong to any clubs or Yes 12/25/2021 organizations such as mormonism groups, unions, fraternal or athletic groups, or school groups? How often do you attend meetings of the More than 4 times r year 12/25/2021 clubs or organizations you [...] place to sleep or slept in a alf (including now)? Education Answer Date Recorded What [...] PM CDT DISCHARGE SUMMARY BRIEF OVERVIEW [facility] Discharge Provider: Tori Arredondo M.D. No primary [...] Mass Parotid Post-op Diagnosis Mass Parotid A project assistant actively participated and was necessary for [...] STMA 1:03 PM CDT Participated in [facility], 01/08/2022 STMA the [facility] -Pathology 1:03 PM [...] intraparenchymal and periglandular lymph nodes are identified. ??Jeweler Apprentice tissue submitted for frozen and permanent sections. [...] City/State/ZIP Code Phon e Number [facility] - [address] [place], [place] [address] [place] [address] [facility] [address] documented in this encounter [...]
--- OUTSIDE RECORDS SUMMARY | 2022-03-10 07:53 | XMS_ITS | Encounter Summary ---
:1950 Author Organization [facility] Address [address] [place] [address] Care Team Providers Name Role Phone Unavailable Primary Care Provider Unavailable Reason for Referral Outpatient (Routine) - Closed Specialty Diagnoses / Procedures Referred By Contact Refer red To Contact Otorhinolaryngology Diagnoses Mass Parotid Krishna Ma [place] M.D. [address] [place] [address] Referral ID Status Reason Start Date Expiration Date Visits Requ ested Visits Authorized [id number] Closed 12/17/2021 12/17/2022 1 1 Encounter Details Date Type Department Care Team Description 12/17/2021 [facility], [place] Parotid (Primary AND CLINICS Krishna Jain M.D. Dx) 1999 [facility] [address] [place] [address] [place], [place] [phone] Social History Tobacco Use Types Packs/Day Years [...] or relatives? How often do you attend gnosticist or Not asked adventism services? Do you belong to any clubs or Yes 12/25/2021 organizations such as gnosticist groups, unions, fraternal or athletic groups, or [...] or slept in a fci (including now)? Sex Assigned at Date Recorded [...]
--- OUTSIDE RECORDS SUMMARY | 2022-03-10 07:53 | XMS_ITS | Encounter Summary ---
:1950 Author Organization [facility] Address [address] [place] [address] Care Team Providers Name Role Phone Unavailable Primary Care Provider Unavailable Reason for Visit Outpatient (Routine) - Closed Specialty Diagnoses / Procedures Referred By Contact Refer red To Contact Allergy and Immunology Diagnoses Mass Parotid Tori Arredondo, [facility] Humberto 200 [place] [address] Referral ID Status Reason Start Date Expiration Date Visits Requ ested Visits Authorized [id number] Closed 12/31/2021 12/31/2022 1 1 Encounter Details Date Type Department Care Team Description 01/01/2022 Comprehensive Visit Division of Nash Zapata Aller gy Drug Initial (Primary Dx); Allergic Diseases M.Jaime Mass Parotid; in [place] [address] [address] [facility] Allergy Food Initial [place], [place] [address] [place] [phone] [place], [place] [phone] (Work) [phone] Social History Tobacco Use Types Packs/Day Years [...] or relatives? How often do you attend mandaeism or Not asked denominational services? Do you belong to any clubs or Yes 12/25/2021 organizations such as mandaeism groups, unions, EvaluAgent or athletic groups, or school groups? How [...]
--- OUTSIDE RECORDS SUMMARY | 2022-03-10 07:53 | XMS_ITS | Encounter Summary ---
:1950 Author Organization [facility] Address 200 [place] [address] Care Team Providers Name Role Phone Unavailable Primary Care Provider Unavailable Reason for Referral Outpatient (Routine) - Closed Specialty Diagnoses / Procedures Referred By Contact Refer red To Contact Diagnoses Tori Trujillo M.D. [facility] Procedures Penicillin Skin Test 200 [place] [address] Referral ID Status Reason Start Date Expiration Date Visits Requ ested Visits Authorized [id number] Closed 12/31/2021 12/31/2022 1 1 Outpatient (Routine) - Closed Specialty Diagnoses / Procedures Referred By Contact Refer red To Contact Allergy and Immunology Diagnoses Tori Trujillo [place] M.D. 200 [place] [address] Referral ID Status Reason Start Date Expiration Date Visits Requ ested Visits Authorized [id number] Closed 12/31/2021 12/31/2022 1 1 Outpatient (Routine) - Closed Specialty Diagnoses / Procedures Referred By Contact Refer red To Contact Anesthesiology Diagnoses Braeden Parotid Tori Arredondo M.D. [facility] 200 [place], [place] [phone] Referral ID Status Reason Start Date Expiration Date Visits Requ ested Visits Authorized [id number] Closed 12/31/2021 12/31/2022 1 1 Outpatient (Routine) - Closed Specialty Diagnoses / Procedures Referred By Contact Refer red To Contact Diagnoses Tori Trujillo M.D. [facility] Procedures ECG 12 Lead 200 [place] [phone] Referral ID Status Reason Start Date Expiration Date Visits Requ ested Visits Authorized [id number] Closed 12/31/2021 12/31/2022 1 1 Reason for Visit Outpatient (Routine) - Closed Specialty Diagnoses / Procedures Referred By Contact Refer red To Contact Otorhinolaryngology Diagnoses Krishna Tolentino [facility] Humberto [address] [place] [address] Referral ID Status Reason Start Date Expiration Date Visits Requ ested Visits Authorized [id number] Closed 12/17/2021 12/17/2022 1 1 Encounter Details Date Type Department Care Team Description 12/31/2021 Comprehensive Visit Department of Braeden Arredondo Otorhinolaryngology in Tori Cartwright [place], [place] Humberto 200 [facility] 200 [place] [address] [place], [place] [phone] Social History Tobacco Use Types Packs/Day Years [...] or relatives? How often do you attend sikh or Not asked yarsani services? Do you belong to any clubs or Yes 12/25/2021 organizations such as sikh groups, unions, fraternal or athletic groups, or [...] place to sleep or slept in a senior care (including now)? Education Answer Date Recorded What [...] referred for evaluation today by their local claims technician. SUBJECTIVE CHIEF COMPLAINT/PURPOSE OF VISIT: Left parotid [...] Friends and Family: Once a week Attends Latter-Day Services: Not on file Active Member of [...] is normal. OP: No masses or ulcers. Bluefield tonsilsare present and are 1+. Parotid/Neck: There is a 1 cm mobile, soft, nontender mass in the left tail of parotid. Skin: No rashes or lesions. Nose: Patent, mucosa is moist, no masses, lesions or mucopurulence noted. HAIRSPRING II INSPECTOR: No masses. Torus tubarius normal. Symmetric fossa [...] 01/01 in Division of Allergic Diseases in [facility] a Penicillin and other antibiotics (Prick) ?? [...] ----ADDITIONAL INFORMATION---- This RT-PCR test using the SHADO SARS-Co V-2 Assay ( TCHO.) performed on the SHADO Two Module System has received Emergency Use Authorization (EUA) by the U.S. Food and Drug Administration, and is modified from the set up mold technician's instructions with a bridging study. Performance characteristics were verifie d by [facility] in a manner consistent with CLIA requirements. Visit the CDC website: https://www.cdc.g ov/coronavirus/ for the most recent guidelines on Dempsey virus testing. Fact Sheet for Healthcare Providers: https://www.fda.gov/media/577007/downloa d Fact Sheet for Patients: https://www.fda.gov/media/462423/downloa d Specimen Anatomical Collection Method Collection Time Receive d Time (Source) Location / / Volume Laterality Varies 12/31/2021 1:21 PM 2 1:47 (Nasopharynx) CDT PM CDT Tori Arredondo M.D. LAB MICROBIOLOGY - GENERAL O ZAHRAERABLES Performing Organization Address City/State/ZIP Code Phon e Number [facility] - [address] [place], [place] [address] [facility] [address] [facility] [address] ECG 12 Lead (12/31/2021 1:01 PM CDT) P athologist Signature Ventricular Rate 75 BPM MUSE ECG/Min SC Interval 170 ms MUSE QRSD Interval 96 ms MUSE QT Interval 394 ms MUSE QTC Interval 439 ms MUSE P [place] 64 degrees MUSE R [place] 95 degrees MUSE T Wave [place] 68 degrees MUSE Specimen Anatomical Collection Method [...] Organization Address City/State/ZIP Code Phon e Number [facility] - 200 [place], [place] [address] [place] [address] [facility] 200 [facility] Basic Metabolic Panel (12/31/2021 11:24 AM [...] 12/31/2021 DTL Black/ mL/min/BSA 12:28 PM CDT Prydeinig Comment: ----ADDITIONAL INFORMATION---- Estimated GFR calculated using [...] Organization Address City/State/ZIP Code Phon e Number [facility] - [address] [place], [place] [address] [place] [address] [facility] [address] documented in this encounter Visit Diagnoses Diagnosis Mass Parotid Mass Parotid documented in this encounter
--- OUTSIDE RECORDS SUMMARY | 2022-03-10 07:53 | XMS_ITS | Encounter Summary ---
:1950 Author Organization [facility] Address [address] [place] [address] Care Team Providers Name Role Phone Unavailable Primary Care Provider Unavailable Encounter Details Date Type Department Care Team Description 12/31/2021 Orders Only Division of Allergic Nash Zapata Alle rgy Drug Personal Diseases in [place] (Primary Dx) [address] [place] [phone] Social History Tobacco Use Types Packs/Day Years [...] or relatives? How often do you attend jain or Not asked presybeterian services? Do you belong to any clubs or Yes 12/25/2021 organizations such as jain groups, unions, fraternal or athletic groups, or [...] or slept in a snf (including now)? Education Answer Date Recorded What is the highest level of school Associate degree: amador herrera, 12/25/2021 you have completed or the highest technical, or vocational p eloy degree you have received? Sex Assigned at Date Recorded Female 12/25/2021 1:18 PM CDT documented as of this encounter Plan of Treatment Not on filedocumented as of this encounter Visit Diagnoses Diagnosis Allergy Drug Personal History - Primary documented in this encounter Additional Health Concerns Infection Onset Date Last Indicated Resolved Time COVID19 Pending 12/31/2021 12/31/2021 12/31/2021 5:56 PM CDT documented as of this encounter
--- OUTSIDE RECORDS SUMMARY | 2022-03-10 07:53 | XMS_ITS | Encounter Summary ---
:1950 Author Organization [facility] Address [address] [place] [address] Care Team Providers Name Role Phone Unavailable Primary Care Provider Unavailable Encounter Details Date Type Department Care Team Description 12/31/2021 Hospital Encounter Department of Tori Arredondo Laboratory Medicine and Humberto Cartwright Pathology, [address] [phone] [place] [address] [place] [address] Social History Tobacco Use Types [...] or relatives? How often do you attend holiness or Not asked judaism services? Do you belong to any clubs or Yes 12/25/2021 organizations such as holiness groups, unions, fraternal or athletic groups, or [...] Organization Address City/State/ZIP Code Phon e Number [facility] 200 [place], [place] [address] [facility] [place] [address] [facility] 200 [facility] Basic Metabolic Panel (12/31/2021 11:24 AM [...] 12/31/2021 DTL Black/ mL/min/BSA 12:28 PM CDT Citizen [place] Comment: ----ADDITIONAL INFORMATION---- Estimated GFR calculated using [...] Organization Address City/State/ZIP Code Phon e Number [facility] [address] [place], [place] [address] [facility] [place] [address] [facility] [address] documented in this encounter Visit Diagnoses Diagnosis Mass Parotid documented in this encounter Additional Health Concerns Infection Onset Date Last Indicated Resolved Time COVID19 Pending 12/31/2021 12/31/2021 12/31/2021 5:56 PM CDT documented as of this encounter
--- OUTSIDE RECORDS SUMMARY | 2022-03-10 07:53 | XMS_ITS | Encounter Summary ---
:1950 Author Organization [facility] Address [address] [place] [address] Care Team Providers Name Role Phone Unavailable Primary Care Provider Unavailable Reason for Visit Reason Comments OSM Encounter Details Date Type Department Care Team Description 12/23/2021 Clinical Department of ASAD Arredondo Otorhinolaryngology in Tori Cartwright [place], [place] Humberto 200 [facility] 200 [place] [address] [place], [place] [phone] [address] Social History Tobacco Use Types Packs/Day Years [...] or relatives? How often do you attend druze or Not asked hinduism services? Do you belong to any clubs or Yes 12/25/2021 organizations such as druze groups, unions, fraternal or athletic groups, or [...] or slept in a halfway (including now)? Sex Assigned at Date Recorded Female 12/25/2021 1:18 PM CDT documented as of this encounter Miscellaneous Notes Telephone Encounter - Radha Farnsworth - 12/25/2021 4:12 PM CDT Imaging received and viewable in [facility]. Report uploaded to chart and viewable in Document Viewer dated 12/25/2021. Radha Telephone Encounter - Radha Farnsworth - 12/25/2021 8:47 AM CDT Faxed request to [facility] at [phone]. Request[address] CT imaging from 10/2021. Thanks Radha Telephone Encounter - Zaida Arce - 12/23/2021 4:17 PM CDT Provider patient is scheduled to see: Dr. Arredondo Appointment Date: 12/31/2021 Primary Indication:Parotid Mass 1) Has the Patient had Imaging Completed? Yes If yes, what types of imaging? Select all that apply: CT What are the approximate dates that this imaging was completed? 10/2021 Does the patient/referrer know what facility? Yes If yes, where was the imaging completed (at minimum, the City and State)? [facility] Does the patient/referrer know the phone number? Yes If yes, please provide: [phone] 2) Has the patient had any additional [...] for OSM was sent to the following Facilities(Enma include the fax number): Had not sent a request As OSM is received, please make sure to note this communication so that everyone is aware of anything that we might still be missing. documented in this encounter Plan of Treatment Not on filedocumented as of this encounter Visit Diagnoses Not on filedocumented in this encounter
--- OUTSIDE RECORDS SUMMARY | 2022-03-10 07:53 | XMS_ITS | Encounter Summary ---
:1950 Author Organization [facility] Address [address] [place] [address] Care Team Providers Name Role Phone Unavailable Primary Care Provider Unavailable Reason for Visit Reason Comments Pre-visit Intake Encounter Details Date Type Department Care Team Description 12/26/2021 Clinical Communication Visit Review in Pr e-visit Intake [place], [place] [address] [place], [place] [address] Social History Tobacco Use Types Packs/Day Years [...] do you attend islam or Not asked lutheran services? Do you [...]
--- OUTSIDE RECORDS SUMMARY | 2022-03-10 07:53 | XMS_ITS | Encounter Summary ---
:1950 Author Organization [facility] Address [address] [place] [address] Care Team Providers Name Role Phone Unavailable [...] or relatives? How often do you attend faith or Not asked zoroastrian services? Do you belong to any clubs or Yes 12/25/2021 organizations such as faith groups, unions, fraternal or athletic groups, or [...] place to sleep or slept in a long term (including now)? Education Answer Date Recorded What [...]
--- OUTSIDE RECORDS SUMMARY | 2022-03-10 07:54 | XMS_ITS | Clinical Summary ---
:1950 Author Organization [facility] [place] [address] Care Team Providers Name Role Phone Citlalli Roldan MD Primary Care Provider Allergies Active Allergy Reactions Severity Noted Date Comments Cephalosporins Throat Swelling/Closing 08/08/2014 Erythromycin Hives 08/08/2014 Mold Extracts Throat Swelling/Closing 08/08/2014 Penicillin V Hives 08/08/2014 Triamcinolone Throat Swelling/Closing 08/08/2014 Medications Medication Sig Dispensed Refills Start Date End Date Status FLONASE 50 2 puffs bid prn 1 mdi 5 06/03/2004 Ac tive MCG/ACTUATION NASL SPRA ADVAIR DISKUS 100 Inhale 1 puff ? 0 08/30/2004 Active MCG-50 MCG/DOSE INHL twice daily for DSDV lungs, rinsing mouth after use SINGULAIR 10 MG TAB one tab qd 30 5 02/24/2005 Active VENTOLIN 90 2 sprays qid prn 1 mdi 5 02/24/2005 Active MCG/ACTUATION AEROSOL INHALER RANITIDINE HCL ORAL Take 150 mg by 0 Active mouth 2 times daily. ZOFJADXA-GZT-OGOAHL-VIT Take 3 Tabs by 0 Active C-HYAL ORAL mouth once daily. ASPIRIN (ASPIR-81 ORAL) Take 81 mg by 0 Active mouth once daily. MULTIVIT Take 1 Cap by 0 Active &MINERALS/FERROUS FUM mouth once daily. (MULTI VITAMIN ORAL) TRIAMTERENE-HYDROCHLORO Take by mouth. 0 Active THIAZID ORAL cholecalciferol Take 2,000 Units 0 Active (VITAMIN D-3) 2,000 by mouth once unit capsule daily. ascorbic acid (VITAMIN Take 500 mg by 0 Active C) 500 mg tablet mouth once daily. LEVALBUTEROL TARTRATE Inhale 45 mcg by 0 Active (XOPENEX HFA INHL) mouth. levalbuterol (XOPENEX) Inhale 1 Neb via 0 Active 1.25 mg/3 mL nebulizer a nebulizer every solution 4 hours if needed. acetaminophen (TYLENOL Take 1,000 mg by 0 01/03/2022 Active EXTRA STRGTH) 500 mg mouth every 6 tablet hours if needed. Symbicort 160-4.5 INHALE 2 PUFFS BY 0 10/22/2021 Active mcg/actuation (160-4.5 MOUTH TWICE A DAY mcg each actuation) inhaler ibuprofen (ADVIL; Take 600 mg by 0 01/03/2022 Active MOTRIN) 200 mg tablet mouth every 6 hours if needed. pantoprazole (PROTONIX) Take 40 mg by 0 12/11/2021 Active 40 mg delayed-release mouth once daily. tablet potassium chloride Take 10 mEq by 0 12/02/2021 Active (K-DUR, KLOR-CON M10) mouth. 10 mEq tablet pravastatin (PRAVACHOL) Take 20 mg by 0 11/21/2021 Active 20 mg tablet mouth at bedtime. Active Problems Problem Noted Date THRUSH 08/30/2004 [...] Assigned at Date Recorded Not on file Obstetrics History Last Filed Vital Signs Vital [...] Only Solo Pollock MD [address] [place] [address] (Wo rk) Health Maintenance Due [...] 09/09/2021, 021, Booster for Pfizer series) 08/17/2020, [place] l history exists Influenza for age 65+ [...] Organization Address City/State/ZIP Code Phon e Number [facility] [address] [place] [address] LABORATORY-CENTRAL 2000 LABORATORY PATH BREAST CORE BIOPSY (12/27/2021 10:40 AM CDT) Component Value Ref Test Analysis Performed At [facility] gist Range Method Time Signature Case Report Pathology Report ?Case: [id number] ? 12/30/2021 [facility] Authorizing Provider: ??Unkn own, Doctor ?Collected: ? 12/27/2021 1040 ? 12:06 PM HEAL TH Ordering Location: ? L CENTRAL LAB ?Received: ?12/27/20212025 ? CDT TATIANNA LUKE-Dilshad Pathologist: ? Zach Davila MD ? ENTRAL Specimens: ?? A) - Left [address] st Core Ultrasound Biopsy ? LABORATORY ? [...] confirmed on tissue sections. LABORATORY Additional 12/30/2021 IRENEINA Information Interpreted at [facility] Laboratory, Central Laboratory - [address], [place] [address] 12:06 PM HEALTH CDT LABORATORY-C ENTRAL LABORATORY Specimen (Source) Anatomical Collection Method Collection Time Re ceived Time Location / / Volume Laterality Other (Left Breast 12/27/2021 10:40 12/27 8:26 Core Ultrasound AM CDT PM CDT Biopsy) Specimen 12/27/2021 10:50 12/27/2021 8:29 (specimen) (Left AM CDT PM CDT Breast Core Ultrasound Biopsy) Doctor Unknown PATHOLOGY/CYTOLOGY Performing Organization Address City/State/ZIP Code Phon e Number [facility] [address] [place] [address] LABORATORY-CENTRAL 1999 LABORATORY from Last 3 Months Insurance Payer Benefit Plan / Subscriber ID Effective Dates Phone Addre ss Type Group BLUE CROSS MR AMANDA LEWIS [id number] 2016-Present [address] [address] [place] AMANDA [place], [place] MR [place] ONLY [phone] Gypsy Garcia Personal/Family Self 1950 [address] (Home) [phone] [place], [place] (Work) [address] Care Teams Silk Screen Layout Drafter Relationship Specialty Start Date End Date Citlalli Roldan MD PCP - General Internal Medicine 08/05/141999 [place] [address]
== END 2022-03-10 07:51 | disposition home or self-care (01) ==
LOC: OP CLINIC 07:50
PROVIDERS: PCP Family Medicine; Visit Provider Internal Medicine Gastroenterology
DX: R10.13 Epigastric pain (principal); K22.89 Other specified disease of esophagus; K44.9 Diaphragmatic hernia without obstruction or gangrene; R12 Heartburn
CPT/HCPCS: 43239; 88305; J2250; J3010

== ENCOUNTER 2022-04-09 10:11 | Outpatient (CLI) | payer MEDICARE, BC, SELFPAY ==
--- OUTSIDE RECORDS SUMMARY | 2022-04-09 10:19 | XMS_ITS | Encounter Summary ---
:1950 Author Organization [facility] Address [address] [place] [address] Care Team Providers Name Role Phone Unavailable Primary Care Provider Unavailable Encounter Details Date Type Department Care Team Description 01/03/2022 Orders Only RST [facility]B [facility] OR Citlalli Corley, [address] [place], [place] [address] [phone] [phone] [place] [address] [place], [place] [phone] (Wo rk) Social History Tobacco Use Types [...] or relatives? How often do you attend samaritan or Not asked lutheran services? Do you belong to any clubs or Yes 12/25/2021 organizations such as samaritan groups, unions, fraternal or athletic groups, or [...]
--- OUTSIDE RECORDS SUMMARY | 2022-04-09 10:19 | XMS_ITS | Encounter Summary ---
:1950 Author Organization [facility] Address 200 [place] [address] Care Team Providers Name Role Phone Unavailable Primary Care Provider Unavailable Encounter Details Date Type Department Care Team Description 01/03/2022 Surgery RST [facility] OR Tori Arredondo PAROTIDECTOMY 1216 [facility] Humberto Cartwright SUPERFICIAL. [place], [place] 200 [facility] [address] [place], [place] [phone] (Wo rk) Social History Tobacco Use Types [...] or relatives? How often do you attend orthodox or Not asked lutheran services? Do you belong to any clubs or Yes 12/25/2021 organizations such as orthodox groups, unions, fraternal or athletic groups, or [...] place to sleep or slept in a detention (including now)? Education Answer Date Recorded What [...] PM CDT DISCHARGE SUMMARY BRIEF OVERVIEW Hospital: [facility] Discharge Provider: Tori Arredondo M.D. No primary [...] NERVE. Tori Arredondo M.D.Jesus Song M.D.Citlalli Corley M.D.Goates, Andrew J, M.D. RST ROMB OR [...] (FLONASE) 50 mcg/actuation nasal spray levalbuterol (XOPENEX) Inhale. 0 1.25 mg/3 mL nebulizer solution LORazepam (ATIVAN) 0.5 mg TAKE ONE TABLET BY 0 tablet MOUTH EVERY 6-8 HOURS NEEDED FOR ANXIETY. montelukast (SINGULAIR) 10 Take 10 mg by mouth 0 10/01/2021 mg tablet at bedtime. pantoprazole (PROTONIX) 40 Take 40 mg by mouth 0 12/11/2021 mg EC tablet daily. potassium chloride Take 10 mEq by 0 12/02/2021 (KLOR-CON M) 10 mEq ER mouth 2 (two) times tablet a day as needed. pravastatin (PRAVACHOL) 20 Take 20 mg by mouth 0 11/21/2021 mg tablet at bedtime. Symbicort 160-4.5 Inhale 2 puffs 2 0 10/22/2021 mcg/actuation inhaler (two) times a day. triamterene-hydroCHLOROthi Take 1 tablet by 0 azide (MAXZIDE-25) 37.5-25 mouth daily. mg per tablet acetaminophen (TYLENOL) Take 2 tablets 0 01/04/20 500 mg tablet (1,000 mg total) by mouth every 6 (six) hours as needed for pain. ibuprofen (ADVIL,MOTRIN) Take 3 tablets (600 0 200 mg tablet mg total) by mouth every 6 (six) hours as needed for pain. Take with food. oxyCODONE (ROXICODONE) 5 TAKE 1 TABLET BY 10 tablet 0 01/0301/03/2023 mg immediate release MOUTH EVERY FOUR tablet HOURS NEEDED FOR PAIN documented as of this encounter Progress Notes Patel Grady Pharm.D., R.Ph. - 01/03/2022 6:23 AM CDT [...] Mass Parotid Post-op Diagnosis Mass Parotid A first aid trainer actively participated and was necessary for one [...] Participated in [facility], 01/08/2022 [facility] -Pathology 1:03 PM [...] intraparenchymal and periglandular lymph nodes are identified. ??Information Technology Teacher tissue submitted for frozen and permanent sections. [...] [facility] - [address] [place], [place] [address] [facility] [place] [address] Laboratories-[facility] [address] documented in [...] (COMPLETED) 1331 (Given - Provider: Vicky Horne RLinnea) 1,000 mg, oral, Once, On Thu01/03/22 at 1345, For 1 dose ibuprofen tablet 600 mg (ADVIL,MOTRIN) (COMPLETED) 1331 (Given - Provider: Vicky Horne RLinnea) 600 mg, oral, Once, On Thu01/03/22 at [...]
--- OUTSIDE RECORDS SUMMARY | 2022-04-09 10:19 | XMS_ITS | Encounter Summary ---
:1950 Author Organization [facility] Address [address] [place] [address] Care Team Providers Name Role Phone Unavailable Primary Care Provider Unavailable Reason for Visit Outpatient (Routine) - Closed Specialty Diagnoses / Procedures Referred By Contact Refer red To Contact Otorhinolaryngology Citlalli Corley M.D. [address] [place] [phone] Referral ID Status Reason Start Date Expiration Date Visits Requ ested Visits Authorized [id number] Closed 01/03/2022 01/03/2023 1 1 Encounter Details Date Type Department Care Team Description 01/22/2022 Office Visit Department of Camille Arredondo Otorhinolaryngology in Tori Cartwright M.D. [place], [place] [address] [place] [address] (Primary Dx) [address] [place] [phone] Social History Tobacco Use Types Packs/Day Years [...] do you attend rastafarian or Not asked presybeterian services? Do you belong to any clubs or Clandestine Development 12/25/2021 organizations such as rastafarian groups, unions, fraPikhub or athletic groups, or school groups? How [...]
--- OUTSIDE RECORDS SUMMARY | 2022-04-09 10:19 | XMS_ITS | Encounter Summary ---
:1950 Author Organization [facility] Address [address] [place] [address] Care Team Providers Name Role Phone Unavailable Primary Care Provider Unavailable Encounter Details Date Type Department Care Team Description 01/03/2022 Anesthesia Event RST ROMB MAIN OR Abdoul Swartz M.D. [address] [place] [phone] [place] [address] Leonor Mcclelland, RVanessaNVanessa [address] [place] [phone] [place] [phone] Anesthesia Record Procedure Summary [...] h andoff to the receiving staff during [facility] we 1. Identified the patient 2. [...] N; 01/03/22 0831 by Incision; Neck; Left; Calreen Mccarthy dermabshon R.N. Closed/Suction Drain 01/03/22; 1034; Left; 01/03/22 [...] Location: Forearm; Removal Date: 01/03/22; Removal Time: 135 documented in this encounter Social History Tobacco [...] or relatives? How often do you attend shinto or Not asked jehovah's witness services? Do you belong to any clubs or Yes 12/25/2021 organizations such as shinto groups, unions, fraternal or athletic groups, or [...] place to sleep or slept in a usp (including now)? Education Answer Date Recorded What is the highest level of school Associate degree: mikoelliot herrera, 12/25/2021 you have completed or the highest technical, or vocational p eloy degree you have received? Sex Assigned at Date Recorded Female 12/25/2021 1:18 PM CDT documented as of this encounter OR Notes Anesthesia Postprocedure Evaluation - Manuel Bee M.D. - 01/03/2022 1:31 PM CDT Patient: Gypsy Tohmas Procedure Summary Date: 01/03/22 Room / Location: [place] [address] / [facility] in [place], [place] Anesthesia Start: 736 Anesthesia Stop: 1127 [...] ETT location: oral VL device: glide scope [place] scope blade size: 3 Adult tube size: [...] [K11.8] Pre-op diagnosis: Mass Parotid [K11.8]. Location: [place] [address] / [facility] in [place], [place] Providers: Tori Arredondo M.D. Pertinent components [...] with patient /legal guardian or through an asphalt patcher. The use of blood products not discussed [...] ETT location: oral VL device: glide scope [place] scope blade size: 3 Adult tube size: [...]
--- OUTSIDE RECORDS SUMMARY | 2022-04-09 10:19 | XMS_ITS | Encounter Summary ---
:1950 Author Organization [facility] Address [address] [place] [address] Care Team Providers Name Role Phone Unavailable Primary Care Provider Unavailable Reason for Referral Outpatient (Routine) - Closed Specialty Diagnoses / Procedures Referred By Contact Refer red To Contact Otorhinolaryngology Citlalli Corley M.D. 200 [place] [address] Referral ID Status Reason Start Date Expiration Date Visits Requ ested Visits Authorized [id number] Closed 01/03/2022 01/03/2023 1 1 Encounter Details Date Type Department Care Team Description 01/03/2022 Hospital Encounter RST ROMB MAIN OR Braeden Arredondo Parotid (Primary Dx); [address] [place] [address] Tori Cartwright M.D. Mass Parotid [place], [place] [address] [place] [phone] [place], [place] [phone] Social History Tobacco Use Types Packs/Day Years [...] or relatives? How often do you attend pentecostalism or Not asked christianity services? Do you belong to any clubs or Yes 12/25/2021 organizations such as pentecostalism groups, unions, fraternal or athletic groups, or [...] place to sleep or slept in a longterm (including now)? Education Answer Date Recorded What [...] CDT DISCHARGE SUMMARY BRIEF OVERVIEW Hospital: [facility] Discharge Provider: Tori Arredondo M.D. No [...] acetaminophen (TYLENOL) Take 2 tablets 0 01/04/20 22 500 mg tablet (1,000 mg total) by [...] of this encounter Progress Notes Patel Grady, D., R.Ph. - 01/03/2022 6:23 AM CDT Images [...] Parotid Post-op Diagnosis Mass Parotid A first front ventilator actively participated and was necessary for one [...] 01/08/2022 [facility] 1:03 PM CDT Participated in [facility], 01/08/2022 [facility] -Pathology 1:03 PM [...] intraparenchymal and periglandular lymph nodes are identified. ??Cleaner And Preparer tissue submitted for frozen and permanent sections. ??Grossed by Milvia Zion, M.D. -Pathology Resident. Block Summary A Left [...] Organization Address City/State/ZIP Code Phon e Number [facility] - [address] [place], [place] [address] [place] [address] Laboratories-[facility] [address] documented in this encounter [...] or score 7-10 of 10, Starting on 8/12/22 at 1148, For 1 dose, PACU (only) [...]
--- OUTSIDE RECORDS SUMMARY | 2022-04-09 10:19 | XMS_ITS | Encounter Summary ---
:1950 Author Organization [facility] Address [address] [place] [address] Care Team Providers Name Role Phone Unavailable Primary Care Provider Unavailable Reason for Visit Outpatient (Routine) - Closed Specialty Diagnoses / Procedures Referred By Contact Refer red To Contact Anesthesiology Diagnoses Mass Parotid Tori Arredondo M.D. [place] [address] [place] [phone] Referral ID Status Reason Start Date Expiration Date Visits Requ ested Visits Authorized [id number] Closed 12/31/2021 12/31/2022 1 1 Encounter Details Date Type Department Care Team Description 01/01/2022 Comprehensive Visit Preoperative Mark Arredondo M.D. [address] [place] [phone] Hypertension Essential Primary (Primary Dx); Evaluation Center in Abhishek Stroud M.D. [address] [place] [phone] Mass Parotid; [facility], [place] Asthma (HCC); [address] [place] [address] Preanesthetic [place] [phone] Social History Tobacco Use Types [...] or relatives? How often do you attend sabianist or Not asked temple services? Do you belong to any clubs or Yes 12/25/2021 organizations such as sabianist groups, unions, fraternal or athletic groups, or [...] highest level of school Associate degree: amador herrear, 12/25/2021 you have completed or the highest [...] with patient the Checklist for Surgical Patients [id number]. Written and verbal instructions given on medication management before surgery. RECOMMENDATIONS: Patient medically optimized for planned procedure: Yes Further Recommendations: see above documented in this encounter Plan of Treatment Not on filedocumented as of this encounter Visit Diagnoses Diagnosis Hypertension Essential Primary - Primary Mass Parotid Asthma (HCC) Preanesthetic Medical Exam documented in this encounter
--- OUTSIDE RECORDS SUMMARY | 2022-04-09 10:19 | XMS_ITS | Clinical Summary ---
:1950 Author Organization [facility] Address [address] [place] [address] Care Team Providers Name Role Phone Unavailable Primary Care Provider Unavailable Source Comments Patient records contain information from all sites at [facility]. For routine questions regarding patient records, call [phone] during business hours, M-F 8:00 AM - 5:00 PM Central Time. Record requests for emergency care only can be directed to [phone] at any time.[facility] Allergies Active Allergy Reactions Severity Noted Date [...] Active 1.25 mg/3 mL nebulizer solution montelukast Take 10 mg by 0 10/01/2021 Act batsheva (SINGULAIR) 10 mg mouth at tablet bedtime. pantoprazole Take 40 mg by 0 12/11/2021 Ac tive (PROTONIX) 40 mg EC mouth daily. tablet potassium chloride Take 10 mEq by 0 12/02/2021 Active (KLOR-CON M) 10 mEq ER mouth 2 (two) tablet times a day as needed. pravastatin Take 20 mg by 0 11/21/2021 Act batsheva (PRAVACHOL) 20 mg mouth at tablet bedtime. triamterene-hydroCHLOR Take 1 tablet by 0 12/17/2021 Active Othiazide (MAXZIDE-25) mouth daily. 37.5-25 mg per tablet LORazepam (ATIVAN) 0.5 TAKE ONE TABLET 0 11/22/2021 Active mg tablet BY MOUTH EVERY 6-8 HOURS NEEDED FOR ANXIETY. Symbicort 160-4.5 Inhale 2 puffs 2 0 10/22/2021 Active mcg/actuation inhaler (two) times a day. acetaminophen Take 2 tablets 0 01/03/2022 Active (TYLENOL) 500 mg (1,000 mg total) tablet by mouth every 6 (six) hours as needed for pain. ibuprofen Take 3 tablets 0 01/03/2022 Acti ve (ADVIL,MOTRIN) 200 mg (600 mg total) tablet by mouth every 6 (six) hours as needed for pain. Take with food. 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 Pleomorphic (Pr imary Dx) from Last 3 Months Family History Medical [...] do you attend adventist or Not asked evangelical services? Do you belong to any clubs [...] 2) 2001 Depression Screening (Annual 05/25/2021 PHQ-2) Creatinine Level 12/31/2022 12/31/2021 Potassium Level 12/31/2022 12/31/2021 Sodium Level 12/31/2022 12/31/2021 Office Visit for Blood Pressure 01/01/2023 01/01/2022 Check / Re-check Fasting Glucose for Diabetes 12/31/2024 12/31/2021 Screening DTaP,Tdap,and Td Vaccines (3 - Td 04/02/2030 04/02/2020, or Tdap) Pneumococcal vaccine (65+ years) Completed 12/23/2018, 11/2016 Fall Risk Screen (Annual) Completed 01/03/2022 COVID-19 Vaccine Completed 02/27/2022, 09/09/2021, 03/04/2021, Additional history exists Influenza Vaccine Completed 02/27/2022, 03/04/2021, 04/02/2020, Additional history exists Medical Devices Implanted Type Area Plumber'S Helper Device Shelf Model / Identifier Expiration Serial / Date Lot Breast Implant Breast Breast Implant Description: 2 very small titanium piece s from breast biopsy Insurance Payer Benefit Plan Subscriber ID Effective Phone Address Typ e / Group Dates MEDICARE MEDICARE A [id number] 2016-Pre [address] Medicare AND B magan TylerSHEKHAR [phone] BLUE CROSS BCBS YUROK [id number] 2016-Pres [phone] PO ALEXANDER X Cost Share BLUE SHIELD BLUE COST ent [phone] [place] [address]
--- OUTSIDE RECORDS SUMMARY | 2022-04-09 10:20 | XMS_ITS | Encounter Summary ---
:1950 Author Organization [facility] Address [address] [place] [address] Care Team Providers Name Role Phone Unavailable Primary Care Provider Unavailable Reason for Visit Outpatient (Routine) - Closed Specialty Diagnoses / Procedures Referred By Contact Refer red To Contact Allergy and Immunology Diagnoses Mass Parotid Tori Arredondo, [facility] Humberto [address] [place] [phone] Referral ID Status Reason Start Date Expiration Date Visits Requ ested Visits Authorized [id number] Closed 12/31/2021 12/31/2022 1 1 Encounter Details Date Type Department Care Team Description 01/01/2022 Comprehensive Visit Division of Nash Zapata Aller gy Drug Initial (Primary Dx); Allergic Diseases M.D. Mass Parotid; in [address] Allergy Food Initial [place], [place] [address] [place] [phone] [place], [place] [phone] (Work) [phone] Social History Tobacco Use Types Packs/Day Years [...] or relatives? How often do you attend methodist or Not asked protestant services? Do you belong to any clubs or Truevision 12/25/2021 organizations such as methodist groups, unions, fraPrecyse or athletic groups, or school groups? How [...] Liver Disease 05/25/2014 Migraine Headache 05/25/1987 Osteopenia Pneumonia 05/25/1987 Polyp Colon 05/25/2017 Allergies Allergen [...]
--- OUTSIDE RECORDS SUMMARY | 2022-04-09 10:20 | XMS_ITS | Encounter Summary ---
:1950 Author Organization [facility] Address [address] [place] [address] Care Team Providers Name Role Phone Unavailable [...] do you attend buddhist or Not asked synagogue services? Do you belong to any clubs or Yes 12/25/2021 organizations such as buddhist groups, unions, fraternal or athletic groups, or [...] place to sleep or slept in a fdc (including now)? Education Answer Date Recorded What [...]
--- OUTSIDE RECORDS SUMMARY | 2022-04-09 10:20 | XMS_ITS | Encounter Summary ---
:1950 Author Organization [facility] Address [address] [place] [address] Care Team Providers Name Role Phone Unavailable Primary Care Provider Unavailable Reason for Visit Reason Comments Appointment Encounter Details Date Type Department Care Team Description 12/23/2021 Clinical Communication Central Appointment Linda palma Appointment Office in [facility] [place] 200 [place], [place] [phone] Social History Tobacco Use Types Packs/Day Years [...] do you attend druze or Not asked jewish services? Do you [...] slept in a senior care (including now)? Sex Assigned at Date Recorded [...] updated and she can be reached at [phone]. Thank you, Online Services for Referring Providers documented in this encounter Plan of Treatment Not on filedocumented as of this encounter Visit Diagnoses Not on filedocumented in this encounter Additional Health Concerns Infection Onset Date Last Indicated Resolved Time COVID19 Pending 12/31/2021 12/31/2021 12/31/2021 5:56 PM CDT documented as of this encounter
--- OUTSIDE RECORDS SUMMARY | 2022-04-09 10:20 | XMS_ITS | Encounter Summary ---
:1950 Author Organization [facility] Address [address] [place] [address] Care Team Providers Name Role Phone Unavailable Primary Care Provider Unavailable Reason for Visit Reason Comments Allergy Testing Outpatient (Routine) - Closed Specialty Diagnoses / Procedures Referred By Contact Refer red To Contact Diagnoses Mass Parotid Tori Arredondo M.D. [facility] Procedures Penicillin Skin Test [address] [place] [address] [phone] Referral ID Status Reason Start Date Expiration Date Visits Requ ested Visits Authorized [id number] Closed 12/31/2021 12/31/2022 1 1 Encounter Details Date Type Department Care Team Description 01/01/2022 Clinical Support Division of Allergic Tori Arredondo M.D. [address] [place] [address] [phone] [place] Parotid Diseases in [place], [place], [place] [address] [place] [phone] [place] [address] [place] [address] [phone] Social History Tobacco Use Types Packs/Day [...] or relatives? How often do you attend hinduism or Not asked congregational services? Do you belong to any clubs or Yes 12/25/2021 organizations such as hinduism groups, unions, fraternal or athletic groups, or [...] of this encounter Procedure Notes Genesis Medina, R.N. - 01/01/2022 12:45 PM CDTAssociated Order(s): ALI PENICILLIN SKIN TEST Images from the original note were not included. Penicillin and other antibiotic skin test Flowsheet Row Clinical Support from 01/01/2022 in Division of Allergic Diseases in [place], [place] Penicillin and other antibiotics (Prick) P [...] - 01/01/2022 12:45 PM CDT Genesis Medina RVanessaN. ? 01/01/2022 ??1:24 PM Penicillin and other antibiotic skin norma t ?? Flowsheet Row Clinical Support from 01/01 in Division of [facility]ergic Diseases [facility] [place] Pen[facility] and other antibiotics (Prick) ?? [...]
--- OUTSIDE RECORDS SUMMARY | 2022-04-09 10:20 | XMS_ITS | Encounter Summary ---
:1950 Author Organization [facility] Address [address] [place] [address] Care Team Providers Name Role Phone Unavailable Primary Care Provider Unavailable Reason for Referral Outpatient (Routine) - Closed Specialty Diagnoses / Procedures Referred By Contact Refer red To Contact Diagnoses Mass Parotid Tori Arredondo M.D. [facility] Procedures Penicillin Skin Test 200 [place] [phone] Referral ID Status Reason Start Date Expiration Date Visits Requ ested Visits Authorized [id number] Closed 12/31/2021 12/31/2022 1 1 Outpatient (Routine) - Closed Specialty Diagnoses / Procedures Referred By Contact Refer red To Contact Allergy and Immunology Diagnoses Mass Parotid Tori Arredondo [place] M.D. 200 [place] [phone] Referral ID Status Reason Start Date Expiration Date Visits Requ ested Visits Authorized [id number] Closed 12/31/2021 12/31/2022 1 1 Outpatient (Routine) - Closed Specialty Diagnoses / Procedures Referred By Contact Refer red To Contact Anesthesiology Diagnoses Mass Parotid Tori Arredondo M.D. [facility] 200 [place] [phone] Referral ID Status Reason Start Date Expiration Date Visits Requ ested Visits Authorized [id number] Closed 12/31/2021 12/31/2022 1 1 Outpatient (Routine) - Closed Specialty Diagnoses / Procedures Referred By Contact Refer red To Contact Diagnoses Tori Trujillo M.D. [facility] Procedures ECG 12 Lead 200 [place] [phone] Referral ID Status Reason Start Date Expiration Date Visits Requ ested Visits Authorized [id number] Closed 12/31/2021 12/31/2022 1 1 Reason for Visit Outpatient (Routine) - Closed Specialty Diagnoses / Procedures Referred By Contact Refer red To Contact Otorhinolaryngology Diagnoses [place] Parotid Krishna Ma, [facility] [place] 1999 [place] [address] Referral ID Status Reason Start Date Expiration Date Visits Requ ested Visits Authorized [id number] Closed 12/17/2021 12/17/2022 1 1 Encounter Details Date Type Department Care Team Description 12/31/2021 Comprehensive Visit Department of Braeden Arredondo Otorhinolaryngology in Tori Cartwright [place], [place] 200 [facility] 200 [place] [phone] [place], [place] [phone] Social History Tobacco Use Types Packs/Day Years [...] or relatives? How often do you attend oriental orthodox or Not asked congregation services? Do you belong to any clubs or Yes 12/25/2021 organizations such as oriental orthodox groups, unions, fraLivQuik or athletic groups, or school groups? How [...] or slept in a penitentiary (including now)? Education Answer Date Recorded What [...] referred for evaluation today by their local petrography teacher. SUBJECTIVE CHIEF COMPLAINT/PURPOSE OF VISIT: Left parotid [...] Friends and Family: Once a week Attends Orthodox Services: Not on file Active Member of [...] is normal. OP: No masses or ulcers. [place] tonsilsare present and are 1+. Parotid/Neck: There is a 1 cm mobile, soft, nontender mass in the left tail of parotid. Skin: No rashes or lesions. Nose: Patent, mucosa is moist, no masses, lesions or mucopurulence noted. BALANCE WEIGHER: No masses. Torus tubarius normal. Symmetric fossa [...] 01/01 in Division of Allergic Diseases in [facility] a Penicillin and other antibiotics (Prick) [...] PCR, Varies Asymptomatic (12/31/2021 1:21 PM CDT) [facility] gist Method Time Signature COVID-19, Swab, 12/31/2021 [...] ----ADDITIONAL INFORMATION---- This RT-PCR test using the We[employer] SARS-Co V-2 Assay ( ViVu.) performed on the WePay Two Module System has received Emergency Use Authorization (EUA) by the U.S. Food and Drug Administration, and is modified from the knockdown man's instructions with a bridging study. Performance characteristics were verifie d by [facility] in a manner consistent with CLIA requirements. Visit the CDC website: https://www.cdc.g ov/coronavirus/ for the most recent guidelines on Dempsey virus testing. Fact Sheet for Healthcare Providers: https://www.fda.gov/media/580178/downloa d Fact Sheet for Patients: https://www.fda.gov/media/338489/downloa d Specimen Anatomical Collection Method Collection Time Receive d Time (Source) Location / / Volume Laterality Varies 12/31/2021 1:21 PM 2 1:47 (Nasopharynx) CDT PM CDT Tori Arredondo M.D. LAB MICROBIOLOGY - GENERAL O ZAHRAERABLES Performing Organization Address City/State/ZIP Code Phon e Number [facility] - [address] [place], [place] [address] [place] [address] [facility] 200 [facility] ECG 12 Lead (12/31/2021 1:01 PM CDT) athologist Signature Ventricular Rate 75 BPM MUSE ECG/Min CT Interval 170 ms MUSE QRSD Interval 96 ms MUSE QT Interval 394 ms MUSE QTC Interval 439 ms MUSE P Langley 64 degrees MUSE R Langley 95 degrees MUSE T Wave Langley 68 degrees MUSE Specimen Anatomical Collection Method [...] Address City/State/ZIP Code Phon e Number MUSE HAYDE NA CBC with Differential, Blood (12/31/2021 11:24 [...] City/State/ZIP Code Phon e Number [facility] - [address] [place] [address] [place] [address] [facility] 200 [facility] Basic Metabolic Panel (12/31/2021 11:24 AM [...] 12/31/2021 DTL Black/ mL/min/BSA 12:28 PM CDT Moroccan Comment: ----ADDITIONAL INFORMATION---- Estimated GFR calculated using [...] City/State/ZIP Code Phon e Number [facility] - [address] [place], [place] [address] [place] [address] [facility] [address] documented in this encounter Visit Diagnoses Diagnosis Mass Parotid Mass Parotid documented in this encounter
--- OUTSIDE RECORDS SUMMARY | 2022-04-09 10:20 | XMS_ITS | Encounter Summary ---
:1950 Author Organization [facility] Address [address] [place] [address] Care Team Providers Name Role Phone Unavailable Primary Care Provider Unavailable Encounter Details Date Type Department Care Team Description 12/31/2021 Hospital Encounter Department of Tori Arredondo Laboratory Medicine and H[place]to [facility] Path[facility], [address] [phone] [place] [address] [place] [phone] Social History Tobacco Use Types [...] or relatives? How often do you attend yazidism or Not asked jehovah's witness services? Do you belong to any clubs or Yes 12/25/2021 organizations such as yazidism groups, unions, fraternal or athletic groups, or [...] place to sleep or slept in a chcf (including now)? Education Answer Date Recorded What is the highest level of school Associate degree: amador herrera, 12/25/2021 you have completed or the highest technical, or vocational p eloy degree you have received? Sex Assigned at Date Recorded Female 12/25/2021 1:18 PM CDT documented as of this encounter Medications at Time of Discharge Medication Sig Dispensed Refills Start Date End Date acetaminophen (TYLENOL) Take 2 tablets 0 01/04/20 [...] for pain. Take with food. levalbuterol (XOPENEX) Inhale. 0 1.25 mg/3 mL [...] (MAXZIDE-25) 37.5-25 mouth daily. mg per tablet oxyCODONE (ROXICODONE) 5 Take 1 tablet (5 mg 10 tablet 0 01/03/2022 mg immediate release total) by mouth tabletIndications: Acute every 4 (four) Pain hours as needed for severe pain or score 7-10 of 10 Indication: Acute Pain. documented as of this encounter Plan of [...] Organization Address City/State/ZIP Code Phon e Number [facility] - [address] [place] [phone] [employer] [place] [place] [address] [facility] 200 [facility] Basic Metabolic [...] 12/31/2021 DTL Black/ mL/min/BSA 12:28 PM CDT Bhutanese Comment: ----ADDITIONAL INFORMATION---- Estimated GFR calculated using [...] Organization Address City/State/ZIP Code Phon e Number [facility] - [address] [place], [place] [address] [employer] [facility] [place] [place] [address] [facility] [address] documented in this encounter Visit Diagnoses Diagnosis Mass Parotid documented in this encounter Additional Health Concerns Infection Onset Date Last Indicated Resolved Time COVID19 Pending 12/31/2021 12/31/2021 12/31/2021 5:56 PM CDT documented as of this encounter
--- OUTSIDE RECORDS SUMMARY | 2022-04-09 10:20 | XMS_ITS | Encounter Summary ---
:1950 Author Organization [facility] Address [address] [place] [address] Care Team Providers Name Role Phone Unavailable Primary Care Provider Unavailable Encounter Details Date Type Department Care Team Description 12/31/2021 Orders Only Division of Allergic Nash Zapata [facility] Drug Personal Diseases in [place] (Primary Dx) [address] [phone] Social History Tobacco Use Types Packs/Day Years [...] do you attend hinduism or Not asked anglican services? Do you belong to any clubs [...]
--- OUTSIDE RECORDS SUMMARY | 2022-04-09 10:20 | XMS_ITS | Encounter Summary ---
:1950 Author Organization [facility] Address [address] [place] [address] Care Team Providers Name Role Phone Unavailable Primary Care Provider Unavailable Reason for Referral Outpatient (Routine) - Closed Specialty Diagnoses / Procedures Referred By Contact Refer red To Contact Otorhinolaryngology Diagnoses Mass Parotid Krishna Ma [place] M.D. 1999 [place] [address] Referral ID Status Reason Start Date Expiration Date Visits Requ ested Visits Authorized [id number] Closed 12/17/2021 12/17/2022 1 1 Encounter Details Date Type Department Care Team Description 12/17/2021 [facility] Braeden Ma Parotid (Primary AND CLINICS Krishna Jain M.D. Dx) 1999 [facility] 1999 [place] [address] [place], [place] [phone] Social History Tobacco Use Types Packs/Day Years [...] or relatives? How often do you attend moravian or Not asked latter-day services? Do you belong to any clubs or Yes 12/25/2021 organizations such as moravian groups, unions, fraternal or athletic groups, or [...] or slept in a fpc (including now)? Sex Assigned at Date Recorded [...]
--- OUTSIDE RECORDS SUMMARY | 2022-04-09 10:20 | XMS_ITS | Encounter Summary ---
:1950 Author Organization [facility] Address [address] [place] [address] Care Team Providers Name Role Phone Unavailable Primary Care Provider Unavailable Reason for Visit Reason Comments Pre-visit Intake Encounter Details Date Type Department Care Team Description 12/26/2021 Clinical Communication Visit Review in Pr e-visit Intake [place], [place] 200 [place], [place] [phone] Social History Tobacco Use Types Packs/Day Years [...] do you attend yazidi or Not asked islam services? Do you belong to any clubs [...]
--- OUTSIDE RECORDS SUMMARY | 2022-04-09 10:20 | XMS_ITS | Encounter Summary ---
:1950 Author Organization [facility] Address [address] [place] [address] Care Team Providers Name Role Phone Unavailable Primary Care Provider Unavailable Reason for Visit Reason Comments OSM Encounter Details Date Type Department Care Team Description 12/23/2021 Clinical Department of ASAD Arredondo Otorhinolaryngology in Tori Cartwright [place], [place] 200 [facility] 200 [place] [address] [place], [place] [phone] Social History Tobacco Use Types Packs/Day Years [...] do you attend temple or Not asked denominational services? Do you [...] to sleep or slept in a senior living (including now)? Sex Assigned at Date Recorded Female 12/25/2021 1:18 PM CDT documented as of this encounter Miscellaneous Notes Telephone Encounter - Radha Farnsworth - 12/25/2021 4:12 PM CDT Imaging received and viewable in [employer]. Report uploaded to chart and viewable in Document Viewer dated 12/25/2021. Radha Telephone Encounter - Radha Farnsworth - 12/25/2021 8:47 AM CDT Faxed request to [facility] at [phone]. Request[address] CT imaging from 10/2021. Thanks Radha [...] completed (at minimum, the City and State)? [facility] Does the patient/referrer know the phone number? Yes If yes, please provide: [phone] 2) Has the patient had any additional [...] for OSM was sent to the following Facilities([place] include the fax number): Had not sent a request As OSM is received, please make sure to note this communication so that everyone is aware of anything that we might still be missing. documented in this encounter Plan of Treatment Not on filedocumented as of this encounter Visit Diagnoses Not on filedocumented in this encounter
[2022-04-09 10:26] VITALS: BP 132/78; PULSE 65; RESP 16; O2SAT 98
[2022-04-09] MEDS: TETRACAINE 0.5% OPHTH 1 DROP EYE-BOTH ×3 (10:35→11:12)
[2022-04-09] MEDS: BRIMONIDINE TARTRATE 0.2% OPHTH 1 DROP EYE-BOTH ×2 (10:37→11:23)
--- NOTE | 2022-04-09 12:13 | P.OPTPRC_ITS ---
Procedure Note Date of procedure: 04/09/22 Will [facility] bill your pro fee for this procedure?: Yes Procedure Description: SURGEON: Nataliya Roper MD PREOPERATIVE DIAGNOSIS: Posterior capsular opacity, right and left eye POSTOPERATIVE DIAGNOSIS: Posterior capsular opacity, right and left eye PROCEDURE: YAG laser capsulotomy, both eyes ANESTHESIA: Topical. ESTIMATED BLOOD LOSS: None PATHOLOGY SPECIMEN: None COMPLICATIONS: None INDICATIONS: See consult note for details. The risks, benefits and alternatives of the procedure were explained to the patient, who elected to proceed and signed informed consent to do so. PROCEDURE: The patient was brought to the pre-holding area where the right and left eyes were identified as the operative eyes. I placed my initials above the eyes. The following was given in both eyes: The patient received 2 sets of 1 drop of 0.5% tetracaine and 1 drop of 1% tropicamide. They also received 1 drop of 0.2% brimonidine. They received 1 drop of 0.5% tetracaine immediately prior to bringing them back for the procedure. The patient was then brought to the procedure room where the right and left eyes were again identified as the operative eyes. A YAG Rip capsulotomy lens was placed on the right eye. The laser was administered using a total number of 13 shots with an energy of 2.4 mJ per shot for a total energy of 31 mJ. The patient tolerated the procedure well. A YAG Rip capsulotomy lens was placed on the left eye. The laser was administered using a total number of 18 shots with an energy of 2.4 mJ per shot for a total energy of 43 mJ. The patient tolerated the procedure well. DISPOSITION: The patient was taken back to the pre-holding area and given 1 drop of 0.2% brimonidine in both eyes. They were discharged to home in stable condition. The patient was instructed to call me or go to the emergency department with any sudden change, including dramatic loss of vision, severe pain in the eye or eyebrow region, nausea, or vomiting. The patient was instructed to use the 0.2% brimonidine 1 drop 2 times a day in both eyes for 1 week. The patient will follow up in the clinic in 1-2 weeks. Surgeon: Nataliya Roper MD
== END 2022-04-09 11:24 | disposition home or self-care (01) ==
LOC: OP CLINIC 10:11 → EYE PRC 10:21
PROVIDERS: PCP Family Medicine; Visit Provider Ophthalmology
DX: H26.9 Unspecified cataract (principal)
CPT/HCPCS: 66821; A9270

== ENCOUNTER 2023-02-09 13:27 | Outpatient (CLI) | payer MEDICARE, BC, SELFPAY ==
--- NOTE | 2023-02-09 13:40 | CRLHL7_ITS ---
For Patients: As a result of the Century Cures Act, medical imaging exams and procedure reports are released immediately into your electronic medical record. You may view this report before your referring provider. If you have questions, please contact your health care provider. BILATERAL SCREENING MAMMOGRAM WITH COMPUTER-AIDED DETECTION AND TOMOSYNTHESIS TECHNIQUE: CC and MLO views were obtained. These mammographic images have been obtained using full-field digital technique. These mammographic images were interpreted with the benefit of computer-aided detection. Breast Tomosynthesis was used in this interpretation. COMPARISON FILM: 12/24/21, 12/19/21, 11/08/20. FINDINGS: The breasts are heterogeneously dense, which may obscure small masses IMPRESSION: There is no radiographic evidence for malignancy. ASSESSMENT: BI-RADS Category 2: Benign RECOMMENDATION: Routine screening mammogram in 1 year. A lay language report of this examination will be provided to the patient. Zach Grier M.D. Diagnostic Radiologist [email or web address] ASHLEY/Dictated by: Zach Grier MD @ 02/10/2023 8:16:00 AM (Electronically Signed)
== END 2023-02-09 13:28 | disposition home or self-care (01) ==
LOC: MAMMO 13:29
PROVIDERS: PCP Family Medicine; Visit Provider Family Medicine
DX: Z12.31 Encounter for screening mammogram for malignant neoplasm of breast (principal); R92.2 Inconclusive mammogram
CPT/HCPCS: 77063; 77067

== ENCOUNTER 2023-03-15 23:21 | Emergency (ER) | payer MEDICARE, BC, SELFPAY ==
[2023-03-15 23:30] VITALS: BP 168/75; PULSE 94; RESP 24; TEMP 36.8; O2SAT 98; BMI 26.6
--- NOTE | 2023-03-15 23:44 | ED.GENADULT ---
HPI - General Adult General Chief complaint: Asthma Stated complaint: Asthma complications, shortness of breath Time Seen by Provider: 03/15/23 23:29 History of Present Illness HPI narrative: CC: Cough, Shortness of Breath pt. with h/o asthma. around 1630, started to become short of breath. took rescue inahler and nebulizers with little relief. denies fevers , n/v, diarrhea . 73-year-old woman presenting to the emergency department concern of increasing shortness of breath over the afternoon. Does have an underlying history of asthma. Minimal relief from rescue inhaler nebulization. Says she had a fever of 100.5. ?feel like horse shit As I ask, does remember that she was around people last weekend. When asked about COVID or influenza then wonders if she may have been exposed. Related Data Home Medications Medication Instructions Recorded Confirmed ascorbic acid (vitamin C) 500 mg 500 mg PO DAILY 11/19/21 03/15/23 tablet aspirin 81 mg tablet,delayed 81 mg PO QDAY 11/19/21 03/15/23 release calcium carbonate 200 mg calcium 200 mg PO .As Needed PRN 11/19/21 03/15/23 (500 mg) chewable tablet fluticasone propionate 50 1 spray intranasal DAILY 11/19/21 03/15/23 mcg/actuation nasal spray,suspension lorazepam 0.5 mg tablet (Ativan) 0.5 mg PO TID PRN 11/22/21 03/15/23 montelukast 10 mg tablet 10 mg PO HS 03/15/23 03/15/23 pravastatin 20 mg tablet 20 mg PO HS 03/15/23 03/15/23 budesonide-formoterol HFA 160 1 puff inhalation BID 03/17/23 mcg-4.5 mcg/actuation aerosol inhaler (Symbicort) Previous Rx's Medication Instructions Recorded potassium chloride 10 mEq 10 meq PO BID PRN hypokalemia #180 05/02/22 tablet,extended release(part/cryst) tabs albuterol sulfate 90 mcg/actuation 2 inh inhalation Q6-8H PRN 05/03/22 aerosol inhaler shortness of breath or wheezing #8.5 grams levalbuterol HCl 1.25 mg/3 mL 1.25 mg (3 mL) inhalation TID PRN 12/10/22 solution for nebulization shortness of breath or wheezing #90 mL triamterene 37.5 1 tab PO DAILY #90 tabs 05/03/22 mg-hydrochlorothiazide 25 mg tablet pantoprazole 40 mg tablet,delayed 40 mg PO QDAY #90 tabs 12/09/22 release (Protonix) ipratropium 0.5 mg-albuterol 3 mg 3 ml inhalation TID #90 mL 03/16/23 (2.5 mg base)/3 mL nebulization soln nirmatrelvir 300 mg (150 mg See Rx Instructions PO .COMPLEX #6 03/16/23 x2)-ritonavir 100 mg tablet,dose tabs pack (Paxlovid) prednisone 20 mg tablet 40 mg (2 x 20 mg) PO DAILY 4 days 03/16/23 #8 tabs Allergies Allergy/AdvReac Type Severity Reaction Status Date / Time Cephalosporins Allergy Severe throat Verified 03/15/23 23:33 swelling triamcinolone Allergy Severe throat Verified 03/15/23 23:33 swells shut penicillin V Allergy Mild Hives Verified 03/15/23 23:33 lovastatin Allergy Unknown Hives Verified 03/15/23 23:33 psyllium AdvReac Unknown Verified 03/15/23 23:33 Molds & Smuts Allergy Severe Uncoded 01/27/23 13:13 Erythromycin Allergy Unknown Hives Uncoded 01/27/23 13:13 Review of Systems Status of ROS: Reports: 6 or more systems reviewed and unremarkable except as noted in History and below [facility] Medical History Hx of malignant neoplasm of parotid gland ?Z85.818 - Personal history of malignant neoplasm of other sites of lip, oral cavity, and pharynx (ICD-10) Mass of parotid gland ?K11.8 - Other diseases of salivary glands (ICD-10) Laryngeal spasm ?J38.5 - Laryngeal spasm (ICD-10) History of colonic polyps (06/13/10) ?Z86.010 - Personal history of colonic polyps (ICD-10) Exacerbation of asthma ?J45.901 - Unspecified asthma with (acute) exacerbation (ICD-10) Surgical History S/P vaginal hysterectomy ?Z90.710 - Acquired absence of both cervix and uterus (ICD-10) S/P nasal polypectomy ?Z98.890 - Other specified postprocedural states (ICD-10) S/P arthroscopic knee surgery ?Z98.890 - Other specified postprocedural states (ICD-10) Status post cataract extraction ?Z98.49 - Cataract extraction status, unspecified eye (ICD-10) History of dilation and curettage (06/13/10) ?Z98.890 - Other specified postprocedural states (ICD-10) History of cholecystectomy (06/13/10) ?Z90.49 - Acquired absence of other specified parts of digestive tract (ICD-10) Social History Smoking Status: Smoker, status unknown Do you use any of these nicotine containing products: None Second hand tobacco smoke exposure: No How often do you have a drink containing alcohol: never AUDIT-C Alcohol total score: 0 Non-prescribed substance use: denies use Exam Narrative: Exam Narrative: Seems uncomfortable. A little hard of hearing. Mildly tachypneic. No major distress. Heart in an elevated rate with regular rhythm. Extremities are well perfused without edema. Wheeze and crepitus in bilateral mid and lower chest. Cranial nerves 2-12 intact. Speaking easily in full sentences. Skin is warm and dry. Const: Vital Signs, click to edit/add: Vital Signs - 24 hr 03/15/23 23:30 Temperature 98.2 F Pulse Rate [Right Pulse Oximeter] 94 Respiratory Rate 24 Blood Pressure [Ri ght Upper Arm] 168/75 H Pulse Oximetry 98 Oxygen Delivery Me thod Room Air Documenting provider has reviewed patient's vital signs: yes Course Vital Signs Vital signs: Initial Vital Signs Temperature 98.2 F 03/15/23 23:30 Temperature Source Temporal Artery Scan 03/15/23 23:30 Pulse Rate 94 03/15/23 23:30 Respiratory Rate 24 03/15/23 23:30 Blood Pressure 168/75 H 03/15/23 23:30 Blood Pressure Mean 106 H 03/15/23 23:30 Blood Pressure Position Sitting 03/15/23 23:30 Pulse Oximetry 98 03/15/23 23:30 Oxygen Delivery Method Room Air 03/15/23 23:30 Vital Signs Temperature 98.2 F 03/15/23 23:30 Pulse Rate 94 03/15/23 23:30 Respiratory Rate 24 03/15/23 23:30 Blood Pressure 168/75 H 03/15/23 23:30 Pulse Oximetry 98 03/15/23 23:30 Oxygen Delivery Method Room Air 03/15/23 23:30 Temperature 98.4 F 03/16/23 02:21 Pulse Rate 84 03/16/23 02:21 Respiratory Rate 24 03/16/23 02:21 Blood Pressure 135/74 03/16/23 02:21 Pulse Oximetry 98 03/16/23 02:16 Oxygen Delivery Method Room Air 03/16/23 02:16 Medical Decision Making MDM Narrative Medical decision making narrative: Given history would presume some degree of asthma exacerbation. She denies COPD. I suppose CHF is possibility too. With her reported fever though also screen for COVID and influenza and RSV. Chest better after duonebs though says she feels like ?horse shit?. Patient took an Ativan prior to arrival. Admits just needs to relax. We did appreciate some degree of anxiety here and was given another dose along with prednisone. Less wheeze on reauscultation. She does note numerous episodes of pneumonia. I did request one view chest x-ray. Reviewed by me shows no acute infiltrate. Was positive ultimately for COVID. Vitals are stable. Age and comorbidities would qualify for Paxlovid I think. Reviewing records shows mildly elevating creatinine historically. Last measured at 1. No medication interactions as I reviewed. Discussed with pharmacist later; probably better to reduce Paxlovid dosing. See patient discharge plan Medical Records Medical records reviewed: Yes I reviewed the patient's medical records Lab Data Lab results reviewed: Yes I reviewed the patient's lab results Labs: Lab Results 03/15/23 Range/Units 23:49 SARS-CoV-2 (PCR) POSITIVE SARS-CoV-2 A (Negative) Influenza Type A (PCR) Negative PCR FLU A (Negative) Influenza Type B (PCR) Negative PCR FLU B (Negative) RSV (PCR) Negative PCR RSV (Negative) Discharge Plan Discharge Clinical Impression: Asthma exacerbation, COVID-19 Patient Disposition: Home w/ Parent or Adult Condition: Improved Additional Instructions: Do stay well-hydrated. I am sorry, we do not have the medications you need in the [facility] other than the prednisone. You had enough prednisone for today. Prednisone, Paxlovid, DuoNebs are sent to your pharmacy. You might consider using the DuoNebs regularly over the next 3-4 days at 3 times daily. If you begin to have increasing and persistent shortness of breath not relieved with the nebulization, get an oxygen monitor and return to the emergency department for oxygen saturations are 90% or less. I would still quarantine for 10 days from the 1st day of your symptoms. Prescriptions: New Paxlovid 300 mg (150 mg x 2)-100 mg tablets,dose pack See Rx Instructions PO .COMPLEX Qty: 6 0RF Rx Instructions: take TWO 150 mg tablets of nirmatrelvir with ONE 100 mg tablet of ritonavir twice daily for 5 days prednisone 20 mg tablet 40 mg PO DAILY 4 Days Qty: 8 0RF ipratropium-albuterol 0.5 mg-3 mg(2.5 mg base)/3 mL solution for nebulization 3 ml inhalation TID Qty: 90 0RF No Action calcium carbonate 200 mg calcium (500 mg) tablet,chewable 200 mg PO .As Needed PRN ascorbic acid (vitamin C) 500 mg tablet 500 mg PO DAILY aspirin 81 mg tablet,delayed release (DR/EC) 81 mg PO QDAY fluticasone propionate 50 mcg/actuation spray,suspension 1 spray intranasal DAILY lorazepam [Ativan] 0.5 mg tablet 0.5 mg PO TID PRN montelukast 10 mg tablet 10 mg PO HS pravastatin 20 mg tablet 20 mg PO HS potassium chloride 10 mEq tablet,ER particles/crystals 10 meq PO BID PRN (Reason: hypokalemia) Qty: 180 3RF triamterene-hydrochlorothiazid 37.5-25 mg tablet 1 tab PO DAILY Qty: 90 3RF Rx Instructions: STRENGTH IS 37.5/25 levalbuterol HCl 1.25 mg/3 mL solution for nebulization 1.25 mg inhalation TID PRN (Reason: shortness of breath or wheezing) Qty: 90 3RF albuterol sulfate 90 mcg/actuation HFA aerosol inhaler 2 inh inhalation Q6-8H PRN (Reason: shortness of breath or wheezing) Qty: 8.5 5RF pantoprazole [Protonix] 40 mg tablet,delayed release (DR/EC) 40 mg PO QDAY Qty: 90 3RF budesonide-formoterol [Symbicort] 160-4.5 mcg/actuation HFA aerosol inhaler 1 puff inhalation BID Follow Up/Referrals: Milad Trejo MD [Primary Care Provider] - Stand Alone Forms: [employer] Info Instructions
--- NOTE | 2023-03-15 23:49 | CRLHL7_ITS ---
For Patients: As a result of the Cures Act, medical imaging exams and procedure reports are released immediately into your electronic medical record. You may view this report before your referring provider. If you have questions, please contact your health care provider. INDICATION: Dyspnea and fever. TECHNIQUE: Chest 1 views. COMPARISON: November 14, 2021. FINDINGS: Cardiovascular and mediastinum: Heart size and vasculature are normal in caliber and appearance. Lungs and pleural spaces: Lungs are clear. No sign of infiltrate or mass. No sign of pleural effusion. No pneumothorax. Bones and soft tissues: No significant findings. IMPRESSION: No acute findings and no significant changes from the prior exam. Dictated by Blayne Alves MD @ 03/16/2023 12:27:02 AM (Electronically Signed)
[2023-03-15 23:50] VITALS: O2SAT 98
[2023-03-15] MEDS: IPRAT-ALBUT 0.5-2.5 MG/3 ML NEB 1 NEB IH (23:57)
[2023-03-16] MEDS: predniSONE 20 MG TABLET 80 MG PO (00:11)
[2023-03-16 00:35] LABS: PCR FLU A Negative PCR FLU A (Negative); PCR FLU B Negative PCR FLU B (Negative); PCR RSV Negative PCR RSV (Negative)
[2023-03-16 00:43] LABS: SARS PCR* POSITIVE SARS-CoV-2 (Negative)
[2023-03-16] MEDS: LORazepam 2 MG/ML inj 0.5 MG IM (01:22)
[2023-03-16 01:27] VITALS: TEMP 36.8
[2023-03-16] MEDS: IBUPROFEN 200 MG TABLET 600 MG PO (01:27)
[2023-03-16 02:16] VITALS: BP 135/74; PULSE 84; RESP 24; TEMP 36.9; O2SAT 98
[2023-03-16 02:21] VITALS: BP 135/74; PULSE 84; RESP 24; TEMP 36.9
== END 2023-03-16 02:21 | disposition home or self-care (01) ==
PROVIDERS: Emergency Provider Family Medicine; PCP Family Medicine
DX: J45.901 Unspecified asthma with (acute) exacerbation (principal); U07.1 COVID-19
CPT/HCPCS: 71045; 87631; 94640; 94761; 96372; 96374; 99284; A9270; J2060; J7512

== ENCOUNTER 2023-05-27 08:49 | Outpatient (CLI) | payer MEDICARE, BC, SELFPAY | END 2023-05-27 08:50 | disposition home or self-care (01) | PROVIDERS: PCP Family Medicine; Visit Provider Family Medicine | DX: E11.9 Type 2 diabetes mellitus without complications (principal); I10 Essential (primary) hypertension; E78.5 Hyperlipidemia, unspecified; E66.9 Obesity, unspecified; K76.0 Fatty (change of) liver, not elsewhere classified; Z13.0 Encounter for screening for diseases of the blood and blood-forming organs and certain disorders involving the immune mechanism; Z13.29 Encounter for screening for other suspected endocrine disorder | CPT/HCPCS: 80048; 80061; 82607; 84443 ==

== ENCOUNTER 2024-05-30 08:47 | Outpatient (CLI) | payer MEDICARE, BC, SELFPAY | END 2024-05-30 08:48 | disposition home or self-care (01) | PROVIDERS: PCP Family Medicine; Visit Provider Family Medicine | DX: I10 Essential (primary) hypertension (principal); E78.2 Mixed hyperlipidemia | CPT/HCPCS: 80048; 80061 ==

== ENCOUNTER 2024-07-11 08:33 | Outpatient (CLI) | payer MEDICARE, BC, SELFPAY ==
--- NOTE | 2024-07-11 10:13 | P.ANES_ITS ---
Anesthesia Charges Start Date/Time Anesthesia Start Date: 07/11/24 Anesthesia Start Time: 09:26 Stop Date/Time Anesthesia Stop Date: 07/11/24 Anesthesia Stop Time: 10:10 Coding CPT Codes CPT Codes: BRET LWR INTST NDSC NOS - 56843 ([id number]) QK - FICTION WRITER 2-4 CNCRNT BRET PROC, QX - TECHNICAL SALES SUPPORT MANAGER SVC W/ MD MED DIRECTION, P2 - PATIENT W/MILD SYST DISEASE
--- NOTE | 2024-07-11 10:13 | W.ANESCHARGE ---
Anesthesia Charges Start Date/Time Anesthesia Start Date: 07/11/24 Anesthesia Start Time: 09:26 Stop Date/Time Anesthesia Stop Date: 07/11/24 Anesthesia Stop Time: 10:10 Coding CPT Codes CPT Codes: BRET LWR INTST NDSC NOS - 26077 ([id number]) QK - ELECTRICAL ELECTRONICS ENGINEER 2-4 CNCRNT BRET PROC, QX - SENIOR IOS DEVELOPER SVC W/ MD MED DIRECTION, P2 - PATIENT W/MILD SYST DISEASE
--- NOTE | 2024-07-11 10:29 | P.ANES_ITS ---
Anesthesia Charges Start Date/Time Anesthesia Start Date: 07/11/24 Anesthesia Start Time: 09:26 Stop Date/Time Anesthesia Stop Date: 07/11/24 Anesthesia Stop Time: 10:10 Summary Extremes of Age - Over 70 or under 1: MDA Coding CPT Codes CPT Codes: ANES LWR INTST NDSC NOS - 60017 ([id number]) QK - SUPERVISOR LOCOMOTIVE 2-4 CNCRNT ANES PROC, QX - INTERNET SITE DESIGNER SVC W/ MD MED DIRECTION, P2 - PATIENT W/MILD SYST DISEASE Additional Codes: Summary - Extremes of Age - Over 70 or under 1: MDA ([id number])
== END 2024-07-11 08:34 | disposition home or self-care (01) ==
PROVIDERS: PCP Family Medicine; Visit Provider Surgery
DX: Z12.11 Encounter for screening for malignant neoplasm of colon (principal); D12.3 Benign neoplasm of transverse colon; D12.8 Benign neoplasm of rectum; K57.30 Diverticulosis of large intestine without perforation or abscess without bleeding; Z86.0100 Personal history of colon polyps, unspecified
CPT/HCPCS: 00811; 45380; 45385; 88305; 99100; J2704

== ENCOUNTER 2024-08-01 08:57 | Outpatient (CLI) | payer MEDICARE, BC, SELFPAY | END 2024-08-01 08:58 | disposition home or self-care (01) | LOC: MAMMO 08:58 | PROVIDERS: PCP Family Medicine; Visit Provider Family Medicine | DX: Z12.31 Encounter for screening mammogram for malignant neoplasm of breast (principal); R92.333 Mammographic heterogeneous density, bilateral breasts | CPT/HCPCS: 77063; 77067 ==

== ENCOUNTER 2024-11-15 07:02 | Outpatient (CLI) | payer MEDICARE, BC, SELFPAY ==
--- NOTE | 2024-11-15 07:15 | MR_ITS ---
[address] [address] Phone:?[phone] Fax:?[phone] Referring Physician Information: Fermin Anderson M.D. [address] [facility] [address] Phone:?[phone] Fax:?[phone] Patient:Ralf Thomas D.O.B:?1950 Sex:?Female Phone:?[phone] [facility] MRN:?[id number] Exam Date:?11/15/2024 EXAM: MRI of the LEFT KNEE, without contrast CLINICAL INFORMATION: Female, 74 years old, with knee pain INDICATION: Knee pain PRIOR SURGERY: None reported. PLAIN FILMS: Radiographs 11/08/2024. COMPARISONS: No prior MRIs available. TECHNICAL INFORMATION: Using a 1.5T MR scanner and a localizing surface coil: sagittals: PD, PDFS coronals: PD, T2FS axials: PD, PDFS SEDATION: None CONTRAST: None FINDINGS: Knee joint: Effusion: Moderate size left knee effusion. Popliteal cyst: None. Loose bodies: None. Subcutaneous and extra-articular soft tissues: Mild prepatellar subcutaneous soft tissue edema/skin thickening Ligaments: ACL: Intact ACL anteromedial and posterolateral bundles, without sprain or tear. PCL: Intact PCL, without acute or chronic injury. MCL: Intact MCL superficial and deep layers, without injury. LCL: Intact LCL, without injury. Posterolateral corner: No posterolateral corner soft tissue injury. Popliteus, biceps femoris, iliotibial band, popliteofibular ligament and lateral gastrocnemius are intact. Posteromedial corner: No posteromedial corner soft tissue injury. Semimembranosus, pes anserine tendons and posterior oblique ligament are without injury, tendinopathy or bursitis. Extensor mechanism: Patellar tendon: Intact, without tendinopathy. Quadriceps tendon: Intact, without tendinopathy. Retinacula: Medial and lateral retinacula are intact. Fat pads: Unremarkable infrapatellar Hoffa's, quadriceps and prefemoral fat pads. Medial compartment: Medial meniscus: Medial meniscus is abnormal in appearance. There is horizontal undersurface cleavage tearing of the meniscus throughout the entire body and posterior horn, over a length of approximately 3.6 cm. The posterior root of the meniscus is intact. There is also horizontal undersurface tearing throughout the anterior horn extending to involve the junction of the anterior transverse meniscal ligament. There is 4 mm peripheral meniscal extrusion at the level of the body. 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 Mild peripheral osteophytosis. Medial tibial plateau: Broad-based grade 2 chondral thinning of the medial tibial plateau articular cartilage, with grade III/IV chondromalacia along the anterior and central weightbearing surface. Mild peripheral osteophytosis. Lateral compartment: Lateral meniscus: Horizontal undersurface tearing from the level of the mid body through the posterior horn of the lateral meniscus over a length of approximately 2.8 cm. There is additional complex undersurface tearing of the anterior horn and mucoid degeneration of the anterior body. Lateral femoral condyle: Grade III chondral thinning along the central and posterior weightbearing lateral femoral condyle with subchondral bone plate irregularity, measuring up to 2.1 x 1.2 cm. Lateral tibial plateau: Grade III/IV chondromalacia along the posterior lateral tibial plateau measuring approximately 1.5 x 1.3 cm. Patellofemoral joint: Patella: Broad-based grade 2 chondral thinning of the patellar articular cartilage, with grade 3 thinning of the central median ridge. Trochlea: Grade III chondromalacia of the central trochlea. Proximal tibiofibular joint: Unremarkable, without evidence of ligament sprain injury, joint effusion or adjacent marrow edema. Bones: No fracture or other marrow edema/pathology. Mild cystic change is noted underlying the posterior tibial attachment of the medial meniscus. IMPRESSION: 1. Broad-based horizontal undersurface tearing involving essentially the entire medial and lateral meniscus. Please see description above. 2. Moderate size region of grade III/IV chondromalacia along the central posterior weightbearing medial femoral condyle. Additional grade III/IV chondromalacia of the anterior/central medial tibial plateau. 3. Grade III/IV chondromalacia along the central and posterior lateral femoral condyle and tibial plateau. 4. No cruciate or collateral ligament sprain/tear. 5. Moderate size knee joint effusion. KME Electronically signed on 11/15/2024 3:02:00 PM by Candis Javier M.D.
--- OUTSIDE RECORDS SUMMARY | 2024-11-15 07:24 | XMS_ITS | Clinical Summary ---
Author Organization [facility] Address [address] [place] [address] Care Team Providers Care Motorized Squad Captain Name Role Phone Citlalli Roldan MD Primary Care Provider [phone] Allergies Active Allergy Reactions Criticality Noted Date Comments Cephalosporins Throat Swelling/Closing 08/09/19 15 Erythromycin Hives 08/08/2014 Mold Extracts Throat Swelling/Closing 5 Penicillin V Hives 08/08/2014 Triamcinolone Throat Swelling/Closing 5 Medications FLONASE 50 MCG/ACTUATION NASL SPRA 2 puffs bid prn 1 mdi 5 5 Active ADVAIR DISKUS 100 MCG-50 MCG/DOSE INHL DSDV Inhale 1 puff twice daily for lungs, rinsing mouth after use ? 0 5 Active SINGULAIR 10 MG TAB one tab qd 30 5 5 Active VENTOLIN 90 MCG/ACTUATION AEROSOL INHALER 2 sprays qid prn 1 mdi 5 5 Active RANITIDINE HCL ORAL Take 150 mg by mouth 2 times daily. Active CIRAKJAV-CED-BW ONDR-VIT C-HYAL ORAL Take 3 Tabs by mouth once daily. Active ASPIRIN (ASPIR-81 ORAL) Take 81 mg by mouth once daily. Active MULTIVIT &MINERALS/AGUSTIN US FUM (MULTI VITAMIN ORAL) Take 1 Cap by mouth once daily. Active TRIAMTERENE-HYD ROCHLOROTHIAZID ORAL Take by mouth. Activ e cholecalciferol (VITAMIN D-3) 2,000 unit capsule Take 2,000 Units by mouth once daily. Active ascorbic acid (VITAMIN C) 500 mg tablet Take 500 mg by mouth once daily. Active LEVALBUTEROL TARTRATE (XOPENEX HFA INHL) Inhale 45 mcg by mouth. Active levalbuterol (XOPENEX) 1.25 mg/3 mL nebulizer solution Inhale 1 Neb via a nebulizer every 4 hours if needed. Active acetaminophen (TYLENOL EXTRA STRGTH) 500 mg tablet Take 1,000 mg by mouth every 6 hours if needed. 2 Active Symbicort 160-4.5 mcg/actuation (160-4.5 mcg each actuation) inhaler INHALE 2 PUFFS BY MOUTH TWICE A DAY 2 Active ibuprofen (ADVIL; MOTRIN) 200 mg tablet Take 600 mg by mouth every 6 hours if needed. 2 Active pantoprazole (PROTONIX) 40 mg delayed-release tablet Take 40 mg by mouth once daily. 2 Active potassium chloride (K-DUR, KLOR-CON M10) 10 mEq tablet Take 10 mEq by mouth. 2 Active pravastatin (PRAVACHOL) 20 mg tablet Take 20 mg by mouth at bedtime. 2 Active Active Problems Problem Noted Date Diagnosed Date THRUSH 08/30/2004 ASTHMA WITH ACUTE EXACERBATION 07/15/2004 INCONTINENCE STRESS - FEMALE 02/06/2003 HYPERLIPIDEMIA 07/27/2002 EXAMINATION, PREOPERATIVE NEC 11/03/2000 ASTHMA, MILD PERSISTENT 11/03/2000 STATE, FEMALE CLIMACTERIC 11/03/2000 Immunizations Immunization Administration Dates Next Due Influenza, IIV3 (Age >=3 years) 04/08/2004,03/31 Family History Medical History Relation Name Comments Genetic Other mom angina , da d colon ca which was dx at age 60 yrs old. . grandmother paternal pancreatic ca maternal grandfather heart problems also and father asthmatic, Relation Name Status Comments Other Social History Tobacco Use Types Packs/Day Years Used Date Smoking Tobacco: Former Cigarettes Q uit: 12/1984 Smokeless Tobacco: Never Tobacco Cessation:Counseling Given: Yes Social Connections Answer Date Recorded Frequency of Communication with Friends and Fami ly Not on file 02/07/2022 Comments Unknown Sex and Gender Information Value Date Recorded Sex Assigned at Not on file Legal Sex Female 5:25 AM INDUSTRIAL ECOLOGIST Gender Identity Not on file Sexual Orientation Not on file Obstetrics History Last Filed Vital Signs Vital Sign Reading Time Taken Comments Blood Pressure 127/67 02/07/2022 1:32 PM CDT Pulse 75 02/07/2022 1:32 PM CDT Temperature 36.4 C (97.6 F) 08/30/2004 12:00 AM CDT Respiratory Rate 12 11/03/2000 12:00 AM CDT Oxygen Saturation 98% 02/07/2022 1:32 PM CDT Inhaled Oxygen Concentration - - Weight 81.2 kg (179 lb) 02/07/2022 1:32 PM CDT Height 167.6 cm (5' 6) 11/03/2000 12:00 AM CDT Body Mass Index - - Plan of Treatment Health Maintenance Due Date Last Done Comments Tdap 1962 Depression screening for age 12+ 1963 BMI (ht and wt on same day) for age 18+ 1969 Hepatitis C screening for age 18-79 1969 Tetanus booster 1971 Pneumococcal series for age 50+ (1 of 1 - PCV) 2001 Zoster (shingles) series for age 50+ (1 of 2) 2001 Mammogram for age 45-75 02/03/2004 02/03/20 03, 07/18/2002, 07/08/2002, Additional history exists Lipids for age 45-75 07/28/2007 07/27/2002, 07/27/2002, 07/06/2002, Additional history exists RSV vaccine for adults or (1 - Risk 60-74 years 1-dose series) 2011 Colonoscopy through age 75 02/11/2014 02/12/2004 DEXA/DXA scan for age 65+ 2016 Medicare Wellness for age 65+ 2016 COVID-19 vaccine series ( season) 2024 02/27/2022, 09/09/2021, 03/04/2021, Additional history exists Influenza Vaccine (Season Ended) 2025 04/08/2004, 03/31/2001 Hepatitis B series for 19+ Aged Out N o longer eligible based on patient's age to complete this topic Procedures Procedure Name Priority Date/Time Associated Diagnosis Comments COLONOSCOPY SCREENING Routine 02/12/2004 2:01 PM CDT XR MAMMO SCREENING BILATERAL (IA) Routine 02/02/2003 9:37 AM CDT CHOLESTEROL,TOTAL Routine 07/27/2002 4:3 7 PM INDUSTRIAL ECOLOGIST from Last 3 Months or Most Recently Relevant to Health Maintenance Results * COLONOSCOPY SCREENING (02/12/2004 2:01 PM CDT) COLONOSCOPY Polyps 02/12/2004 2:01 PM CDT Narrative 02/19/2004 2:18 PM CDT Ordered by an unspecified provider. us Other Clinical Staff GI PROCEDURE ORD Final Resu lt * XR MAMMO SCREENING BILATERAL (02/02/2003 9:37 AM CDT) MAMMOGRAM Benign Anatomical Region Laterality Modality BREASTS, Breast Left, Breast Right Bilateral Mammography 02/02/2003 9:37 AM CDT Narrative 11/05/2003 8:26 PM CDT Ordered by an unspecified provider. us Other Clinical Staff MAMMO Final Resul t * CHOLESTEROL,TOTAL (07/27/2002 4:37 PM INDUSTRIAL ECOLOGIST) CHOLESTEROL,TOT AL 218 mg/dL 07/27/2002 4:37 PM INDUSTRIAL ECOLOGIST Narrative 11/04/2003 12:06 PM CDT Ordered by an unspecified provider. us Other Clinical Staff CHEMISTRY Final Resul t from Last 3 Months or Most Recently Relevant to Health Maintenance Insurance [employer] [place] BL[employer] [place] ONLY Care Teams Motorized Squad Captain Relationship Specialty Start Date End Date Citlalli Roldan MD [address] [place] [address] PCP - General Internal Medicine 08/05/14
--- OUTSIDE RECORDS SUMMARY | 2024-11-16 00:52 | XMS_ITS | Clinical Summary ---
Author Organization [facility] Address [address] [place] [address] Care Team Providers Care Senior Capital Markets Specialist Name Role Phone Citlalli Roldan MD Primary Care Provider [phone]- [phone] Allergies Active Allergy Reactions Criticality Noted Date [...] mg by mouth 2 times daily. Active [id number] ONDR-VIT C-HYAL ORAL Take 3 Tabs by [...] on file Legal Sex Female 5:25 AM PAN DUMPER Gender Identity Not on file Sexual Orientation [...] CDT CHOLESTEROL,TOTAL Routine 07/27/2002 4:3 7 PM PAN DUMPER from Last 3 Months or Most Recently [...] Resul t * CHOLESTEROL,TOTAL (07/27/2002 4:37 PM PAN DUMPER) CHOLESTEROL,TOT AL 218 mg/dL 07/27/2002 4:37 PM PAN DUMPER Narrative 11/04/2003 12:06 PM CDT Ordered by an unspecified provider. us Other Clinical Staff CHEMISTRY Final Resul t from Last 3 Months or Most Recently Relevant to Health Maintenance Insurance [employer] [place] BLUE [place] ONLY Care Teams Senior Capital Markets Specialist Relationship Specialty Start Date End Date Citlalli Roldan MD [address] [place] [address] PCP - General Internal Medicine 08/05/14
== END 2024-11-15 07:03 | disposition home or self-care (01) ==
PROVIDERS: PCP Family Medicine; Visit Provider Orthopaedic Surgery Sports Medicine
DX: M25.562 Pain in left knee (principal); S83.282A Other tear of lateral meniscus, current injury, left knee, initial encounter; S83.242A Other tear of medial meniscus, current injury, left knee, initial encounter; M94.262 Chondromalacia, left knee; M25.462 Effusion, left knee; S86.112A Strain of other muscle(s) and tendon(s) of posterior muscle group at lower leg level, left leg, initial encounter; S86.912A Strain of unspecified muscle(s) and tendon(s) at lower leg level, left leg, initial encounter
CPT/HCPCS: 73721

== ENCOUNTER 2024-11-22 08:52 | Outpatient (CLI) | payer MEDICARE, BC, SELFPAY | END 2024-11-22 08:53 | disposition home or self-care (01) | LOC: LKVREF 08:55 | PROVIDERS: PCP Family Medicine; Visit Provider Family Medicine | DX: E78.2 Mixed hyperlipidemia (principal); I10 Essential (primary) hypertension | CPT/HCPCS: 80048 ==

== ENCOUNTER 2024-12-12 08:06 | Day surgery (SDC) | payer MEDICARE, BC, SELFPAY ==
[2024-12-12] VITALS (23 sets, daily range): BP systolic 105–152; BP diastolic 53–92; PULSE 52–87; RESP 16–19; TEMP 36.1–37.2; O2SAT 92–99; BMI 31.2
[2024-12-12] MEDS: LACTATED RINGERS 1000 ML 1,000 ML 100 ML IV ×2 (08:10→12:19)
[2024-12-12] MEDS: OXYCODONE (CR) 10 MG TAB.ER.12H PO (08:20)
[2024-12-12] MEDS: ACETAMINOPHEN 500 MG TABLET 1000 MG PO ×3 (08:20→20:58)
[2024-12-12] MEDS: SODIUM CHLORIDE 0.9 % (FLUSH) 10 ML SYRINGE IVF (08:49)
--- NOTE | 2024-12-12 09:29 | W.PM.H&PU ---
History & Physical Update History & Physical Update H&P Reviewed and patient assessed: No changes noted
[2024-12-12] MEDS: VANCOMYCIN 1.5 GM/300 ML 1.5 GM/300 ML PIGGYBACK IVPB (09:45)
[2024-12-12] MEDS: MIDAZOLAM HCL 1 MG/ML inj IVP (10:35)
--- NOTE | 2024-12-12 10:40 | P.NB_ITS ---
Nerve Block Nerve Block Time Seen by Provider: 10:35 Date Seen: 12/12/24 Type of block requested by surgeon for post-operative analgesia: adductor canal Side: left Time out performed: Yes Verification of patient name: Yes Verification of date of : Yes Site marking: site marked Name of person performing procedure: Ciro Continuous monitoring Was continuous monitoring of O2 sat, B/P, phthalic acid purifier, recorded every 15 minutes?: Yes Procedure Checklist: sterile prep, needles and gloves Ultrasound guided. Images saved: Yes Medications given in 5ml increments after negative aspiration: Marcaine %: 0.25 mL: 15 Needle gauge: 20 Precedex (mcg): 25 Patient tolerated procedure well: Yes Block Charges Block Charge (with Pro Fee): Femoral Nerve Use of Ultrasound Machine for Block: Yes- US Guidance/pain block
--- NOTE | 2024-12-12 10:41 | P.ANES_ITS ---
Anesthesia Charges Start Date/Time Anesthesia Start Date: 12/12/24 Anesthesia Start Time: 10:55 Stop Date/Time Anesthesia Stop Date: 12/12/24 Anesthesia Stop Time: 12:57 Summary Extremes of Age - Over 70 or under 1: MDA Coding CPT Codes CPT Codes: ANESTH KNEE ARTHROPLASTY - 33602 ([id number]) P2 - PATIENT W/MILD SYST DISEASE, QK - REGULATORY AFFAIRS DIRECTOR 2-4 CNCRNT ANES PROC, QX - SALES CENTER ASSOCIATE SVC W/ MD MED DIRECTION Additional Codes: Summary - Extremes of Age - Over 70 or under 1: MDA ([id number])
--- NOTE | 2024-12-12 10:41 | P.NB_ITS ---
Nerve Block Nerve Block Time Seen by Provider: 10:35 Date Seen: 12/12/24 Type of block requested by surgeon for post-operative analgesia: geniculars Side: left Time out performed: Yes Verification of patient name: Yes Verification of date of : Yes Site marking: site marked Name of person performing procedure: Ciro Continuous monitoring Was continuous monitoring of O2 sat, B/P, inventory assistant, recorded every 15 minutes?: Yes Procedure Checklist: sterile prep, needles and gloves Ultrasound guided. Images saved: Yes Medications given in 5ml increments after negative aspiration: Marcaine %: 0.25 mL: 9 Needle gauge: 25 Patient tolerated procedure well: Yes Block Charges Block Charge (with Pro Fee): Genicular Nerve Block
--- NOTE | 2024-12-12 10:41 | W.ANESCHARGE ---
Anesthesia Charges Start Date/Time Anesthesia Start Date: 12/12/24 Anesthesia Start Time: 10:55 Stop Date/Time Anesthesia Stop Date: 12/12/24 Anesthesia Stop Time: 12:57 Summary Extremes of Age - Over 70 or under 1: MDA Coding CPT Codes CPT Codes: ANESTH KNEE ARTHROPLASTY - 44711 ([id number]) P2 - PATIENT W/MILD SYST DISEASE, QK - OXYGEN EQUIPMENT TECHNICIAN 2-4 CNCRNT ANES PROC, QX - REVIEW TRAINER SVC W/ MD MED DIRECTION Additional Codes: Summary - Extremes of Age - Over 70 or under 1: MDA ([id number])
--- NOTE | 2024-12-12 10:48 | SUR.PREOP ---
TIME?OUT:?1034 PT/RN/MDA?VERIFICATION?OF?SURGICAL?SITE,?PROCEDURE,?AND?CONSENT OBTAINED?PRIOR?TO?INVASIVE?PROCEDURE.
--- NOTE | 2024-12-12 11:07 | CRLHL7_ITS ---
For Patients: As a result of the Cures Act, medical imaging exams and procedure reports are released immediately into your electronic medical record. You may view this report before your referring provider. If you have questions, please contact your health care provider. INDICATION: Postop. TECHNIQUE: Two views of the right knee. FINDINGS: New right TKA. Components appear well seated. Adjacent postop soft tissue air. Dictated by Jean Paul Escobedo MD @ 12/14/2024 2:16:22 PM (Electronically Signed)
--- NOTE | 2024-12-12 12:18 | P.ORPRC_ITS ---
Procedure Note Date of procedure: 12/12/24 Procedure: PREOPERATIVE DIAGNOSIS: 1. Left knee osteoarthritis, primary, severe POSTOPERATIVE DIAGNOSIS: 1. Left knee osteoarthritis, primary, severe PROCEDURE: 1. Left total knee arthroplasty - subvastus SURGEON: Fermin Anderson MD. BELLOWS ASSEMBLER: MAL Randall - Of note, a skilled podiatrist assistant was critical for this case to aid in patient positioning, tissue retraction, limb manipulation/positioning, and closure. ANESTHESIA: Spinal anesthetic EBL: 50ml IMPLANTS: DePuy J&J all cemented TKA - Attune PS femur size 5 regular Size 4 tibia 5 poly spacer 35 mm patella TOURNIQUET: 45 minutes at 300 torr COMPLICATIONS: None evident INDICATIONS: The patient is a pleasant 74-year-old female who has experienced severe left knee pain and difficulty bearing weight. Workup included x-rays which revealed severe osteoarthrosis in the knee. Given the deformity, the dysfunction, and the pain, as well as the failure of nonoperative management, recommendation was made for surgery. FINDINGS: Full-thickness chondral loss medial compartment. To lesser degree patellofemoral and lateral compartments. Degenerative meniscus pathology medial greater than lateral. Moderate to large effusion upon entering the joint. DESCRIPTION OF PROCEDURE: Following a thorough discussion of risks, benefits, and alternatives consent was obtained and the left knee was marked. The patient was brought to the operating room and placed supine on the operating table. Induction of anesthesia was undertaken. 1 g IV vancomycin due to cephalosporin allergy and 1 g tranexamic acid was administered within 1 hr of incision preoperatively. Proper time-out was performed identifying proper patient, site, procedure. The operative extremity was prepped and draped in the appropriate sterile fashion using ChloraPrep after the patient was positioned supine with all bony prominences well padded. A longitudinal, anterior, midline skin incision was made starting approximately 3cm proximal to the superior pole of the patella and advanced distal to the tibial tubercle. A subvastus approach was utilized. A medial subperiosteal sleeve was created with knife, rivera elevator and curved osteotome. The retropatellar fatpad was resected and the synovium in the suprapatellar pouch excised to visualize the anterior femoral cortex. Femoral preparation was performed via an intramedullary guide. Step drill allowed access into the femoral canal. The distal cutting guide was placed with 5? of valgus and 10 mm cut on the distal femur. Femur was sized using a anterior referencing guide in 3? of external rotation. This found have a best fit with the sizing noted above. The 4 in 1 cutting block was then placed, and the distal femur shaped accordingly. The box cut was then created and the trial implant inserted to confirm appropriate fit. We turned our attention to the proximal tibia. Extramedullary guide was utilized for cutting with the goal of being 90 degree cut from the mechanical axis of the tibia in the varus/valgus plane utilizing tibial crest as the primary alignment. Initially a 3 mm resection was performed from the medial tibial plateau. Ultimately, balancing was achieved in both flexion and extension in both varus and valgus. The knee was able to achieve full extension as well comfortably. The patella was initially measured and found have a thickness of 23 mm. It was resected back to approximately 14 mm. It was sized to be a best fit with as noted above. This was drilled, trial placed. All trials were placed and found to have an excellent stability and balance. At this stage, trial implants were removed, the knee was thoroughly irrigated with normal saline, and the cement was mixed. After irrigation, the knee was thoroughly dried, and cement placed, with the real tibial and femoral implants placed along with the patella. Trial poly spacer was placed and confirmed to have excellent range of motion and full extension, and the real poly spacer opened and inserted. All extra cement was removed, and a 3 min Betadine soak performed. Finally, a final irrigation round with normal saline was performed. Closure performed with 0 PDS and #0 Stratafix for the quad tendon/retinaculum. 2-0 Vicryl/Stratafix for the subcutaneous and 4-0 Monocryl for subcuticular closure. Dressings were applied and the patient was awoken from anesthesia after the tourniquet deflated and transferred the PACU in stable condition. A skilled podiatrist assistant was critical for this case to aid in patient positioning, tissue retraction, bone exposure, limb manipulation/positioning, patient safety, and closure. PLAN: 1. Weight bear as tolerated operative extremity. 2. 23 hr perioperative antibiotics. 3. Ice. 4. PT/OT consults for ambulation assistance/mobility education. 5. Social work consult for discharge planning. 6. DVT prophylaxis with at SCDs and aspirin twice daily.
--- NOTE | 2024-12-12 12:57 | P.ANES_ITS ---
Anesthesia Charges Start Date/Time Anesthesia Start Date: 12/12/24 Anesthesia Start Time: 10:55 Stop Date/Time Anesthesia Stop Date: 12/12/24 Anesthesia Stop Time: 12:57 Summary Extremes of Age - Over 70 or under 1: HAT IRONER Coding CPT Codes CPT Codes: ANESTH KNEE ARTHROPLASTY - 39393 ([id number]) P3 - PATIENT W/SEVERE SYS DISEASE, QK - GEOMETRY TUTOR 2-4 CNCRNT ANES PROC, QX - HAT IRONER SVC W/ MD MED DIRECTION Additional Codes: Summary - Extremes of Age - Over 70 or under 1: HAT IRONER ([id number])
--- NOTE | 2024-12-12 12:57 | W.ANESCHARGE ---
Anesthesia Charges Start Date/Time Anesthesia Start Date: 12/12/24 Anesthesia Start Time: 10:55 Stop Date/Time Anesthesia Stop Date: 12/12/24 Anesthesia Stop Time: 12:57 Summary Extremes of Age - Over 70 or under 1: PHOTO OFFSET PRINTER Coding CPT Codes CPT Codes: ANESTH KNEE ARTHROPLASTY - 51957 ([id number]) P3 - PATIENT W/SEVERE SYS DISEASE, QK - BARREL RIFLER BROACH 2-4 CNCRNT ANES PROC, QX - PHOTO OFFSET PRINTER SVC W/ MD MED DIRECTION Additional Codes: Summary - Extremes of Age - Over 70 or under 1: PHOTO OFFSET PRINTER ([id number])
[2024-12-12] MEDS: LACTATED RINGERS 1000 ML 1,000 ML 75 ML IV (14:39)
--- NOTE | 2024-12-12 16:41 | PM.IMCN1 ---
Date of Consult Consult date: 12/12/24 Primary Care Provider: Milad Trejo MD Consult Narrative Narrative: Gypsy Thomas is a 74 year old female with past medical history of hypertension, hyperlipidemia, diabetes, asthma and left knee osteoarthritis who presented to the hospital for an elective left total knee arthroplasty. Patient is doing well status post the surgery. No respiratory issues patient is satting mid 90s at room air. Patient states that her asthma is well controlled on inhalers, she mentioned that she did not need to visit ER/Urgent Care for an asthma exacerbation for many years. No history of bleeding and no history of VTEs. Review of Systems Status of ROS: Reports: 6 or more systems reviewed and unremarkable except as noted in History and below [facility] Medical History Type 2 diabetes mellitus ?E11.9 - Type 2 diabetes mellitus without complications (ICD-10) Essential hypertension ?I10 - Essential (primary) hypertension (ICD-10) Hyperlipidemia ?E78.5 - Hyperlipidemia, unspecified (ICD-10) Asthma (06/13/10) ?J45.909 - Unspecified asthma, uncomplicated (ICD-10) GERD (gastroesophageal reflux disease) ?K21.9 - Gastro-esophageal reflux disease without esophagitis (ICD-10) Chronic diarrhea ?K52.9 - Noninfective gastroenteritis and colitis, unspecified (ICD-10) Numbness and tingling of left upper extremity ?R20.0 - Anesthesia of skin (ICD-10) ?R20.2 - Paresthesia of skin (ICD-10) Acute medial meniscus tear of left knee ?S83.242A - Other tear of medial meniscus, current injury, left knee, initial encounter (ICD-10) Osteoarthritis of left knee ?M17.12 - Unilateral primary osteoarthritis, left knee (ICD-10) Osteoarthritis of right shoulder ?M19.011 - Primary osteoarthritis, right shoulder (ICD-10) Right rotator cuff tendinitis ?M75.81 - Other shoulder lesions, right shoulder (ICD-10) Environmental and seasonal allergies (06/13/10) ?J30.89 - Other allergic rhinitis (ICD-10) Fatty liver ?K76.0 - Fatty (change of) liver, not elsewhere classified (ICD-10) Osteopenia ?M85.80 - Other specified disorders of bone density and structure, unspecified site (ICD-10) Lung nodule ?R91.1 - Solitary pulmonary nodule (ICD-10) History of colonic polyps (06/13/10) ?Z86.010 - Personal history of colonic polyps (ICD-10) COVID-19 ?U07.1 - COVID-19 (ICD-10) Laryngeal spasm ?J38.5 - Laryngeal spasm (ICD-10) Heat exhaustion ?T67.5XXA - Heat exhaustion, unspecified, initial encounter (ICD-10) Hx of malignant neoplasm of parotid gland ?Z85.818 - Personal history of malignant neoplasm of other sites of lip, oral cavity, and pharynx (ICD-10) Surgical History History of superficial parotidectomy ?Z98.890 - Other specified postprocedural states (ICD-10) S/P vaginal hysterectomy (04/08/06) ?Z90.710 - Acquired absence of both cervix and uterus (ICD-10) S/P nasal polypectomy ?Z98.890 - Other specified postprocedural states (ICD-10) S/P arthroscopic knee surgery (09/08/13) ?Z98.890 - Other specified postprocedural states (ICD-10) Status post cataract extraction ?Z98.49 - Cataract extraction status, unspecified eye (ICD-10) History of dilation and curettage (06/13/10) ?Z98.890 - Other specified postprocedural states (ICD-10) History of cholecystectomy (06/13/10) ?Z90.49 - Acquired absence of other specified parts of digestive tract (ICD-10) Social History Narrative: -Gene What is your current living situation?: I presently have a place to live In the past 12 months, utilities in danger of being shut off: no In past 12 months, lack of transportation kept you from medical appts, meetings, work, or getting things needed for daily living: no In the past 12 mos, have been you worried that your food would run out before you had money to buy more?: never true In the past 12 mos, the food you bought just didn't last and you didn't have money to buy more?: never true Smoking Status: Former smoker What tobacco products do you use: cigarettes Smoking quit date/years: >15 years ago Do you use any of these nicotine containing products: None Second hand tobacco smoke exposure: No How often do you have a drink containing alcohol: monthly or less AUDIT-C Alcohol total score: 1 Non-prescribed substance use: denies use Caffeine: Yes How often does anyone, including family, friends and others, physically hurt you: never How often does anyone, including family, friends and others, insult or talk down to you: never How often does anyone, including family, friends and others, threaten you with harm: never How often does anyone, including family, friends and others, scream or curse at you: never Meds Home Medications and Allergies Home Medications ?Medication ?Instructions ?Recorded ?Confirmed ?Type lorazepam 0.5 mg tablet (Ativan) 0.5 mg PO TID PRN 11/22/21 12/12/24 History levalbuterol HCl 1.25 mg/3 mL 1.25 mg (3 mL) inhalation TID PRN 05/03/22 12/12/24 Rx solution for nebulization shortness of breath or wheezing #90 mL albuterol sulfate 90 mcg/actuation 2 inh inhalation Q6-8H PRN 05/30/24 12/12/24 Rx aerosol inhaler shortness of breath or wheezing #8.5 grams budesonide-formoterol HFA 160 2 puff inhalation BID #10.2 grams 05/30/24 12/12/24 Rx mcg-4.5 mcg/actuation aerosol inhaler (Symbicort) cholecalciferol (vitamin D3) 50 50 mcg PO QDAY 05/30/24 12/12/24 History mcg (2,000 unit) capsule montelukast 10 mg tablet 10 mg PO HS #90 tabs 05/30/24 12/12/24 Rx pantoprazole 40 mg tablet,delayed 40 mg PO QDAY #90 tabs 05/30/24 12/12/24 Rx release (Protonix) potassium chloride 10 mEq 10 meq PO BID hypokalemia #180 tabs 05/30/24 12/12/24 Rx tablet,extended release(part/cryst) pravastatin 20 mg tablet 20 mg PO QPM #90 tabs 05/30/24 12/12/24 Rx triamterene 37.5 1 tab PO DAILY #90 tabs 05/30/24 12/12/24 Rx mg-hydrochlorothiazide 25 mg tablet ipratropium 0.5 mg-albuterol 3 mg 3 ml inhalation TID PRN shortness 05/31/24 12/12/24 Rx (2.5 mg base)/3 mL nebulization of breath or wheezing #90 mL soln pioglitazone 15 mg tablet 15 mg PO QDAY #90 tabs 11/22/24 12/12/24 Rx Allergies Allergy/AdvReac Type Severity Reaction Status Date / Time Cephalosporins Allergy Severe throat Verified 12/12/24 08:21 swelling triamcinolone Allergy Severe throat Verified 12/12/24 08:21 swells shut lovastatin Allergy Unknown Hives Verified 12/12/24 08:21 erythromycin base Allergy Hives Verified 12/12/24 08:21 mold Allergy Verified 12/12/24 08:21 psyllium AdvReac Unknown Verified 12/12/24 08:21 Exam Narrative: Exam Narrative: Physical exam GENERAL: Comfortable, no acute distress. HEAD AND NECK: Atraumatic, normocephalic CARDIOVASCULAR: RRR. Normal S1, S2. No murmurs. RESPIRATORY: Clear to auscultation B/L. Good air entry B/L. No wheezes or rhonchi. NEUROLOGY: Alert, awake, oriented X 3. Normal speech. PSYCH: Normal mood, normal affect. Const: Vital Signs, click to edit/add: Vital Signs - 24 hr 12/12/24 08:43 12/12/24 10:35 12/12/24 10:40 Temperature 97 F L 97.7 F Pulse Rate 65 57 L 54 L Respiratory Rate 16 16 16 Blood Pressure 152/73 H 147/75 H 145/61 H Pulse Oximetry 99 98 98 Oxygen Delivery Me thod Room Air Nasal Cannula Nasal Cannula Oxygen Flow Rate 2 2 12/12/24 10:45 12/12/24 12:57 12/12/24 13:00 Temperature Pulse Rate 52 L 74 73 Respiratory Rate 16 16 16 Blood Pressure 116/53 L 117/65 105/63 Pulse Oximetry 98 96 94 Oxygen Delivery Me thod Nasal Cannula Room Air Room Air Oxygen Flow Rate 2 0 0 12/12/24 13:05 12/12/24 13:10 12/12/24 13:15 Temperature Pulse Rate 68 71 71 Respiratory Rate 16 16 16 Blood Pressure 124/55 L 132/67 137/65 Pulse Oximetry 96 95 94 Oxygen Delivery Me thod Room Air Room Air Room Air Oxygen Flow Rate 0 0 0 12/12/24 13:20 12/12/24 13:25 Temperature 98.9 F Pulse Rate 63 65 Respiratory Rate 16 16 Blood Pressure 132/62 127/92 H Pulse Oximetry 94 95 Oxygen Delivery Me thod Room Air Room Air Oxygen Flow Rate 0 0 Assessment and Plan Assessment and plan (1) S/P total knee arthroplasty: Problem comment: Surgery performed on December 12 Orthopedics recommendations are: 1. Weight bear as tolerated operative extremity. 2. 23 hr perioperative antibiotics. 3. Ice. 4. PT/OT consults for ambulation assistance/mobility education. 5. Social work consult for discharge planning. 6. DVT prophylaxis with at SCDs and aspirin twice daily. Status: Acute (2) Asthma: Problem comment: Patient states that her asthma is well controlled on inhalers, she mentioned that she did not need to visit ER/Urgent Care for an asthma exacerbation for many years. Resume home inhalers Resume montelukast Status: Acute (3) Type 2 diabetes mellitus: Problem comment: On pioglitazone Ordered SSI Status: Chronic (4) Essential hypertension: Problem comment: On triamterene-hydrochlorothiazide Status: Chronic (5) Hyperlipidemia: Problem comment: Resume statin Status: Chronic Plan As above Total Time Spent Total Time Spent: Time spent: Today I spent 75 minutes seeing the patient, discussing the patient with ER staff, reviewing Expanse and EPIC notes/diagnostics, discussing the care plan with our care time that includes social work, PT/OT, pharmacy, RT, assisted and documenting my impressions and plan in the medical record.
--- NOTE | 2024-12-12 19:24 | PC.NURSE ---
End of shift note Patient is very pleasant and cooperative. She had a LTKA with spinal block and general anesthesia. Sensation has mostly returned but states that she can still feel the block at hip/groin level. Pain has been managed appropriately, and reported no pain by the end of shift. She can walk with assist of one to/from bed/chair/bathroom with walker and gait belt. Surgical site and Mepilex are intact and clear, no signs of infection. Patient was no able to void and complained of extreme pressure around pubic are. She was bladder scanned and straight cath resulting in an output of 1000 ml (100 ml voided in hat/ 900 from catheter). Patient expressed extreme relief. Recommended to observe voiding patterns as she expressed she still feels numbness around pelvic area.
[2024-12-12] MEDS: SENNOSIDES 1 TAB TABLET 2 TAB PO (20:58)
[2024-12-12] MEDS: Budesonide-Formoterol [Symbicort] 160-4.5 mcg/actuation 2 EACH IH (20:59)
[2024-12-12] MEDS: ASPIRIN 81 MG TABLET EC PO (20:59)
[2024-12-12] MEDS: MONTELUKAST 10 MG TABLET PO (20:59)
[2024-12-12] MEDS: PRAVASTATIN SODIUM 20 MG TABLET PO (20:59)
[2024-12-12] MEDS: VANCOMYCIN 1.25 GM/250 ML 1.25 GM/250 ML PIGGYBACK IVPB (23:05)
[2024-12-13 03:18] VITALS: BP 127/72; PULSE 65; RESP 18; TEMP 36.7; O2SAT 94
[2024-12-13] MEDS: ACETAMINOPHEN 500 MG TABLET 1000 MG PO ×2 (03:24→08:24)
[2024-12-13 06:36] LABS: Hematocrit 32.3 % (33.0-51.0); Hemoglobin* 10.8 gm/dL (12.0-16.0); Mean Corpuscular HGB Conc 33 gm/dL (32-36); Mean Corpuscular Hemoglobin 29 pg (26-34); Mean Corpuscular Volume 88 fL (80-100); Red Blood Count 3.69 m/uL (4.00-5.20); White Blood Count* 10.35 K/uL (4.50-11.00)
[2024-12-13 06:41] LABS: Slide Review Reflex No
[2024-12-13 06:51] LABS: Chloride* 100 mmol/L (96-114); Potassium* 3.2 mmol/L (3.6-5.1); Sodium* 133 mmol/L (135-149)
[2024-12-13 06:54] LABS: Anion Gap 2 mEq/L (7-15); Blood Urea Nitrogen* 14 mg/dL (7-30); Calcium* 9.1 mg/dL (8.4-10.6); Carbon Dioxide* 31 mmol/L (20-32); Creatinine* 0.6 mg/dL (0.5-1.5); Est. Creatinine Clearance* 43.27; Estimated Glomerular Filt Rate 95 ml/min; Glucose* 140 mg/dL (60-115)
[2024-12-13 07:00] VITALS: BP 122/58; PULSE 64; RESP 18; TEMP 36.8; O2SAT 98
--- NOTE | 2024-12-13 07:11 | PC.NURSE ---
Pt alert, oriented and vitally stable. Dressing C/D/I. Pain rated around 6/10, prn oxy utilized and pt stated improvement. +2 pitting edema bilaterally. Pt able to void throughout shift. Pt in bed, appears to be resting, call light within reach.? ?
[2024-12-13] MEDS: SENNOSIDES 1 TAB TABLET 2 TAB PO (08:05)
[2024-12-13] MEDS: ASPIRIN 81 MG TABLET EC PO (08:09)
[2024-12-13] MEDS: PIOGLITAZONE HCL 15 MG TABLET PO (08:11)
[2024-12-13 08:24] VITALS: TEMP 36.8
--- NOTE | 2024-12-13 09:29 | PM.ORPN ---
Subjective Subjective Date Seen: 12/13/24 Principal diagnosis: Status postop day 1 left total knee arthroplasty Interval history: Patient reports doing well. No acute events over night. Pain managed with scheduled and PRN medications, ice. DVT prophylaxis: 81 mg aspirin by mouth twice daily, SCDs, walking. Denies fevers, chills, aches, N/V, CP, SOB/DEXTER, or lightheadedness. Reports passing flatus. Ortho Exam Narrative Exam Narrative: -Patient appears comfortable; no apparent acute distress -Alert and oriented times 3 -Operative knee mildly swollen; soft tissues supple; no ecchymosis; no erythematous streaking Warmth appropriate -Surgical dressing clean, dry, intact; no drainage -Bilateral calfs soft; no significant swelling, edema, tenderness, erythema, discoloration, warmth, or palpable cords -2+ DP/PT pulses, intact dermatomes and myotomes distally (5/5 strength) Const Vital Signs, click to edit/add: Vital Signs - 24 hr 12/12/24 10:35 12/12/24 10:40 12/12/24 10:45 Temperature 97.7 F Pulse Rate 57 L 54 L 52 L Pulse Rate [Pulse Oximeter] Respiratory Rate 16 16 16 Blood Pressure 147/75 H 145/61 H 116/53 L Blood Pressure [Left Arm] Pulse Oximetry 98 98 98 Oxygen Delivery Method Nasal Cannula Nasal Cannula Nasal Cannula Oxygen Flow Rate 2 2 2 12/12/24 12:57 12/12/24 13:00 12/12/24 13:05 Temperature Pulse Rate 74 73 68 Pulse Rate [Pulse Oximeter] Respiratory Rate 16 16 16 Blood Pressure 117/65 105/63 124/55 L Blood Pressure [Left Arm] Pulse Oximetry 96 94 96 Oxygen Delivery Method Room Air Room Air Room Air Oxygen Flow Rate 0 0 0 12/12/24 13:10 12/12/24 13:15 12/12/24 13:20 Temperature Pulse Rate 71 71 63 Pulse Rate [Pulse Oximeter] Respiratory Rate 16 16 16 Blood Pressure 132/67 137/65 132/62 Blood Pressure [Left Arm] Pulse Oximetry 95 94 94 Oxygen Delivery Method Room Air Room Air Room Air Oxygen Flow Rate 0 0 0 12/12/24 13:25 12/12/24 13:45 12/12/24 14:00 Temperature 98.9 F 97.7 F 97.7 F Pulse Rate 65 Pulse Rate [Pulse Oximeter] 66 66 Respiratory Rate 16 18 18 Blood Pressure 127/92 H Blood Pressure [Left Arm] 118/58 L 130/57 L Pulse Oximetry 95 92 96 Oxygen Delivery Method Room Air Nasal Cannula Nasal Cannula Oxygen Flow Rate 0 2 2 12/12/24 14:15 12/12/24 14:30 12/12/24 14:45 Temperature 97.4 F L 97.7 F 97.6 F Pulse Rate Pulse Rate [Pulse Oximeter] 79 67 65 Respiratory Rate 18 16 18 Blood Pressure Blood Pressure [Left Arm] 125/66 121/70 117/69 Pulse Oximetry 96 97 98 Oxygen Delivery Method Room Air Room Air Room Air Oxygen Flow Rate 2 12/12/24 15:00 12/12/24 15:00 12/12/24 15:15 Temperature 97.2 F L Pulse Rate Pulse Rate [Pulse Oximeter] 71 Respiratory Rate 16 Blood Pressure Blood Pressure [Left Arm] 130/74 Pulse Oximetry 97 97 97 Oxygen Delivery Method Room Air Room Air Oxygen Flow Rate 12/12/24 15:45 12/12/24 16:45 12/12/24 17:45 Temperature 97.2 F L 97.4 F L 97.2 F L Pulse Rate Pulse Rate [Pulse Oximeter] 87 71 67 Respiratory Rate 18 19 18 Blood Pressure Blood Pressure [Left Arm] 115/60 113/71 122/75 Pulse Oximetry 97 96 97 Oxygen Delivery Method Room Air Room Air Room Air Oxygen Flow Rate 12/12/24 18:45 12/12/24 23:00 12/12/24 23:00 Temperature 98.4 F Pulse Rate Pulse Rate [Pulse Oximeter] 76 Respiratory Rate 16 Blood Pressure Blood Pressure [Left Arm] 122/75 Pulse Oximetry 98 97 97 Oxygen Delivery Method Room Air Room Air Oxygen Flow Rate 12/12/24 23:00 12/12/24 23:00 12/13/24 03:18 Temperature 98.2 F 98.0 F Pulse Rate Pulse Rate [Pulse Oximeter] 61 61 65 Respiratory Rate 18 18 18 Blood Pressure Blood Pressure [Left Arm] 139/76 127/72 Pulse Oximetry 97 94 Oxygen Delivery Method Room Air Room Air Oxygen Flow Rate 12/13/24 07:00 12/13/24 07:00 12/13/24 07:00 Temperature 98.2 F Pulse Rate Pulse Rate [Pulse Oximeter] 64 64 Respiratory Rate 18 Blood Pressure Blood Pressure [Left Arm] 122/58 L Pulse Oximetry 98 98 Oxygen Delivery Method Room Air Room Air Oxygen Flow Rate 12/13/24 08:24 Temperature 98.2 F Pulse Rate Pulse Rate [Pulse Oximeter] Respiratory Rate Blood Pressure Blood Pressure [Left Arm] Pulse Oximetry Oxygen Delivery Method Oxygen Flow Rate Assessment and Plan Assessment and plan (1) S/P total knee arthroplasty: Problem details: Surgery performed on December 12 Status: Acute (2) Asthma: Problem details: Patient states that her asthma is well controlled on inhalers, she mentioned that she did not need to visit ER/Urgent Care for an asthma exacerbation for many years. Resume home inhalers Resume montelukast Status: Acute (3) Type 2 diabetes mellitus: Problem details: On pioglitazone Ordered SSI Status: Chronic (4) Essential hypertension: Problem details: On triamterene-hydrochlorothiazide Status: Chronic (5) Hyperlipidemia: Problem details: Resume statin Status: Chronic Plan - Complete 23 hour perioperative antibiotics. - PT/OT consult for education and assistance. - Social work consult for discharge planning - Prescribed analgesics as needed - DVT prophylaxis: 81 mg aspirin by mouth twice daily, walking, and SCDs - Anticipation is for discharge to home with family/friends today 12/13/2024 if the patient remains medically stable, pain is controlled, and they are safe with mobilization.
[2024-12-13] MEDS: POTASSIUM BICARB 25 MEQ EFFERVESCENT TAB PO (09:40)
--- NOTE | 2024-12-13 10:56 | PC.NURSE ---
Discharge note 10:35 am Patient was very pleasant and cooperative through out her stay. She came in for post-op LTKA. Patient recovered full sensation as of this morning, and was able to void independently. Patient reported very minimal discomfort and pain was well managed with current regiment. Dressing was clean, dry and intact. Medications and discharge instructions were reviewed with and daughter present.
== END 2024-12-13 10:35 | disposition home or self-care (01) ==
LOC: OR 08:09 → MEDSURG 08:10
PROVIDERS: Student in an Organized Health Care Education/Training Program; PCP Family Medicine; Visit Provider Orthopaedic Surgery Sports Medicine
PROC: (CPT 27447; principal; 2024-12-12 10:15)
DX: M17.12 Unilateral primary osteoarthritis, left knee (principal); G89.18 Other acute postprocedural pain; E11.9 Type 2 diabetes mellitus without complications; J45.909 Unspecified asthma, uncomplicated; I10 Essential (primary) hypertension; K21.9 Gastro-esophageal reflux disease without esophagitis; K76.0 Fatty (change of) liver, not elsewhere classified; Z79.82 Long term (current) use of aspirin; Z79.84 Long term (current) use of oral hypoglycemic drugs; E78.5 Hyperlipidemia, unspecified
CPT/HCPCS: 27447; 01402; 36415; 64447; 64454; 73560; 76942; 80048; 82962; 85027; 97110; 97116; 97161; 97165; 97530; 97535; 99100; A9270; C1776; J0665; J0690; J1100; J1171; J2250; J2371; J2405; J2704; J3010; J3375; J7120

== ENCOUNTER 2024-12-16 10:44 | Outpatient (CLI) | payer MEDICARE, BC, SELFPAY | END 2024-12-16 10:45 | disposition home or self-care (01) | PROVIDERS: PCP Family Medicine; Visit Provider Family Medicine | DX: R30.0 Dysuria (principal) | CPT/HCPCS: 87086 ==

== ENCOUNTER 2025-01-27 13:00 | Outpatient (RCR) | payer MEDICARE, BC, SELFPAY ==
--- NOTE | 2024-12-14 12:39 | PT.OPEX ---
[facility] Outpatient Eval PT [facility] Outpatient Eval Start: 12/14/24 09:08 Freq: Status: Active Protocol: Document 12/14/24 12:08 ENM (Rec: 12/14/24 12:09 ENM [id number]) E-signed By Linsey Marquis, DPT Physical Therapy Outpatient Evaluation Insurance Information Recert Due Date 03/14/25 Insurance Name Medicare B Medical Diagnosis presence of left artificial knee joint s/p left TKA 12/12/24 Treating Diagnosis left knee pain, decreased knee ROM, impaired gait, impaired balance, muscle weakness Imaging Report MRI of the left knee dated 11/15/2024 prior to TKA: Information Complex tearing of the medial meniscus. Complex tearing of the lateral meniscus. 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 Grade 3-4 chondromalacia lateral compartment. Grade 2-3 chondromalacia patellofemoral compartment. Intact cruciate and collateral ligaments. Referring MD Anderson Subjective Subjective Patient is 2 days s/p L TKA DOS 11/12/24. They stayed in the hospital one night. Patient is taking oxy every 4 hours and tylenol every 6 hours. She lives in a house with 3 steps to get in. Has able to get in alright. It is all one flat level once she is in. Is getting around ok with the walker but notices sharper zinging pains when on her feet. Has been doing her exercises and using an ice machine that they bought on [employer]. They had a history a knee pains which worsened in October after she tore her meniscus in 3 places from stepping in a hole. They were prescribed a romtech machine for home use by Dr. Anderson which they will start to use today. Her goal is to get back to gardening after surgery. PMHx: diabetes, respiratory problems, arthritis, osteoporosis Pain Comments 09/01 Date of Surgery (If 12/12/24 applicable) Current Work Status Retired Objective Other/Pertinent Knee ROM Objective L 0-5-70 R 1-0-118 hip ROM WFL as seen per transfers strength: fair quad set requires ModA to complete SLR gait/balance: Patient ambulates with slow pace, decreased knee extension, decreased knee flexion and antalgic gait pattern. Moderate reliance on walker for support swelling/observation: superior patella: L 51 cm R 48.5 mid patella: L 50.5 cm R 45.5 cm inf patella: L 44 cm R [address] with moderate medial knee bruising and mild lateral bruising Assessment Assessment/ Patient presents to PT for evaluation after L TKA DOS 7 . They have a history for left knee pains which worsened after a meniscal tear in October that led to the knee replacement. Since surgery they have been managing pain with ice and medication. Pain is rated at a 4/10 with sharper zinging pain when they participate in walking. They are able to navigate their home environment well with 2WW and have support from daughter as well as spouse. Upon assessment patient displays decreased knee ROM (0- 5-70), impaired gait, impaired transfers, decreased quad strength and swelling. Impairments consistent with s/p TKA. They require ModA to complete to SLR with fair quad set noted. Global swelling was measured at 4- 5 cm compared to contralateral side. Patients activity was most limited today but their fatigue and nausea. Shari would greatly benefit from skilled PT to address impairments stated above for full return to PLOF after knee replacement. Primary Functional walking, transferring, standing, gardening Limitations Plan of Care Rehabilitation Good Potential Physical Therapy In 3-4 weeks: Goals 1. Patient will improve knee ROM to > 100 for improved ease of STS transfers 2.Patient will ambulate with improved mechanics x200', less than 2/10 knee pain with LRAD for improved household/community mobility 3. Patient will perform x10 SLR with improved form and strength to improve supine<>sit transfer In 6-8 weeks: 1. Patient will improve knee ROM to >115 in order to comfortably navigate stairs for household and community navigation 2. Patient will be able to walk up to 10 minutes without use of AD or report of increased knee pain 3. Patient will return to gardening activities without difficulty for return to PLOF Coordination/ Referral Source Communication With Treatment Plan/ Electrical Stimulation,Gait Training,Ice/Cold/ Direct Interventions Vasopneumatic,Joint Mobilization,Manual Therapy, Neuromuscular Re-ed,Self-Care/Home Management, Therapeutic Activities,Therapeutic Exercises Frequency/Duration 2x a week for 6-8 weeks Patient Will Be Completion of LTG(s),Independent w/HEP Discharged From Therapy Evaluation Billing Untimed Code 24 Treatment Minutes Complexity Low Certification Information Initial 12/14/24 Certification Date Ending Certification 03/14/25 Date Provider Signature Yes Required Provider Signature POC & Medical Necessity Shows Agreement With Physician NPI Number Write NPI# Here Physician Comment/ : Change Physician Signature Please Sign/Date Here & Date Requested
== END 2025-01-30 14:41 | disposition home or self-care (01) ==
PROVIDERS: PCP Family Medicine; Visit Provider Orthopaedic Surgery Sports Medicine
DX: Z47.1 Aftercare following joint replacement surgery (principal); Z96.652 Presence of left artificial knee joint; Z51.89 Encounter for other specified aftercare
CPT/HCPCS: 97110; 97140; 97161; J0690; J1100; J2371; J2405; J2704